=== PATIENT | female | born 1990 | race African-American/Black ===

== ENCOUNTER 2016-10-23 21:12 | Emergency (ER) | payer SELFPAY ==
[~2016-10-23] VITALS: Ht 160 cm; Wt 56.7 kg
[~2016-10-23 21:12] MED LIST: CYCL10TA9 PO; NAPR550T PO
[2016-10-23 21:50] LABS: BILIRUBIN,URINE NEGATIVE (NEGATIVE); KETONES,URINE NEGATIVE (NEGATIVE); LEUKOCYTE ESTERASE ,URINE 3+ (NEGATIVE); NITRITE,URINE NEGATIVE (NEGATIVE); PH,URINE 8 (5-9); PROTEIN,URINE NEGATIVE (NEGATIVE); UROBILINOGEN,URINE NORMAL (NORMAL)
--- NOTE | 2016-10-23 21:58 | ED Trauma-Multisystem ---
General Chief Complaint: Trauma-Non Activation Stated Complaint: R SIDE AND BACK PAIN Nursing Triage Note: FELL OFF TRAMPOLINE APPROX. 4FT. Source of Information: Patient Exam Limitations: No Limitations History of Present Illness Time Seen by Provider: 21:56 Initial Comments To ER with right sided chest wall pain after falling off of her trampoline landing on the right side of her chest on the ground. Knocked the wind out of her and she states she hyperventilated for a few minutes but then seemed to catch her breath. Location Injury Occurred: HOME Occurred: Just Prior to Arrival Severity: Mild Method of Injury: Fall Associated Symptoms (Fall): Denies Symptoms Allergies and Home Medications Allergies Coded Allergies: No Known Drug Allergies (Unverified , 07/10/13) Home Medications No Active Prescriptions or Reported Meds Constitutional: see HPI Eyes: No Symptoms Reported Ears: No Symptoms Reported Nose: No Symptoms Reported Mouth: No Symptoms Reported Throat: No Symptoms to Report Respiratory: no symptoms reported Cardiovascular: No Symptoms Reported Genitourinary: no symptoms reported Past Ihcrgia-Vyszrq-Cfrvgz Hx Patient Social History Alcohol Use: Occasionally Uses Recreational Drug Use: No Smoking Status: Never a Smoker 2nd Hand Smoke Exposure: No Recent Foreign Travel: No Contact w/Someone Who Travel: No Recent Infectious Disease Expo: No Recent Hopitalizations: No Immunizations Up To Date Tetanus Booster (TDap): Unknown PED Vaccines UTD: Yes Date of Influenza Vaccine: Jan 29, 2013 Seasonal Allergies Seasonal Allergies: Yes Surgeries HX Surgeries: No Reproductive System : No Physical Exam Vital Signs Vital Sign - Last 12Hours 10/23/16 21:41 Temp 98.1 Pulse 72 Resp 18 B/P (MAP) 121/84 Pulse Ox 100 O2 Delivery Room Air Temperature (Fahrenheit): 98.1 General Appearance: No Apparent Distress, WD/WN Head: No Evidence of Injury Eyes: Bilateral Eye EOMI, Bilateral Eye Normal Inspection, Bilateral Eye PERRL Ears, Nose, Throat: Hearing Grossly Normal, No Evidence of ENT Injury, No Dental Injury Neck: Full Range of Motion, Normal Inspection Cardiovascular: Regular Rate, Rhythm, Normal Peripheral Pulses Respiratory: Normal Breath Sounds, No Accessory Muscle Use, No Respiratory Distress, Other (there is no crepitus to palpation of the right chest wall. There is no deformity, erythema, ecchymosis, abrasion.) Gastrointestinal: Normal Bowel Sounds, Non Tender, Soft Extremity: Normal Capillary Refill, Normal Inspection Neurologic/Psychiatric: Alert, Oriented x3 Skin: Normal Color, Warm/Dry Progress/Results/Core Measures Results/Orders Lab Results Laboratory Tests Test 10/23/16 21:41 Range/Units My Orders Orders - MARQUIS CROWLEY APRN Ribs/Unilateral With Chest (10/23/16 21:40) Vital Signs/I&O Vital Sign - Last 12Hours 10/23/16 21:41 Temp 98.1 Pulse 72 Resp 18 B/P (MAP) 121/84 Pulse Ox 100 O2 Delivery Room Air Blood Pressure Mean: 96 Point of Care Testing Urine -Bedside: Negative Departure Impression Impression: Primary Impression: Chest wall contusion Disposition: HOME, SELF-CARE Condition: Stable Departure-Patient Inst. Decision time for Depature: 22:03 Referrals: [facility] (PCP/Family) Primary Care Physician Patient Instructions: CHEST CONTUSION Add. Discharge Instructions: 1. Return to ER for any concerns such as worsening pain shortness of breath cough or fevers. 2. Follow-up with your doctor next week 3. All discharge instructions reviewed with patient and/or family. Voiced understanding. Scripts No Active Prescriptions or Reported Meds Images Torso/Trunk 1 - Tenderness MARQUIS CROWLEY APRN Oct 23, 2016 21:58
[2016-10-23 22:22] LABS: SQUAMOUS EPITHELIAL CELL,UR 25-50 /HPF; WBC,URINE 25-50 /HPF
[2016-10-23 22:34] VITALS: BP 119/79
--- NOTE | 2016-10-24 07:27 | Diagnostic Imaging Report ---
INDICATION: Right rib pain post fall.. TECHNIQUE: Single view chest along with three views right ribs 10:10 p.m. CORRELATION STUDY: None FINDINGS: The heart size, mediastinal configuration and pulmonary vascularity are within normal limits. The lungs are clear with no consolidating infiltrate. There is no significant effusion or pneumothorax. There is no acute displaced right rib fracture. IMPRESSION: 1. No radiographic evidence for acute abnormality of the chest. 2. Negative for acute displaced right rib fracture. Dictated by: Dictated on workstation # [id number]
--- OUTSIDE RECORDS SUMMARY | 2016-10-24 19:40 | XMS REPORT ---
Author Author JOEL PICKETT Organization [employer] Address Unknown Phone Unavailable Care Team Providers Care Water Team Leader Name Role Phone JOEL PICKETT CP Unavailable Allergies No Known Allergies Problems No Known Problems Medications No Known Medications Results No Known Results Summary Purpose [employer] Submission
--- OUTSIDE RECORDS SUMMARY | 2016-10-24 19:40 | XMS REPORT | Continuity of Care Document ---
Author Author [facility] Organization [facility] Address Unknown Phone Unavailable Allergies Medications Problems Procedures Results Encounters ACCT No. Visit Date/Time Discharge Status Pt. Type Provider Facility Loc./Unit Complaint [id number] 07/10/2013 23:24:00 2013 00:22:00 DIS Emergency [id number] 09/25/2012 17:50:00 2012 23:59:59 CLS Outpatient
--- OUTSIDE RECORDS SUMMARY | 2016-10-24 19:40 | XMS REPORT ---
Author Author JANES CHAVEZ Organization [employer] Address Unknown Phone Unavailable Care Team Providers Care Delinquent Notice Machine Operator Name Role Phone JANES CHAVEZ Unavailable Allergies No Known Allergies Problems Problem Type Condition Code Onset Dates Condition Status Problem General counseling for initiation of other contraceptive measures V25.02 Active Problem Counseling on other sexually transmitted diseases V65.45 Active Problem Screening examination for venereal disease V74.5 Active Medications No Known Medications Results No Known Results Summary Purpose [employer] Submission
--- OUTSIDE RECORDS SUMMARY | 2016-10-24 19:41 | XMS REPORT ---
Author JOEL Gant Organization [employer] Address Unknown Phone Unavailable Care Team Providers Care Tractor Operator Battery Name Role Phone JOEL PICKETT CP Unavailable Allergies No Known Allergies Problems Problem Type Condition Code Onset Dates Condition Status Problem General counseling for initiation of other contraceptive measures V25.02 Active Problem Counseling on other sexually transmitted diseases V65.45 Active Problem Screening examination for venereal disease V74.5 Active Medications No Known Medications Results No Known Results Summary Purpose [employer] Submission
--- OUTSIDE RECORDS SUMMARY | 2016-10-24 19:41 | XMS REPORT ---
Author Author BRAYDEN PLEITEZ [facility] [employer] Address Unknown Phone Unavailable Care Team Providers Care Mri Manager Name Role Phone BRAYDEN PLEITEZ CP Unavailable Allergies, Adverse Reactions, Alerts Substance Reaction Event Type N.K.D.A. Info Not Available Non Drug Allergy Problems Problem Type Condition Code Onset Dates Condition Status Assessment Encounter for initial prescription of contraceptive pills Z30.011 Active Assessment Vaginal discharge N89.8 Active Assessment Encounter for counseling regarding contraception Z30.9 Active Assessment Hx of sexually transmitted disease Z86.19 Active Medications Medication Code System Code Instructions Start Date End Date Status Dosage Ortho Tri-Cyclen (28) [facility] [address]-46 0.18/0.215/0.25 MG-35 MCG Orally Once a day Feb 24, 2016 1 tablet Zithromax [facility] [address]-04 250 MG Orally Once a day Feb 24, 2016 4 tablets Flagyl [facility] [address]-86 500 MG Orally 2 times a day Feb 24, 2016 Mar 02, 2016 1 tablet Procedures Procedure Coding System Code Date TRICHOMONAS ASSAY W/OPTIC CPT-4 75373 Feb 24, 2016 LARA VAG, DNA, DIR PROBE CPT-4 15060 Feb 24, 2016 URINE TEST CPT-4 15044 Feb 24, 2016 CULTURE, BACTERIA, OTHER CPT-4 78812 Feb 24, 2016 No Charge CPT-4 63571 Feb 24, 2016 Office Visit, Est Pt., Level 4 CPT-4 83588 Feb 24, 2016 Vital Signs Date/Time: Feb 24, 2016 Cardiac Monitoring Heart Rate 76 bpm Weight 126.6 lbs Height 64 in BMI 21.73 Index Blood Pressure Diastolic 68 mmHg Blood Pressure Systolic 104 mmHg Results No Known Results Summary Purpose [employer] Submission
== END 2016-10-23 22:17 | disposition home or self-care (01) ==
LOC: EDUNIT# 21:12 → ER 21:16
DX: S20.20XA Contusion of thorax, unspecified, initial encounter (principal); Z32.02 Encounter for pregnancy test, result negative; W17.89XA Other fall from one level to another, initial encounter; Y93.44 Activity, trampolining
CPT/HCPCS: 71101; 81000; 84703; 87088; 99282

== ENCOUNTER → 2017-05-17 | Outpatient (CLI) | payer SELFPAY ==
--- NOTE | 2017-05-17 19:02 | Diagnostic Imaging Report ---
PROCEDURE: US OB SINGLE FETUS <14 WKS. TECHNIQUE: Multiple real-time grayscale images were obtained over the gravid uterus in various projections. INDICATION: Early . FINDINGS: There are no prior studies available for comparison. There is a gestational sac within the uterus containing a single live fetus. heart motion is noted and a rate of 174 bpm is recorded. The crown-rump length suggests the estimated gestational age is 8 weeks 6 days +/- 1 week. There are no obvious abnormalities identified. The amniotic fluid volume is within normal limits. At this time, it is not certain where the placenta will develop. There is no pelvic mass or free fluid collection noted. IMPRESSION: 1. There is a single live intrauterine of approximately 8 weeks 6 days gestation +/- 1 week. The EDC is 12/21/2017. 2. There are no obvious abnormalities identified. If a more sensitive evaluation of the anatomy is desired, then a short-term (10-12 weeks) follow-up OB ultrasound exam should be obtained. 3. There is no pelvic mass or free fluid collection noted. Dictated on workstation # [id number]
== END ==
LOC: RAD 11:58
PROVIDERS: ATTEND Family Medicine
DX: Z34.01 Encounter for supervision of normal first pregnancy, first trimester (principal); Z3A.08 8 weeks gestation of pregnancy
CPT/HCPCS: 76801

== ENCOUNTER → 2017-07-19 | Outpatient (CLI) | payer MEDICAID ==
--- NOTE | 2017-07-19 11:51 | Diagnostic Imaging Report ---
INDICATION: survey. TECHNIQUE: Multiple Real-time grayscale images were obtained over the gravid uterus. COMPARISON: 05/17/2017. FINDINGS: There is a single live fetus in a cephalic presentation. The placenta is anterior. The placenta appears to cover the internal cervical os, consistent with previa. The amniotic fluid volume is normal. The heart rate was recorded at 142 BPM. The survey demonstrates the kidneys, bladder, and stomach to be unremarkable. The spine is unremarkable. The intracranial structures are unremarkable. There is a three-vessel cord with a normal cord insertion. Biometrical measurements are as follows: Biparietal 3.75 cm, age 17 weeks 4 days. Head circumference 15.08 cm, age 18 weeks 1 days. Abdominal circumference 12.89 cm, age 18 weeks 4 days. Femur length 2.86 cm, age 18 weeks 6 days. Sonographic estimate age: 18 weeks 2 days. Sonographic estimated date of delivery: 12-18-17. Estimated Weight: 224 gm (+/- 36 gm). LMP percentile: 84%. heart rate: 142 beats per minute. number: 1 of 1. IMPRESSION: Single live IUP of 18-20 weeks gestational age demonstrating normal interval growth when compared with the prior ultrasound from 05/17/2017. Note is made of an anterior placenta previa. A followup ultrasound in the later second or third trimester is recommended. Dictated by: Dictated on workstation # [id number]
== END ==
LOC: RAD 09:54
PROVIDERS: ATTEND Family Medicine
DX: Z36.89 Encounter for other specified antenatal screening (principal); Z3A.18 18 weeks gestation of pregnancy
CPT/HCPCS: 76805

== ENCOUNTER → 2017-08-30 | Outpatient (CLI) | payer MEDICAID ==
--- NOTE | 2017-08-30 16:16 | Diagnostic Imaging Report ---
PROCEDURE: US right lower extremity venous. TECHNIQUE: Multiple real-time grayscale images were obtained over the right lower extremity in various projections. Additional duplex Doppler and color Doppler images were also obtained. INDICATION: Right calf pain. There are no prior studies available for comparison. FINDINGS: There is generally good blood flow and compressibility at all levels. There is no sign of a deep venous thrombosis. IMPRESSION: There is no evidence for deep venous thrombosis of the right lower extremity. Dictated by: Dictated on workstation # [id number]
== END ==
LOC: RAD 15:42
PROVIDERS: ATTEND Family Medicine
DX: O99.89 Other specified diseases and conditions complicating pregnancy, childbirth and the puerperium (principal); M79.661 Pain in right lower leg; Z3A.00 Weeks of gestation of pregnancy not specified

== ENCOUNTER 2017-09-18 14:25 | Outpatient (CLI) | payer MEDICAID ==
[~2017-09-18] VITALS: Ht 160 cm; Wt 63.2 kg
[2017-09-18 14:30] VITALS: BP 125/82
--- NOTE | 2017-09-18 15:54 | Diagnostic Imaging Report ---
INDICATION: Vaginal bleeding and history of placenta previa. TECHNIQUE: Multiple real-time grayscale images were obtained over the gravid uterus. COMPARISON: 07/19/2017. FINDINGS: There is a single live fetus in a cephalic presentation. Placenta is anterior. No previa is identified on today's study. The amniotic fluid volume is normal. heart rate is recorded at 149 beats per minute. IMPRESSION: Obstetric ultrasound demonstrating an anterior placenta with no evidence of placenta previa on today's study. Dictated by: Dictated on workstation # [id number]
--- NOTE | 2017-09-20 10:56 | Physician Query-Final Dx ---
NORBERTO ESCALONA 09/20/17 1056: Clinic Account Progress/Dx Physician Query: Please give diagnosis Date of Service September 18, 2017 at 14:25 CARROLL JERONIMO MD 09/22/17 0949: Clinic Account Progress/Dx DIAGNOSIS: Diagnosis 1. IUP at 27 weeks 2. Vaginal spotting of blood--reassuring NORBERTO ESCALONA September 20, 2017 10:56 CARROLL JERONIMO MD September 22, 2017 09:49
== END 2017-09-18 16:05 | disposition home or self-care (01) ==
LOC: WSo 14:25 → LDRP 14:25 → WSo 16:05
PROVIDERS: ATTEND Family Medicine
DX: O26.852 Spotting complicating pregnancy, second trimester (principal); Z3A.27 27 weeks gestation of pregnancy
CPT/HCPCS: 76816; 99213

== ENCOUNTER 2017-11-17 15:49 | Observation (INO) | payer MEDICAID ==
[~2017-11-17] VITALS: Ht 162.6 cm; Wt 71.4 kg
[2017-11-17 16:07] VITALS: BP 127/74
[2017-11-17 16:40] VITALS: BP 117/68
[2017-11-17] MEDS ORDERED: hydrOXYzine (VISTARIL) 25 MG CAP PO NR (18:10)
[2017-11-17 19:39] VITALS: BP 126/76
[2017-11-17] MEDS ORDERED: D5 LR IV SOLUTION 1,000 ML IV ONE (20:05)
[2017-11-17] MEDS ORDERED: TERBUTALINE INJ 1 MG/ML (BRETHINE) AMP ONE (20:05)
[2017-11-17] MEDS ORDERED: TERBUTALINE INJ 1 MG/ML (BRETHINE) AMP SC ONE (20:15)
[2017-11-17] MEDS: D5 LR IV SOLUTION 1,000 ML IV SCH (20:26)
[2017-11-17 23:39] VITALS: BP 125/69
[2017-11-18] MEDS: D5 LR IV SOLUTION 1,000 ML IV SCH (03:26)
[2017-11-18 04:00] VITALS: BP 109/65
[2017-11-18 07:45] VITALS: BP 117/77
[2017-11-18] MEDS ORDERED: HYDR25CA PO (10:24)
[2017-11-18] MEDS ORDERED: METR500T PO (10:31)
[2017-11-18] MEDS ORDERED: hydrOXYzine (VISTARIL) 25 MG CAP PO ONE (10:45)
[2017-11-18] MEDS ORDERED: metroNIDAZOLE 500 MG (FLAGYL) TAB PO ONE (10:45)
--- NOTE | 2017-11-20 21:31 | Physician Query-Final Dx ---
PITA CALLEJAS 11/20/172130: Final Diagnosis Give Final Diagnosis Please give Final Diagnosis CLEVELAND MARVIN MD 11/28/172016: Final Diagnosis Give Final Diagnosis Third trimester Decreased Movement PITA CALLEJAS Nov 20, 2017 21:31 CLEVELAND MARVIN MD Nov 28, 2017 20:17
--- NOTE | 2017-11-28 20:43 | Short Stay Summary ---
History of Present Illness History of Present Illness Reason for visit/HPI Patient 35 weeks that presented to ER with contractions and decreased movement. Patient had cervical change and was admitted for observation due to gestation. Date of Admission Nov 17, 2017 at 15:49 Date of Discharge Nov 18, 2017 at 10:40 Time Seen by Provider: 09:45 Attending Physician Kourtney Valencia MD Admitting Physician Matthias Ruiz MD Consult Allergies and Home Medications Allergies Coded Allergies: No Known Drug Allergies (Unverified , 07/10/13) Home Medications Hydroxyzine Pamoate 25 Mg Capsule, 25 MG PO BID Prescribed by: NIVIA BLAKE on 11/18/17 1024 Metronidazole 500 Mg Tablet, 500 MG PO BID Prescribed by: NIVIA BLAKE on 11/18/17 1031 Patient Home Medication List Home Medication List Reviewed: Yes Past Gbwmsnc-Phudnb-Gihiwt Hx Patient Social History Alcohol Beverage of Choice: Beer 2nd Hand Smoke Exposure: No Physical Abuse Screen: No Sexual Abuse: No Recent Foreign Travel: No Contact w/other who traveled: No Recent Hopitalizations: No Recent Infectious Disease Expo: No Immunizations Up To Date Tetanus Booster (TDap): Unknown Pediatric: Yes Date of Influenza Vaccine: Jan 29, 2013 Seasonal Allergies Seasonal Allergies: Yes Surgeries No Respiratory No Cardiovascular No Neurological No Reproductive System Expected Date of Delivery: Dec 21, 2017 Hx : 1 Genitourinary No Gastrointestinal No Musculoskeletal No Endocrine History of Endocrine Disorders: No HEENT History of HEENT Disorders: No Cancer No Psychosocial History of Psychiatric Problem: No Integumentary History of Skin or Integumenta: No Blood Transfusions History of Blood Disorders: No Constitutional: no symptoms reported; No chills, No fever, No malaise, No weakness EENTM: no symptoms reported Respiratory: no symptoms reported; No cough, No short of breath Cardiovascular: no symptoms reported; No chest pain, No edema, No palpitations Gastrointestinal: abdominal pain (with contractions) Genitourinary: discharge; No dysuria; frequency; No hematuria : Yes Musculoskeletal: no symptoms reported; No back pain, No joint pain, No muscle pain Skin: no symptoms reported Psychiatric/Neurological: No Symptoms Reported Physical Exam Vital Signs Capillary Refill : Height, Weight, BMI Height: 5'4.00" Weight: 157lbs. 6.0oz. 71.517407zp; 27.0 BMI Method:Stated General Appearance: No Apparent Distress, WD/WN HEENT: PERRL/EOMI Neck: Full Range of Motion, Normal Inspection, Non Tender, Supple Respiratory: Chest Non Tender, Normal Breath Sounds, No Accessory Muscle Use, No Respiratory Distress Cardiovascular: Regular Rate, Rhythm, No Edema, No Murmur Gastrointestinal: Normal Bowel Sounds, Non Tender, Soft, Other (gravid, no contractions palpated) Back: No CVA Tenderness, No Vertebral Tenderness Extremity: Non Tender, No Calf Tenderness, No Pedal Edema Neurologic/Psychiatric: Alert, Oriented x3, Normal Mood/Affect Skin: Normal Color, Warm/Dry Lymphatic: No Adenopathy Short Stay Diagnosis Discharge Diagnosis-Short Stay Admission Diagnosis: Third trimester pregnacy 35 week gestation labor Final Discharge Diagnosis: See Above Conclusion Conclusion/Plan 26 yo @ 35 wga that presented with labor. Patient had cervical change and was given a dose of terbutiline and visteril with IV hydration and contractions stopped. No further cervical change was made and patient was discharged home with close follow up in clinic 3 days later. Copy Copies To 1: KORTNEY ANGELES MD, HOLLY R MD Nov 28, 2017 20:43
[2017-12-05] MEDS ORDERED: IBUP-844 PO (07:33)
== END 2017-11-18 10:40 | disposition home or self-care (01) ==
LOC: LDRP 15:49 → WSo 15:58 → LDRP 15:59 → WSo 15:59 → UNDOADMOB 19:56 → LDRP 19:56 → WSo 11-18 10:45 → UNDODISOB 11-18 10:51 → EDSTATUS 11-22 16:48
PROVIDERS: ADMIT Family Medicine; ATTEND Family Medicine
DX: O60.03 Preterm labor without delivery, third trimester (principal); O36.8130 Decreased fetal movements, third trimester, not applicable or unspecified; Z3A.35 35 weeks gestation of pregnancy
CPT/HCPCS: 96360; 96361; 96372; 99211; G0378

== ENCOUNTER 2017-12-03 09:14 | Inpatient (IN) | payer MEDICAID ==
[2017-12-03] VITALS (29 sets, daily range): BP systolic 121–172; BP diastolic 64–97
[~2017-12-03] VITALS: Ht 162.6 cm; Wt 73.1 kg
[~2017-12-03 09:14] MED LIST changes: +HYDR25CA PO; +METR500T PO
[2017-12-03] MEDS ORDERED: D5 LR IV SOLUTION 1,000 ML IV SCH (09:52)
[2017-12-03] MEDS ORDERED: D5 LR IV SOLUTION 1,000 ML IV ONE (09:53)
[2017-12-03] MEDS ORDERED: SUFENTA 0.6MCG/ML BUPIVA 0.125 0 ML ONE (10:03)
[2017-12-03 10:18] LABS: BASOPHILS % (AUTO) 0 % (0-10); EOSINOPHILS # (AUTO) 0.1 10^3/uL (0.0-0.3); EOSINOPHILS % (AUTO) 1 % (0-10); HEMATOCRIT 33 % (35-52); LYMPHOCYTES # (AUTO) 1.9 X 10^3 (1.0-4.0); LYMPHOCYTES % (AUTO) 21 % (12-44); MEAN CORPUSCULAR HEMOGLOBIN 32 PG (25-34); MEAN CORPUSCULAR HGB CONC 33 G/DL (32-36); MEAN CORPUSCULAR VOLUME 95 FL (80-99); MEAN PLATELET VOLUME 12.8 FL (7.4-10.4); MONOCYTES # (AUTO) 0.6 X 10^3 (0.0-1.0); MONOCYTES % (AUTO) 7 % (0-12); NEUTROPHILS # (AUTO) 6.5 X 10^3 (1.8-7.8); NEUTROPHILS % (AUTO) 71 % (42-75); PLATELET COUNT 109 10^3/uL (130-400); RED BLOOD COUNT 3.49 10^6/uL (4.35-5.85); RED CELL DISTRIBUTION WIDTH 13.9 % (10.0-14.5); WHITE BLOOD COUNT 9.2 10^3/uL (4.3-11.0)
[2017-12-03] MEDS ORDERED: OXYTOCIN/NORMAL SALINE 500 ML IV SCH ×2 (10:56→14:00)
--- NOTE | 2017-12-03 11:01 | History & Physical-OB ---
OB - Chief Complaint & HPI Date/Time Date of Admission: Date of Admission: Dec 03, 2017 at 09:50 Time Seen by Provider: 10:45 Chief Complaint/History OB-Reason for Admission/Chief: Onset of Labor Hx : 1 Hx Para: 0 Expected Date of Delivery: Dec 20, 2017 Gestational Age in Weeks: 37 Gestational Age in Days: 4 Admission Nurse Assessment Rev: Yes History of Labs GBS negative Allergies and Home Medications Allergies Coded Allergies: No Known Drug Allergies (Unverified , 07/10/13) Home Medications Hydroxyzine Pamoate 25 Mg Capsule, 25 MG PO BID Prescribed by: NIVIA BLAKE on 11/18/17 1024 Metronidazole 500 Mg Tablet, 500 MG PO BID Prescribed by: NIVIA BLAKE on 11/18/17 1031 Patient Home Medication List Home Medication List Reviewed: Yes OB - History Hx of Present Care: Yes Ultrasounds: Normal mid trimester US Obstetrical Complications: None Medical Complications: None Patient Past Medical History No chronic medical problems Social History/Family History 2nd Hand Smoke Exposure: No Immunizations Tetanus Booster (TDap): Unknown Date of Influenza Vaccine: Jan 29, 2013 OB - Admission Exam Physical Exam HEENT: Moist Membranes Heart: Rhythm Normal Lungs: Clear Abdomen: Gravid Cervical Dilatation: 6cm (on presentation) Effacement: 75% Station: -2 Membranes: Intact Heart Rate: 140's Accelerations: Accelerations Present Short Term Variability: Present Fci Variability: Average (6-25) Contractions on Admission: 6-10 Minutes Apart Intensity: Moderate Labs Laboratory Tests Test 12/03/17 10:05 Range/Units White Blood Count 9.2 4.3-11.0 10^3/uL Red Blood Count 3.49 L 4.35-5.85 10^6/uL Hemoglobin 11.0 L 11.5-16.0 G/DL Hematocrit 33 L 35-52 % Mean Corpuscular Volume 95 80-99 FL Mean Corpuscular Hemoglobin 32 25-34 PG Mean Corpuscular Hemoglobin Concent 33 32-36 G/DL Red Cell Distribution Width 13.9 10.0-14.5 % Platelet Count 109 L 130-400 10^3/uL Mean Platelet Volume 12.8 H 7.4-10.4 FL Neutrophils (%) (Auto) 71 42-75 % Lymphocytes (%) (Auto) 21 12-44 % Monocytes (%) (Auto) 7 0-12 % Eosinophils (%) (Auto) 1 0-10 % Basophils (%) (Auto) 0 0-10 % Neutrophils # (Auto) 6.5 1.8-7.8 X 10^3 Lymphocytes # (Auto) 1.9 1.0-4.0 X 10^3 Monocytes # (Auto) 0.6 0.0-1.0 X 10^3 Eosinophils # (Auto) 0.1 0.0-0.3 10^3/uL Basophils # (Auto) 0.0 0.0-0.1 10^3/uL OB - Assessment/Plan/Diagnosis Assessment Assessment: active labor (at 37w4d) Admission Dx IUP at term 37w4d in labor Admission Status: Inpatient Order (span 2 midnights) Reason for Inpatient Admission: L&D Plan Plan: Expectant Management Induction Method: AROM Other Plan Epidural CARROLL JERONIMO MD Dec 03, 2017 11:01
[2017-12-03] MEDS ORDERED: BUPIVACAINE 0.25% 30 ML (SENSORCAINE) VIAL ONE (11:06)
[2017-12-03] MEDS ORDERED: fentaNYL INJECTION 100 MCG/2 ML AMP ONE (11:06)
[2017-12-03] MEDS ORDERED: SUFENTA 0.6MCG/ML BUPIVA 0.125 100 ML ONE (11:07)
[2017-12-03] MEDS ORDERED: LACTATED RINGERS 1,000 ML IV ONE (11:50)
[2017-12-03] MEDS ORDERED: NALOXONE 0.4 MG/ML 1 ML (NARCAN) VIAL IV PRN (12:00)
[2017-12-03] MEDS ORDERED: CATHETER FLUSH 10 ML SYR IV PRN (12:00)
[2017-12-03] MEDS ORDERED: EPIDURAL (SUFENTA 0.6MCG/ML BUPIVA 0.125%) 100 ML BAG EPI SCH (12:00)
[2017-12-03] MEDS ORDERED: TETANUS,DIPTH,PERTUSS P/F (BOOSTRIX) 0.5 ML VIAL IM ONE (14:00)
[2017-12-03] MEDS ORDERED: CATHETER FLUSH 10 ML SYR IV SCH (14:00)
[2017-12-03] MEDS ORDERED: MEASLES,MUMPS,RUBELLA 1 EA INJ SQ ONE (14:00)
[2017-12-03] MEDS ORDERED: HYDROcodone/APAP 5 MG/325 MG (LORTAB) TAB PO PRN (14:00)
--- NOTE | 2017-12-03 14:04 | OB Labor & Delivery Record ---
L&D History Date of Service Date of Service: Dec 03, 2017 History Expected Date of Delivery: Dec 20, 2017 Gestational Age in Weeks: 37 Hx : 1 Hx Para: 0 Complications Events: Routine care Operative Indications (Cesarea: N/A-Vaginal Delivery Intrapartal Events: None L&D Stage1 Stage One Onset of Labor - Date: Dec 03, 2017 Onset of Labor - Time: 06:00 Monitors and Tracing Monitor Mode: Internal Monitor Accelerations: Uniform Monitor Decelerations: Early Public Services Assistant Variability: Average (6-10) Short Term Variability: Present Presentation: Vertex Signs of Distress by FHT Signs of Distress no Rupture of Membranes Spontaneous Ruture of Membrane: No Amniotic Membrane Fluid Desc.: Clear Induction/Anesthesia Epidural Cath Placement - Time: 1127 L&D Stage2 Stage Two Stage II Date: Dec 03, 2017 Stage II Time: 13:34 Monitors and Tracing Monitor Mode: Internal Monitor Accelerations: Uniform Monitor Decelerations: Early Fci Variability: Average (6-10) Short Term Variability: Present Position: Left Occiput Anterior Presentation: Vertex Signs of Distress by FHT Signs of Distress no Cord Descript/Complications Cord Vessel Description: 3 Vessels Delivery Type Delivery Method: Spontaneous Vaginal Anterior Shoulder: Left Episiotomy/Perineal Laceration Laceraction(s)/Extensions: Yes Episiotomy Description: Midline Sutures Used: Vicryl Condition of Delivery 1 minute Comment: 8 5 minute Comment: 9 Condition of Infant Condition of Infant: Living Exam: No Observed Abnormalities Resuscitation Resuscitation: N/A - Spontaneous Resp L&D Stage3 Stage Three Stage III Date: Dec 03, 2017 Stage III Time: 13:36 Pictocin Pitocin ml/hr: 125 Placenta Delivery Placenta Delivery: Spontaneous Delivery Summary Summary Estimated blood loss (mL): 200 Condition of Delivery Examined: Cervix Examined Post Hemorrhage: No Intervention Required none CARROLL JERONIMO MD Dec 03, 2017 14:04
[2017-12-03] MEDS: IBUPROFEN 600 MG (MOTRIN) TAB PO SCH ×2 (17:20→23:13)
[2017-12-03] MEDS: WITCH HAZEL(TUCKS) 40 EA JAR TOP PRN (18:52)
[2017-12-03] MEDS: BENZOCAINE/MENTHOL (DERMOPLAST) 56 ML CAN TP PRN (18:52)
[2017-12-04] VITALS (7 sets, daily range): BP systolic 119–161; BP diastolic 67–103
[2017-12-04 05:40] LABS: BASOPHILS % (AUTO) 0 % (0-10); EOSINOPHILS # (AUTO) 0.1 10^3/uL (0.0-0.3); EOSINOPHILS % (AUTO) 1 % (0-10); HEMATOCRIT 29 % (35-52); HEMOGLOBIN 9.7 G/DL (11.5-16.0); LYMPHOCYTES # (AUTO) 1.6 X 10^3 (1.0-4.0); LYMPHOCYTES % (AUTO) 17 % (12-44); MEAN CORPUSCULAR HEMOGLOBIN 31 PG (25-34); MEAN CORPUSCULAR HGB CONC 33 G/DL (32-36); MEAN CORPUSCULAR VOLUME 95 FL (80-99); MEAN PLATELET VOLUME 12.8 FL (7.4-10.4); MONOCYTES # (AUTO) 0.6 X 10^3 (0.0-1.0); MONOCYTES % (AUTO) 6 % (0-12); NEUTROPHILS # (AUTO) 7.5 X 10^3 (1.8-7.8); NEUTROPHILS % (AUTO) 76 % (42-75); PLATELET COUNT 112 10^3/uL (130-400); RED BLOOD COUNT 3.09 10^6/uL (4.35-5.85); RED CELL DISTRIBUTION WIDTH 13.9 % (10.0-14.5); WHITE BLOOD COUNT 9.8 10^3/uL (4.3-11.0)
[2017-12-04] MEDS: IBUPROFEN 600 MG (MOTRIN) TAB PO SCH ×3 (06:04→19:53)
--- NOTE | 2017-12-04 07:50 | Progress Note (SOAP) ---
Subjective Subjective/Events-last exam No current complaints. No heavy vaginal bleeding. Review of Systems Date Seen by Provider: Dec 04, 2017 Time Seen by Provider: 07:30 Objective Exam Last Set of Vital Signs Vital Signs Date Time Temp Pulse Resp B/P (MAP) Pulse Ox O2 Delivery O2 Flow Rate FiO2 12/04/17 04:02 97.4 72 16 139/87 (104) 97 Room Air Capillary Refill : I&O Intake and Output 12/04/17 00:00 Intake Total 1900 ml Balance 1900 ml Intake IV Total 1900 ml Daily Weight Change No Abdomen: Soft (with firm uterus) Results/Procedures Lab Laboratory Tests 12/03/17 10:05: White Blood Count 9.2, Red Blood Count 3.49L, Hemoglobin 11.0L, Hematocrit 33L, Mean Corpuscular Volume 95, Mean Corpuscular Hemoglobin 32, Mean Corpuscular Hemoglobin Concent 33, Red Cell Distribution Width 13.9, Platelet Count 109L, Mean Platelet Volume 12.8H, Neutrophils (%) (Auto) 71, Lymphocytes (%) (Auto) 21 , Monocytes (%) (Auto) 7, Eosinophils (%) (Auto) 1, Basophils (%) (Auto) 0, Neutrophils # (Auto) 6.5, Lymphocytes # (Auto) 1.9, Monocytes # (Auto) 0.6, Eosinophils # (Auto) 0.1, Basophils # (Auto) 0.0 12/04/17 05:08: White Blood Count 9.8, Red Blood Count 3.09L, Hemoglobin 9.7L, Hematocrit 29L, Mean Corpuscular Volume 95, Mean Corpuscular Hemoglobin 31, Mean Corpuscular Hemoglobin Concent 33, Red Cell Distribution Width 13.9, Platelet Count 112L, Mean Platelet Volume 12.8H, Neutrophils (%) (Auto) 76H, Lymphocytes (%) (Auto) 17, Monocytes (%) (Auto) 6, Eosinophils (%) (Auto) 1, Basophils (%) (Auto) 0, Neutrophils # (Auto) 7.5, Lymphocytes # (Auto) 1.6, Monocytes # (Auto) 0.6, Eosinophils # (Auto) 0.1, Basophils # (Auto) 0.0 Assessment/Plan Assessment/Plan Assessment & Plan 1. S/P day 1 -routine PP care orders Clinical Quality Measures DVT/VTE Risk/Contraindication: Risk Factor Score Per Nursin RFS Level Per Nursing on Admit: 1=Low/No VTE PPX CARROLL JERONIMO MD Dec 04, 2017 07:50
[2017-12-04] MEDS: PRENATAL VITAMIN 1 EA TAB PO SCH (08:20)
--- NOTE | 2017-12-04 12:41 | Anesthesia-Regional Post-Op ---
Regional Patient Condition Mental Status: Alert, Oriented x3 Circulation: Same as Pre-Op Headache: Absent Sensation: Full Recovery Motor Block: Absent Post Op Complications Complications None Follow Up Care/Instructions Patient Instructions None needed. Anesthesia/Patient Condition Patient is doing well, no complaints, stable vital signs, no apparent adverse anesthesia problems. No complications reported per nursing. MIN BEST CRNA Dec 04, 2017 12:41
[2017-12-05] MEDS: IBUPROFEN 600 MG (MOTRIN) TAB PO SCH ×2 (02:42→09:20)
[2017-12-05 06:00] VITALS: BP 155/89
--- NOTE | 2017-12-05 07:29 | Discharge Summary ---
Diagnosis/Chief Complaint Date of Admission Dec 03, 2017 at 09:50 Date of Discharge December 05, 2017 Discharge Date: Dec 05, 2017 Discharge Time: 07:45 Admission Diagnosis Admission Diagnosis 1. Intrauterine at term Discharge Diagnosis 1. Intrauterine at term 37 weeks 4 days gestation 2. Isolated high blood pressure following delivery Reason Hospital Visit 26-year-old 1 term 1 initially presented to labor and delivery during the morning of December 03, 2017 in labor. Patient was dilated to 6 cm upon presentation and noted to be 37 weeks 4 days gestation. Her EDC is December 20, 2017. Her care was obtained through [facility] and was essentially unremarkable. Discharge Summary-OBS Procedures 1. Epidural per anesthesia 2. Spontaneous vaginal delivery 3. Repair of midline episiotomy Discharge Physical Examination Allergies: Coded Allergies: No Known Drug Allergies (Unverified , 07/10/13) Vitals & I&Os Vital Signs Date Time Temp Pulse Resp B/P (MAP) Pulse Ox O2 Delivery O2 Flow Rate FiO2 12/05/17 06:00 97.6 66 18 155/89 (111) Room Air 12/04/17 20:00 98 General Appearance: No Acute Distress Respiratory: Clear to Auscultation Cardiovascular: Regular Rate Abdominal: Soft (with firm uterus) Hospital Course Patient admitted during the morning of December 03, 2017 in labor. Patient ultimately went on to receive epidural per anesthesia and spontaneous vaginal delivery. Infant had received Apgars of 8 at 1 minute and 9 at 5 minutes. See labor and delivery summary for full details. Following delivery patient underwent routine care orders. She had no complications other than occasional headache during the course of her stay. She was noted to have slight elevation of blood pressure but this resolved on dismissal. She was noted to have a hemoglobin of 9.7 compared to 11.1 on admission. She was without shortness of breath she denied any leg pain. She tolerated regular diet and was felt ready for dismissal in the morning of December 05, 2017. Discharge Instructions to patient/family Please see electronic discharge instructions given to patient. Discharge Medications Reviewed and agree with Discharge Medication list on patient's Discharge Instruction sheet Clinical Quality Measures DVT/VTE Risk/Contraindication: Risk Factor Score Per Nursin RFS Level Per Nursing on Admit: 1=Low/No VTE PPX CARROLL JERONIMO MD Dec 05, 2017 07:29
[2017-12-05] MEDS ORDERED: IBUP-844 PO (07:33)
--- NOTE | 2017-12-05 07:34 | Discharge Inst-Women's Service ---
Discharge Inst-Women's Serv Depart Medication/Instructions New, Converted or Re-Newed RX: Transmitted to Pharmacy Consults/Follow Up Additional Follow Up: Yes (Dr. Jeronimo in 6 weeks at [facility]) Activity Activity: Activity as Tolerated Driving Instructions: No Driving for 1 Week Nothing Inside Vagina: No [place] (For 6 weeks) Diet Discharge Diet: Regular Diet Return to The Hospital For: As below Symptoms to Report to : Bleeding Excessive, Pain Increased, Fever Over 101 Degrees F, Vaginal Bleeding Increase, Vaginal Discharge Foul For Any Problems or Questions: Contact Your Physician CARROLL JERONIMO MD Dec 05, 2017 07:34
[2017-12-05 09:16] VITALS: BP 149/82
[2017-12-05] MEDS: BENZOCAINE/MENTHOL (DERMOPLAST) 56 ML CAN TP PRN (09:19)
[2017-12-05] MEDS: PRENATAL VITAMIN 1 EA TAB PO SCH (09:19)
[2017-12-05] MEDS: WITCH HAZEL(TUCKS) 40 EA JAR TOP PRN (09:19)
== END 2017-12-05 12:00 | disposition home or self-care (01) | DRG 774 ==
LOC: LDRP 09:14 → WSo 09:14 → LDRP 09:50
PROVIDERS: ADMIT Family Medicine; ATTEND Family Medicine
PROC: 10E0XZZ Delivery of Products of Conception, External Approach (ICD-10-PCS; principal; 2017-12-03)
PROC: 0W8NXZZ Division of Female Perineum, External Approach (ICD-10-PCS; 2017-12-03)
DX: O90.89 Other complications of the puerperium, not elsewhere classified (principal); R03.0 Elevated blood-pressure reading, without diagnosis of hypertension; Z37.0 Single live birth; Z3A.37 37 weeks gestation of pregnancy
CPT/HCPCS: 36415; 85025; 86850; 86900; 86901; 99212

== ENCOUNTER 2018-10-23 03:57 | Emergency (ER) | payer MEDICAID ==
[~2018-10-23] VITALS: Ht 162.6 cm; Wt 54.4 kg
[~2018-10-23 03:57] MED LIST changes: +IBUP-844 PO
--- OUTSIDE RECORDS SUMMARY | 2018-10-23 04:04 | XMS REPORT | Continuity of Care Document ---
Author Organization Unknown Address Unknown Allergies Active Description Code Type Severity Reaction Onset Reported/Identified Relationship to Patient Clinical Status Yes No Known Drug Allergies [id number] Drug Allergy Unknown N/A 07/10/2013 Medications There is no data. Problems Date Dx Coded Attending Type Code Diagnosis Diagnosed By 10/23/2016 MARQUIS CROWLEY APRN Ot R07.89 OTHER CHEST PAIN 10/23/2016 MARQUIS CROWLEY APRN Ot S20.20XA CONTUSION OF THORAX, UNSPECIFIED, INITIA 10/23/2016 MARQUIS CROWLEY APRN Ot W17.89XA OTHER FALL FROM ONE LEVEL TO ANOTHER, IN 10/23/2016 MARQUIS CROWLEY APRN Ot Y93.44 ACTIVITY, TRAMPOLINING 10/23/2016 MARQUIS CROWLEY APRN Ot Z32.02 ENCOUNTER FOR TEST, RESULT NEG 07/14/2017 CARROLL JERONIMO MD, Ot Z34.01 ENCNTR FOR SUPRVSN OF NORMAL FIRST PREG, 07/14/2017 CARROLL JERONIMO MD, Ot Z3A.08 8 WEEKS GESTATION OF 08/03/2017 CARROLL JERONIMO MD, Ot Z36.89 ENCOUNTER FOR OTHER SPECIFIED 08/03/2017 CARROLL JERONIMO MD, Ot Z3A.18 18 WEEKS GESTATION OF 08/30/2017 CARROLL JERONIMO MD, Ot Z34.01 ENCNTR FOR SUPRVSN OF NORMAL FIRST PREG, 08/30/2017 CARROLL JERONIMO MD, Ot Z3A.08 8 WEEKS GESTATION OF 08/30/2017 CARROLL JERONIMO MD, Ot Z36.89 ENCOUNTER FOR OTHER SPECIFIED 08/30/2017 CARROLL JERONIMO MD, Ot Z3A.18 18 WEEKS GESTATION OF 08/31/2017 CARROLL JERONIMO MD, Ot M79.661 PAIN IN RIGHT LOWER LEG 08/31/2017 CARROLL JERONIMO MD, Ot O99.89 OT DISEASES AND CONDITIONS COMPL PREG/C 08/31/2017 CARROLL JERONIMO MD, Ot Z3A.00 WEEKS OF GESTATION OF NOT SPEC 08/31/2017 CARROLL JERONIMO MD, Ot Z34.01 ENCNTR FOR SUPRVSN OF NORMAL FIRST PREG, 08/31/2017 CARROLL JERONIMO MD, Ot Z3A.08 8 WEEKS GESTATION OF 09/18/2017 KORTNEY ANGELES MD Ot O26.852 SPOTTING COMPLICATING , SECOND 09/18/2017 KORTNEY ANGELES MD Ot Z3A.27 27 WEEKS GESTATION OF 09/26/2017 KORTNEY ANGELES MD Ot O26.852 SPOTTING COMPLICATING , SECOND 09/26/2017 KORTNEY ANGELES MD Ot Z3A.27 27 WEEKS GESTATION OF 11/18/2017 CLEVELAND MARVIN MD, Ot O36.8130 DECREASED MOVEMENTS, THIRD TRIMEST 11/18/2017 CLEVELAND MARVIN MD Ot O60.03 LABOR WITHOUT DELIVERY, THIRD TR 11/18/2017 CLEVELAND MARVIN MD Ot Z3A.35 35 WEEKS GESTATION OF Procedures There is no data. Results Test Result Range Complete urinalysis with reflex to culture - 10/23/16 21:41 Urine color determination YELLOW NRG Urine clarity determination SLIGHTLY CLOUDY NRG Urine pH measurement by test strip 8 5-9 Specific gravity of urine by test strip 1.010 1.016-1.022 Urine protein assay by test strip, semi-quantitative NEGATIVE NEGATIVE Urine glucose detection by automated test strip NEGATIVE NEGATIVE Erythrocytes detection in urine sediment by light microscopy 1+ NEGATIVE Urine ketones detection by automated test strip NEGATIVE NEGATIVE Urine nitrite detection by test strip NEGATIVE NEGATIVE Urine total bilirubin detection by test strip NEGATIVE NEGATIVE Urine urobilinogen measurement by automated test strip (mass/volume) NORMAL NORMAL Urine leukocyte esterase detection by dipstick 3+ NEGATIVE Automated urine sediment erythrocyte count by microscopy (number/high power field) [HPF] NRG Automated urine sediment leukocyte count by microscopy (number/high power field) [HPF] NRG Bacteria detection in urine sediment by light microscopy FEW NRG Squamous epithelial cells detection in urine sediment by light microscopy 25-50 NRG Crystals detection in urine sediment by light microscopy NONE NRG Casts detection in urine sediment by light microscopy NONE NRG Mucus detection in urine sediment by light microscopy NEGATIVE NRG Complete urinalysis with reflex to culture YES NRG Bacterial urine culture - 10/23/16 21:41 URINE CULTURE RESULTS <10,000/ML NRG CULTURE, GENITAL - 05/02/17 19:01 CULTURE, GENITAL SEE NOTE NRG CULTURE, GENITAL - 05/10/17 14:58 CULTURE, GENITAL SEE NOTE NRG SUREPATH PAP RFX HPV mRNA E6/E7 - 05/10/17 15:39 CLINICAL INFORMATION: NRG LMP: NRG PREV. PAP: NRG PREV. BX: NRG SOURCE: Cervix NRG STATEMENT OF ADEQUACY: NRG INTERPRETATION/RESULT: NRG MICROSOFT EXCHANGE ADMINISTRATOR: NRG REVIEW MICROS[employer]FT EXCHANGE ADMINISTRATOR: BRIANG CBC - 09/27/17 15:00 WHITE BLOOD CELL COUNT 7.5 Thousand/uL 3.8-10.8 RED BLOOD CELL COUNT 3.79 Million/uL 3.80-5.10 HEMOGLOBIN 12.0 g/dL 11.7-15.5 HEMATOCRIT 35.5 % 35.0-45.0 MCV 93.7 fL 80.0-100.0 MCH 31.7 pg 27.0-33.0 MCHC 33.8 g/dL 32.0-36.0 RDW 13.0 % 11.0-15.0 PLATELET COUNT 207 Thousand/uL 140-400 MPV 10.7 fL 7.5-12.5 ABSOLUTE NEUTROPHILS 5040 cells/uL 5809-9967 ABSOLUTE LYMPHOCYTES 1583 cells/uL 850-3900 ABSOLUTE MONOCYTES 570 cells/uL 200-950 ABSOLUTE EOSINOPHILS 278 cells/uL 15-500 ABSOLUTE BASOPHILS 30 cells/uL 0-200 NEUTROPHILS 67.2 % NRG LYMPHOCYTES 21.1 % NRG MONOCYTES 7.6 % NRG EOSINOPHILS 3.7 % NRG BASOPHILS 0.4 % NRG CULTURE, GROUP B STREP (VAGINAL) - 11/22/17 15:17 STREPTOCOCCUS, GROUP B CULTURE SEE NOTE NRG Complete blood count (CBC) with automated white blood cell (WBC) differential - 12/03/17 10:05 Blood leukocytes automated count (number/volume) 9.2 10*3/uL 4.3-11.0 Blood erythrocytes automated count (number/volume) 3.49 10*6/uL 4.35-5.85 Venous blood hemoglobin measurement (mass/volume) 11.0 g/dL 11.5-16.0 Blood hematocrit (volume fraction) 33 % 35-52 Automated erythrocyte mean corpuscular volume 95 [foz_us] 80-99 Automated erythrocyte mean corpuscular hemoglobin (mass per erythrocyte) 32 pg 25-34 Automated erythrocyte mean corpuscular hemoglobin concentration measurement (mass/volume) 33 g/dL 32-36 Automated erythrocyte distribution width ratio 13.9 % 10.0- 14.5 Automated blood platelet count (count/volume) 109 10*3/uL 130-400 Automated blood platelet mean volume measurement 12.8 [foz_us] 7.4-10.4 Automated blood neutrophils/100 leukocytes 71 % 42-75 Automated blood lymphocytes/100 leukocytes 21 % 12-44 Blood monocytes/100 leukocytes 7 % 0-12 Automated blood eosinophils/100 leukocytes 1 % 0-10 Automated blood basophils/100 leukocytes 0 % 0-10 Blood neutrophils automated count (number/volume) 6.5 10*3 1.8-7.8 Blood lymphocytes automated count (number/volume) 1.9 10*3 1.0-4.0 Blood monocytes automated count (number/volume) 0.6 10*3 0.0- 1.0 Automated eosinophil count 0.1 10*3/uL 0.0-0.3 Automated blood basophil count (count/volume) 0.0 10*3/uL 0.0-0.1 Blood type T Indirect antibody screen panel - 12/03/17 10:05 ABO+Rh group OP NRG Transfusion band number [id number] [facility] Blood group antibody screen NEGATIVE [facility] Complete blood count (CBC) with automated white blood cell (WBC) differential - 12/04/17 05:08 Blood leukocytes automated count (number/volume) 9.8 10*3/uL 4.3-11.0 Blood erythrocytes automated count (number/volume) 3.09 10*6/uL 4.35-5.85 Venous blood hemoglobin measurement (mass/volume) 9.7 g/dL 11.5-16.0 Blood hematocrit (volume fraction) 29 % 35-52 Automated erythrocyte mean corpuscular volume 95 [foz_us] 80-99 Automated erythrocyte mean corpuscular hemoglobin (mass per erythrocyte) 31 pg 25-34 Automated erythrocyte mean corpuscular hemoglobin concentration measurement (mass/volume) 33 g/dL 32-36 Automated erythrocyte distribution width ratio 13.9 % 10.0- 14.5 Automated blood platelet count (count/volume) 112 10*3/uL 130-400 Automated blood platelet mean volume measurement 12.8 [foz_us] 7.4-10.4 Automated blood neutrophils/100 leukocytes 76 % 42-75 Automated blood lymphocytes/100 leukocytes 17 % 12-44 Blood monocytes/100 leukocytes 6 % 0-12 Automated blood eosinophils/100 leukocytes 1 % 0-10 Automated blood basophils/100 leukocytes 0 % 0-10 Blood neutrophils automated count (number/volume) 7.5 10*3 1.8-7.8 Blood lymphocytes automated count (number/volume) 1.6 10*3 1.0-4.0 Blood monocytes automated count (number/volume) 0.6 10*3 0.0- 1.0 Automated eosinophil count 0.1 10*3/uL 0.0-0.3 Automated blood basophil count (count/volume) 0.0 10*3/uL 0.0-0.1 CULTURE, GENITAL - 08/01/18 15:25 CULTURE, GENITAL SEE NOTE NRG Encounters ACCT No. Visit Date/Time Discharge Status Pt. Type Provider Facility Loc./Unit Complaint [id number] 09/26/2018 14:30:00 09/26/2018 23:59:59 CLS Outpatient MARK ZAMORANO [facility] [id number] 08/01/2018 14:30:00 Document Registration [id number] 11/22/2017 14:45:00 Document Registration [id number] 09/27/2017 14:15:00 Document Registration [id number] 05/10/2017 15:00:00 Document Registration [id number] 05/02/2017 17:50:00 Document Registration [id number] 11/17/2017 15:49:00 11/18/2017 10:40:00 DIS Outpatient YON ISABEL, CLEVELAND Wilson [facility] LDRP CONTRACTIONS [id number] 09/18/2017 14:25:00 09/18/2017 16:05:00 DIS Outpatient KORTNEY ANGELES MD [facility] WSo SPOTTING [id number] 08/30/2017 15:42:00 08/30/2017 23:59:59 CLS Outpatient PHANI ISABEL, CARROLL Pastrana [facility] RAD RLE SWELLING AND PAIN [id number] 07/19/2017 09:54:00 07/19/2017 23:59:59 CLS Outpatient CARROLL JERONIMO MD [facility] RAD NORMAL FIRST Z34.00 [id number] 05/17/2017 11:58:00 05/17/2017 23:59:59 CLS Outpatient CARROLL JERONIMO MD [facility] RAD Z34.00 NORMAL [id number] 10/23/2016 21:16:00 10/23/2016 22:17:00 DIS Emergency MARQUIS CROWLEY APRN [facility] ER R SIDE AND BACK PAIN [id number] 07/10/2013 23:24:00 07/11/2013 00:22:00 DIS Emergency [id number] 09/25/2012 17:50:00 09/25/2012 23:59:59 CLS Outpatient [id number] 12/04/2017 07:51:00 Document Registration
[2018-10-23 04:26] LABS: BILIRUBIN,URINE NEGATIVE (NEGATIVE); CLARITY,URINE CLEAR; COLOR,URINE YELLOW; GLUCOSE, URINE (UA) NEGATIVE (NEGATIVE); KETONES,URINE NEGATIVE (NEGATIVE); LEUKOCYTE ESTERASE ,URINE 3+ (NEGATIVE); NITRITE,URINE NEGATIVE (NEGATIVE); PH,URINE 6 (5-9); PROTEIN,URINE NEGATIVE (NEGATIVE); UROBILINOGEN,URINE NORMAL (NORMAL)
--- NOTE | 2018-10-23 04:28 | ED GU-Female ---
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 a&ox4. c/o lower abd & back discomfort that began @ approx 0200 this am. Pt reports she is apporx 19wks 5 days . 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 Nursing Sepsis Screen: No Definite Risk Source: patient Exam Limitations: no limitations History of Present Illness Date Seen by Provider: Oct 23, 2018 Time Seen by Provider: 04:06 Initial Comments Here with report of lower abdominal pain and back pain for the last 3 hours. Patient does report constipation and states that it feels that she needs to have a bowel movement but can't. Apparently did vomit one time today. No reported fever or chills. Denies vaginal bleeding or change in vaginal discharge. Denies dysuria. Denies recent sexual activity. Timing/Duration: this morning, constant Severity/Quality: mild, moderate, aching, cramping Location: suprapubic Radiation: back Activities at Onset: none Prior Genitourinary Problems: none Associated Symptoms: abdominal pain; No dysuria, No fever/chills; lower back pain, nausea/vomiting; No urinary frequency Allergies and Home Medications Allergies Coded Allergies: No Known Drug Allergies (Unverified , 07/10/13) Home Medications Ibuprofen 600 Mg Tablet, 600 MG PO Q6H Prescribed by: CARROLL JERONIMO on 12/05/17 0733 Patient Home Medication List Home Medication List Reviewed: Yes Review of Systems Review of Systems Constitutional: see HPI; No chills, No fever Respiratory: no symptoms reported Cardiovascular: no symptoms reported Gastrointestinal: see HPI Genitourinary: see HPI : Yes Expected Date of Delivery: Mar 14, 2019 LMP: Jun 16, 2018 Musculoskeletal: see HPI Past Toehrls-Zmezsn-Pebxrd Hx Past Med/Social Hx: Reviewed Nursing Past Med/Soc Hx Patient Social History Alcohol Use: Denies Use Number of Drinks Today: AA Alcohol Beverage of Choice: Beer Recreational Drug Use: No Smoking Status: Never a Smoker 2nd Hand Smoke Exposure: No Recent Foreign Travel: No Contact w/Someone Who Travel: No Recent Infectious Disease Expo: No Recent Hopitalizations: No Immunizations Up To Date Tetanus Booster (TDap): Unknown PED Vaccines UTD: Yes Date of Influenza Vaccine: Jan 29, 2013 Seasonal Allergies Seasonal Allergies: Yes Past Medical History Surgeries: No Respiratory: No Cardiac: No Neurological: No Hx : 2 Hx Para: 1 Genitourinary: No Gastrointestinal: No Musculoskeletal: No Endocrine: No HEENT: No Cancer: No Psychosocial: No Integumentary: No Blood Disorders: No Family Medical History Reviewed Nursing Family Hx Diabetes mellitus 19 FATHER FH: lupus Grandparents (Paternal Grandmother) Hypertension 19 FATHER No Pertinent Family Hx Physical Exam Vital Signs Vital Signs - First Documented 10/23/18 04:03 Temp 97.8 Pulse 79 Resp 16 B/P (MAP) 100/70 (80) Pulse Ox 97 O2 Delivery Room Air Capillary Refill : Less Than 3 Seconds Height, Weight, BMI Height: 5'4.00" Weight: 120lbs. 4.0oz. 54.034006fx; 27.7 BMI Method:Stated General Appearance: WD/WN, no apparent distress Neck: full range of motion, supple Cardiovascular: regular rate, rhythm, no murmur Respiratory: lungs clear, normal breath sounds Gastrointestinal: soft, tenderness (mild suprapubic) Back: normal inspection, no CVA tenderness, no vertebral tenderness Extremities: non-tender, normal inspection, no pedal edema, no calf tenderness Neurologic/Psychiatric: alert, oriented x 3 Skin: normal color, warm/dry Progress/Results/Core Measures Suspected Sepsis Recent Fever Within 48 Hours: No Infection Criteria Present: None New/Unexplained Altered Menta: No Sepsis Screen: No Definite Risk SIRS Temperature: Pulse: 79 Respiratory Rate: 16 Blood Pressure 100 /70 Mean: 80 Results/Orders Lab Results Laboratory Tests Test 10/23/18 04:20 Range/Units Urine Color YELLOW Urine Clarity CLEAR Urine pH 6 5-9 Urine Specific [place] 1.020 1.016-1.022 Urine Protein NEGATIVE NEGATIVE Urine Glucose (UA) NEGATIVE NEGATIVE Urine Ketones NEGATIVE NEGATIVE Urine Nitrite NEGATIVE NEGATIVE Urine Bilirubin NEGATIVE NEGATIVE Urine Urobilinogen NORMAL NORMAL MG/DL Urine Leukocyte Esterase 3+ H NEGATIVE Urine RBC (Auto) NEGATIVE NEGATIVE Urine RBC NONE /HPF Urine WBC 10-25 H /HPF Urine Squamous Epithelial Cells 5-10 /HPF Urine Crystals NONE /LPF Urine Bacteria FEW H /HPF Urine Casts NONE /LPF Urine Mucus NEGATIVE /LPF Urine Culture Indicated YES My Orders Orders - CHRISTOPHE BLACK MD Ua Culture If Indicated (10/23/18 04:02) Urine Culture (10/23/18 04:20) Cephalexin Capsule (Keflex Capsule) (10/23/18 04:43) Acetaminophen Tablet (Tylenol Tablet) (10/23/18 04:51) Vital Signs/I&O 10/23/18 04:03 Temp 97.8 Pulse 79 Resp 16 B/P (MAP) 100/70 (80) Pulse Ox 97 O2 Delivery Room Air Capillary Refill : Less Than 3 Seconds Blood Pressure Mean: 80 Progress Note : Progress Note Seen and evaluated. Bedside ultrasound performed and showed positive movement with heart tone of approximately 135. 0455: UTI noted. Keflex 500 mg by mouth. Tylenol 1 g by mouth. Discharged home with return precautions. Patient verbalize understanding instructions and agreement with plan. Departure Impression Primary Impression: Abdominal pain during Qualified Codes: O26.892 - Other specified related conditions, second trimester; R10.9 - Unspecified abdominal pain Additional Impressions: Urinary tract infection Qualified Codes: N30.00 - Acute cystitis without hematuria Constipation Qualified Codes: K59.00 - Constipation, unspecified Disposition: 01 HOME, SELF-CARE Condition: Improved Departure-Patient Inst. Decision time for Depature: 04:59 Referrals: CARROLL JERONIMO MD (PCP/Family) Primary Care Physician Patient Instructions: Constipation, Adult (DC), Urinary Tract Infection, Adult (DC) Add. Discharge Instructions: All discharge instructions reviewed with patient and/or family. Voiced understanding. You may take Tylenol 1000 mg every 6-8 hours as needed for pain. You may take MiraLAX or the generic one capful up to twice daily as needed for constipation. You may do this for 3 days and then decrease to one half capful twice daily as needed to keep stools a normal range. You may increase or decrease the dose to keep stools soft. Increasing fiber in your diet will also help significantly. Follow-up with your in a few days for recheck. Return for worse pain, fever, vomiting, vaginal bleeding or discharge or other concerns as needed. Take medications as directed. Scripts Cephalexin (Cephalexin) 500 Mg Capsule 500 MG PO BID, #6 CAP 0 Refills Prov: CHRISTOPHE BLACK MD 10/23/18 Copy Copies To 1: CARROLL JERONIMO MD, TIMOTHY D MD Oct 23, 2018 04:28
[2018-10-23 04:34] LABS: BACTERIA,URINE FEW /HPF
[2018-10-23] MEDS ORDERED: CEPHALEXIN 250 MG (KEFLEX) CAP PO STA (04:43)
[2018-10-23] MEDS ORDERED: ACETAMINOPHEN 500 MG TAB (TYLENOL) PO STA (04:51)
[2018-10-23] MEDS ORDERED: CEPH500C PO (05:02)
[2018-10-23 05:05] VITALS: BP 106/70
== END 2018-10-23 05:05 | disposition home or self-care (01) ==
LOC: EDUNIT# 03:57 → ER 03:58
DX: O23.42 Unspecified infection of urinary tract in pregnancy, second trimester (principal); O99.612 Diseases of the digestive system complicating pregnancy, second trimester; K59.00 Constipation, unspecified; Z82.49 Family history of ischemic heart disease and other diseases of the circulatory system; Z3A.19 19 weeks gestation of pregnancy
CPT/HCPCS: 81000; 87088

== ENCOUNTER 2018-11-27 13:16 | Outpatient (CLI) | payer MEDICAID ==
[2018-11-27] VITALS (8 sets, daily range): BP systolic 96–110; BP diastolic 54–75
[~2018-11-27] VITALS: Ht 162.6 cm; Wt 56.7 kg
[~2018-11-27 13:16] MED LIST changes: +CEPH500C PO
--- NOTE | 2018-11-27 13:16 | NUR ---
LYLY BARNARD presented to unit via AMBULATION from HOME, , with c/o PRE-TERM LABOR. LYLY BARNARD weighed, gowned, voided, and to bed. EFHM and TOCO applied, VS taken. LYLY BARNARD oriented to bed controls, call light, TV, heat, and A/C controls.
--- NOTE | 2018-11-27 14:04 | NUR ---
DR JERONIMO CALLED, UPDATE ABOUT PT GIVEN, NEW ORDERS RECEIVED, PLAN OF CARE REVIEWED WITH PT.
[2018-11-27] MEDS ORDERED: LACTATED RINGERS 1,000 ML IV SCH ×2 (14:15→15:15)
[2018-11-27 14:34] LABS: BILIRUBIN,URINE NEGATIVE (NEGATIVE); CLARITY,URINE CLEAR; COLOR,URINE YELLOW; GLUCOSE, URINE (UA) NEGATIVE (NEGATIVE); KETONES,URINE NEGATIVE (NEGATIVE); LEUKOCYTE ESTERASE ,URINE 3+ (NEGATIVE); NITRITE,URINE NEGATIVE (NEGATIVE); PH,URINE 6.5 (5-9); PROTEIN,URINE NEGATIVE (NEGATIVE); UROBILINOGEN,URINE NORMAL (NORMAL)
[2018-11-27] MEDS ORDERED: PREN1TAB79 PO (14:35)
[2018-11-27 15:00] LABS: BACTERIA,URINE FEW /HPF; WBC,URINE 50-100 /HPF
--- NOTE | 2018-11-27 15:14 | NUR ---
[id number] SONO AT BEDSIDE COMPLETING SONO.
--- NOTE | 2018-11-27 15:53 | Diagnostic Imaging Report ---
INDICATION: Pre-term labor and dilated cervix. TECHNIQUE: Multiple real-time grayscale images were obtained over the gravid uterus. COMPARISON: None FINDINGS: There is a single live fetus in a cephalic presentation. heart rate was recorded at 147 beats per minute. Placenta is posterior. Amniotic fluid index is 20.2 cm. Cervical length is 3.6 cm. No bulging membranes or significant cervical dilatation is seen. Biometrical measurements are as follows: Biparietal 6.16 cm, age 25 weeks 1 days. Head circumference 22.63 cm, age 24 weeks 5 days. Abdominal circumference 19.22 cm, age 24 weeks 0 days. Femur length 4.76 cm, age 26 weeks 0 days. Sonographic estimate age: 25 weeks 0 days. Sonographic estimated date of delivery: 03/12/2019. Estimated Weight: 736 gm (+/- 107 gm). LMP percentile: 44%. heart rate: 147 beats per minute. number: 1 of 1. IMPRESSION: Single live IUP of 25 weeks 0 days gestational age. Estimated date of confinement sonographically is 03/12/2019. No complicating features are identified. Dictated by: Dictated on workstation # [id number]
--- NOTE | 2018-11-27 16:07 | NUR ---
PT REPORTS STILL FEELING CONTRACTIONS, DENIES PAIN A THIS TIME, WILL MONITOR CLOSELY, FAMILY AT BEDSIDE.
[2018-11-27] MEDS ORDERED: ceFAZolin INJECTION 1,000 MG ONE (16:14)
[2018-11-27] MEDS ORDERED: TERBUTALINE INJ 1 MG/ML (BRETHINE) AMP ONE (16:14)
[2018-11-27] MEDS ORDERED: WATER (STERILE) FOR INJECTION 10 ML ONE (16:14)
[2018-11-27] MEDS ORDERED: TERBUTALINE INJ 1 MG/ML (BRETHINE) AMP SC ONE (16:15)
[2018-11-27] MEDS ORDERED: ceFAZolin INJECTION 1,000 MG in WATER (STERILE) FOR INJECTION 10 ML IV ONE (16:15)
[2018-11-27 16:49] LABS: BASOPHILS % (AUTO) 0 % (0-10); EOSINOPHILS # (AUTO) 0.1 10^3/uL (0.0-0.3); EOSINOPHILS % (AUTO) 1 % (0-10); HEMATOCRIT 35 % (35-52); HEMOGLOBIN 11.4 G/DL (11.5-16.0); LYMPHOCYTES # (AUTO) 2.3 X 10^3 (1.0-4.0); LYMPHOCYTES % (AUTO) 28 % (12-44); MEAN CORPUSCULAR HEMOGLOBIN 31 PG (25-34); MEAN CORPUSCULAR HGB CONC 33 G/DL (32-36); MEAN CORPUSCULAR VOLUME 93 FL (80-99); MEAN PLATELET VOLUME 10.2 FL (7.4-10.4); MONOCYTES # (AUTO) 0.4 X 10^3 (0.0-1.0); MONOCYTES % (AUTO) 5 % (0-12); NEUTROPHILS # (AUTO) 5.4 X 10^3 (1.8-7.8); NEUTROPHILS % (AUTO) 66 % (42-75); PLATELET COUNT 193 10^3/uL (130-400); RED CELL DISTRIBUTION WIDTH 13.7 % (10.0-14.5); WHITE BLOOD COUNT 8.3 10^3/uL (4.3-11.0)
--- NOTE | 2018-11-27 17:58 | NUR ---
DR JERONIMO HERE, NEW ORDERS RECEIVED.
[2018-11-27] MEDS ORDERED: CEPH-506 PO ×2 (18:23)
--- NOTE | 2018-11-27 18:38 | NUR ---
IV DC'D, D/C INSTRUCTIONS EXPLAINED TO PT/FAMILY, NO QUESTIONS NOTED, SIGNED, PT VERBALIZES UNDERSTANDING OF STRICT BEDREST AND TO RETURN TO DR JERONIMO'S OFFICE TOMORROW FOR FOLLOW UP APPOINTMENT. PRESCRIPTION CALLED TO [facility].
--- NOTE | 2018-11-27 18:40 | NUR ---
PT AMBULATED OFF UNIT WITH PTS MOTHER AT SIDE, NO DISTRESS NOTED, PT VERBALIZES UNDERSTANDING OF FOLLOW UP CARE.
== END 2018-11-27 18:40 | disposition home or self-care (01) ==
LOC: WSo 13:16 → LDRP 13:16 → WSo 18:40
PROVIDERS: ATTEND Family Medicine
DX: O60.02 Preterm labor without delivery, second trimester (principal); O34.32 Maternal care for cervical incompetence, second trimester; Z3A.25 25 weeks gestation of pregnancy
CPT/HCPCS: 36415; 76805; 81000; 85025; 87088; 96361; 96372; 96374; 99214

== ENCOUNTER 2018-12-08 21:11 | Outpatient (CLI) | payer MEDICAID ==
[~2018-12-08] VITALS: Ht 162.6 cm; Wt 56.7 kg
[~2018-12-08 21:11] MED LIST changes: +CEPH-506 PO; +PREN1TAB79 PO
--- NOTE | 2018-12-08 21:16 | NUR ---
LYLY BARNARD presented to unit via ambulation from ED, accompanied by family, with c/o CRAMPING,CONTRACTIONS. LYLY BARNARD weighed, gowned, voided, and to bed. EFHM and TOCO applied, VS taken. LYLY BARNARD oriented to bed controls, call light, TV, heat, and A/C controls.
[2018-12-08 21:25] VITALS: BP 102/67
[2018-12-08 21:38] LABS: BILIRUBIN,URINE NEGATIVE (NEGATIVE); COLOR,URINE YELLOW; GLUCOSE, URINE (UA) NEGATIVE (NEGATIVE); KETONES,URINE NEGATIVE (NEGATIVE); LEUKOCYTE ESTERASE ,URINE 3+ (NEGATIVE); NITRITE,URINE NEGATIVE (NEGATIVE); PH,URINE 6 (5-9); PROTEIN,URINE NEGATIVE (NEGATIVE); UROBILINOGEN,URINE NORMAL (NORMAL)
[2018-12-08] MEDS ORDERED: HYDR275A SQ ×2 (21:39)
[2018-12-08 21:44] LABS: CLARITY,URINE SL CLOUDY
[2018-12-08 21:46] LABS: BACTERIA,URINE MODERATE /HPF; WBC,URINE 25-50 /HPF
--- NOTE | 2018-12-08 21:56 | NUR ---
notified of pt's arrival and complaint. tracing, exam and u/a results reported. new orders received.
[2018-12-08] MEDS ORDERED: NITROFURANTOIN 100 MG (MACROBID) CAPSULE PO ONE (22:00)
[2018-12-08] MEDS ORDERED: hydrOXYzine (VISTARIL/ATARAX) 25 MG capsule/tablet PO ONE (22:00)
--- NOTE | 2018-12-08 22:13 | NUR ---
Macrobid 100mg bid x7 days called into [facility] pharmacy
[2018-12-08] MEDS ORDERED: NITR-65 PO ×2 (22:42)
--- NOTE | 2018-12-08 22:50 | NUR ---
Pt reports that she is feeling a lot better. discharge instructions verbalized. pt verbalized understanding, pt dc'd home with family member at side.
--- NOTE | 2018-12-10 16:13 | Physician Query-Final Dx ---
Clinic Account Progress/Dx Physician Query: Please give diagnosis Please be sure to include the gestational weeks Date of Service Dec 08, 2018 at 21:11 JACOBO CORDOVA Dec 10, 2018 16:13
== END 2018-12-08 22:50 ==
LOC: WSo 21:11 → LDRP 21:12 → WSo 22:50
PROVIDERS: ATTEND Family Medicine
DX: O62.9 Abnormality of forces of labor, unspecified (principal); Z3A.26 26 weeks gestation of pregnancy
CPT/HCPCS: 81000; 87088; 99213

== ENCOUNTER 2018-12-10 22:14 | Outpatient (CLI) | payer MEDICAID ==
[~2018-12-10] VITALS: Ht 162.6 cm; Wt 56.4 kg
[~2018-12-10 22:14] MED LIST changes: +HYDR275A SQ; +NITR-65 PO
[2018-12-10 22:30] VITALS: BP 107/70
--- NOTE | 2018-12-10 23:18 | NUR ---
Discharge instructions discussed with pt and pt's s.o. No questions voiced. Signature sheet signed, placed on chart. Offered wheelchair, denied per pt. Pt ambulating off unit at time to private vehicle with s.o. at side. No signs of distress noted.
--- NOTE | 2018-12-11 08:45 | Physician Query-Final Dx ---
JACOBO CORDOVA 12/11/18 0845: Clinic Account Progress/Dx Physician Query: Please give diagnosis Please remember to add the weeks of gestation in final dx Date of Service Dec 10, 2018 at 22:14 PITA CALLEJAS 12/13/18 1635: JACOBO CORDOVA Dec 11, 2018 08:45 PITA CALLEJAS Dec 13, 2018 16:35
--- NOTE | 2018-12-20 00:04 | Physician Query-Final Dx ---
MODESTO MENDOZA 12/20/18 0004: Final Diagnosis Give Final Diagnosis Please give Final Diagnosis Please give Final Diagnosis and add weeks of gestation CARROLL JERONIMO MD 12/25/18 1410: Final Diagnosis Give Final Diagnosis 1. IUP at 27 weeks 2. Vaginal spotting blood- resolved MODESTO MENDOZA Dec 20, 2018 00:04 CARROLL JERONIMO MD Dec 25, 2018 14:10
== END 2018-12-10 23:18 | disposition home or self-care (01) ==
LOC: LDRP 22:14 → WSo 22:14
PROVIDERS: ATTEND Family Medicine
DX: Z34.92 Encounter for supervision of normal pregnancy, unspecified, second trimester (principal); Z3A.27 27 weeks gestation of pregnancy
CPT/HCPCS: 99212

== ENCOUNTER 2019-02-09 08:42 | Outpatient (CLI) | payer MEDICAID ==
[~2019-02-09] VITALS: Ht 162.6 cm; Wt 61.0 kg
[2019-02-09 08:49] VITALS: BP 114/73
--- NOTE | 2019-02-09 08:49 | NUR ---
LYLY BARNARD presented to unit from ED, accompanied by Mother, with c/o CONTRACTIONS. LYLY BARNARD weighed, gowned, voided, and to bed. EFHM and TOCO applied, VS taken. LYLY BARNARD oriented to bed controls, call light, TV, heat, and A/C controls.
[2019-02-09 09:18] LABS: BILIRUBIN,URINE NEGATIVE (NEGATIVE); CLARITY,URINE CLEAR; COLOR,URINE YELLOW; GLUCOSE, URINE (UA) NEGATIVE (NEGATIVE); KETONES,URINE NEGATIVE (NEGATIVE); LEUKOCYTE ESTERASE ,URINE 3+ (NEGATIVE); NITRITE,URINE NEGATIVE (NEGATIVE); PH,URINE 7 (5-9); PROTEIN,URINE NEGATIVE (NEGATIVE); UROBILINOGEN,URINE NORMAL (NORMAL)
[2019-02-09 09:26] LABS: BACTERIA,URINE FEW /HPF
--- NOTE | 2019-02-09 09:45 | NUR ---
Dr. Ruiz notified of patient's arrival, complaints, exam, labs, and EFM tracing. New orders received.
[2019-02-09] MEDS ORDERED: BETAMETHASONE ACE/NA PHOS 6 MG/ML (CELESTONE SOLUSPAN) ONE (09:48)
[2019-02-09] MEDS ORDERED: cefTRIAXone 1,000 MG/2.86 ml vial (IM ONLY) ONE (09:48)
[2019-02-09] MEDS ORDERED: D5 LR IV SOLUTION 1,000 ML IV ONE (09:49)
[2019-02-09] MEDS ORDERED: TERBUTALINE INJ 1 MG/ML (BRETHINE) AMP ONE (09:49)
[2019-02-09] MEDS ORDERED: WATER (STERILE) FOR INJECTION 10 ML ONE (09:54)
[2019-02-09] MEDS ORDERED: cefTRIAXone FOR IV USE 1,000 MG in WATER (STERILE) FOR INJECTION 10 ML IV ONE (10:00)
[2019-02-09] MEDS ORDERED: D5 LR IV SOLUTION 1,000 ML IV SCH (10:00)
[2019-02-09] MEDS: TERBUTALINE INJ 1 MG/ML (BRETHINE) AMP SC PRN ×2 (10:11→11:33)
[2019-02-09] MEDS ORDERED: BETAMETHASONE ACE/NA PHOS 6 MG/ML (CELESTONE SOLUSPAN) IM SCH (10:30)
--- NOTE | 2019-02-09 13:41 | NUR ---
Dr. Ruiz updated on patient's status. New orders received.
[2019-02-09] MEDS ORDERED: LORA10TA76 PO ×2 (14:01)
[2019-02-09] MEDS ORDERED: LANS15CA PO ×2 (14:01)
[2019-02-09] MEDS ORDERED: CEPH250T PO ×2 (14:03)
--- NOTE | 2019-02-09 14:03 | NUR ---
IV DC'd by Harjinder Ornelas RN. tip intact.
--- NOTE | 2019-02-09 14:15 | NUR ---
Discharge instructions and medications reviewed with patient both written and verbally by Harjinder Ornelas RN. Patient verbalizes understanding and questions answered. Prescription called to [facility] per patient's request.
--- NOTE | 2019-02-09 14:20 | NUR ---
Patient discharged at this time and ambulated from the unit accompanied by her Mother. No signs or symptoms of distress noted.
--- NOTE | 2019-02-11 08:37 | Physician Query-Final Dx ---
Clinic Account Progress/Dx Physician Query: Please give diagnosis Please include # weeks of gestation Date of Service Feb 09, 2019 at 08:42 JACOBO CORDOVA Feb 11, 2019 08:37
== END 2019-02-09 14:20 | disposition home or self-care (01) ==
LOC: WSo 08:42 → LDRP 08:42 → WSo 14:20
PROVIDERS: ATTEND Family Medicine
DX: O62.8 Other abnormalities of forces of labor (principal); Z3A.35 35 weeks gestation of pregnancy
CPT/HCPCS: 81000; 87088; 96361; 96372; 96374; 99213

== ENCOUNTER 2019-02-10 10:29 | Outpatient (CLI) | payer MEDICAID ==
[~2019-02-10 10:29] MED LIST changes: +CEPH250T PO; +LANS15CA PO; +LORA10TA76 PO
--- NOTE | 2019-02-10 10:29 | NUR ---
LYLY BARNARD presented to unit from home, accompanied by family, with c/o BETAMETHASONE INJECTION. LYLY BARNARD weighed, gowned, voided, and to bed. EFHM and TOCO applied, VS taken. LYLY BARNARD oriented to bed controls, call light, TV, heat, and A/C controls.
[2019-02-10] MEDS ORDERED: BETAMETHASONE ACE/NA PHOS 6 MG/ML (CELESTONE SOLUSPAN) ONE (10:33)
--- NOTE | 2019-02-10 10:36 | NUR ---
Betamethasone given in patient's right dorsogluteal area, see intervention/EMAR.
--- NOTE | 2019-02-10 10:37 | NUR ---
Patient discharged at this time and ambulated from the unit accompanied by family. No signs or symptoms of distress noted.
[2019-02-10] MEDS ORDERED: BETAMETHASONE ACE/NA PHOS 6 MG/ML (CELESTONE SOLUSPAN) IM SCH (10:45)
== END 2019-02-10 10:37 | disposition home or self-care (01) ==
LOC: WSo 10:29
PROVIDERS: ATTEND Family Medicine
DX: Z34.93 Encounter for supervision of normal pregnancy, unspecified, third trimester (principal); Z3A.35 35 weeks gestation of pregnancy
CPT/HCPCS: 96372

== ENCOUNTER 2019-02-19 11:15 | Inpatient (IN) | payer MEDICAID ==
[2019-02-19] VITALS (34 sets, daily range): BP systolic 94–133; BP diastolic 51–91
[~2019-02-19] VITALS: Ht 162.6 cm; Wt 61.4 kg
--- NOTE | 2019-02-19 11:13 | NUR ---
LYLY BARNARD presented to unit via AMBULATORY from OFFICE, FOR LABOR. LYLY BARNARD weighed, gowned, voided, and to bed. EFHM and TOCO applied, VS taken. LYLY BARNARD oriented to bed controls, call light, TV, heat, and A/C controls.
--- NOTE | 2019-02-19 11:43 | NUR ---
DR. JERONIMO NOTIFIED OF PT'S ARRIVAL, NEW ORDERS RECEIVED. PT WAS SEEN AND CHECKED AT [facility] AND WAS TOLD TO COME OVER FOR LABOR, DR. JERONIMO WAS NOTIFIED BY [facility].
[2019-02-19] MEDS ORDERED: D5 LR IV SOLUTION 1,000 ML IV SCH (11:46)
[2019-02-19] MEDS ORDERED: MINERAL OIL CONCENTRATE 99.9% 15 ML UDC TOP PRN (12:00)
[2019-02-19 12:02] LABS: BASOPHILS % (AUTO) 0 % (0-10); EOSINOPHILS # (AUTO) 0.1 10^3/uL (0.0-0.3); EOSINOPHILS % (AUTO) 1 % (0-10); HEMATOCRIT 35 % (35-52); HEMOGLOBIN 11.3 G/DL (11.5-16.0); LYMPHOCYTES # (AUTO) 1.9 X 10^3 (1.0-4.0); LYMPHOCYTES % (AUTO) 19 % (12-44); MEAN CORPUSCULAR HEMOGLOBIN 29 PG (25-34); MEAN CORPUSCULAR HGB CONC 33 G/DL (32-36); MEAN CORPUSCULAR VOLUME 89 FL (80-99); MEAN PLATELET VOLUME 11.1 FL (7.4-10.4); MONOCYTES # (AUTO) 0.6 X 10^3 (0.0-1.0); MONOCYTES % (AUTO) 6 % (0-12); NEUTROPHILS # (AUTO) 7.5 X 10^3 (1.8-7.8); NEUTROPHILS % (AUTO) 74 % (42-75); PLATELET COUNT 191 10^3/uL (130-400); RED CELL DISTRIBUTION WIDTH 13.6 % (10.0-14.5); WHITE BLOOD COUNT 10.2 10^3/uL (4.3-11.0)
[2019-02-19] MEDS ORDERED: MEPIVACAINE (CARBOCAINE) 2% 50 ML VIAL ONE (12:14)
[2019-02-19] MEDS ORDERED: OXYTOCIN/NORMAL SALINE 500 ML IV SCH ×2 (13:00→17:05)
--- NOTE | 2019-02-19 13:01 | History & Physical-OB ---
OB - Chief Complaint & HPI Date/Time Date of Admission: Date of Admission: Feb 19, 2019 at 11:15 Date seen by a Provider: Feb 19, 2019 Time Seen by a Provider: 12:45 Chief Complaint/History OB-Reason for Admission/Chief: Onset of Labor Hx : 2 Hx Para: 1 Expected Date of Delivery: Mar 14, 2019 Gestational Age in Weeks: 36 Gestational Age in Days: 5 Admission Nurse Assessment Rev: Yes History of Labs GBS negative Allergies and Home Medications Allergies Coded Allergies: adhesive tape (Verified Allergy, Unknown, Rash, 02/09/19) calcium carbonate (Verified Allergy, Unknown, Rash, 02/09/19) Home Medications Hydroxyprogesterone Caproat/Pf 275 Mg/1.1 Ml Auto.injct, 275 MG SQ WEEK, (Reported) Lansoprazole 15 Mg Capsule.dr, 15 MG PO DAILY, (Reported) Loratadine 10 Mg Tablet, 10 MG PO DAILY, (Reported) Vit W-Ca,Fe,FA(<1 mg) 1 Each Tablet, 1 TAB PO DAILY, (Reported) Patient Home Medication List Home Medication List Reviewed: Yes OB - History Hx of Present Care: Yes Ultrasounds: Normal mid trimester US Obstetrical Complications: Other ( labor) Medical Complications: None Patient Past Medical History No chronic medical problems Social History/Family History HIV/AIDS: No Sexually Transmitted Disease: Yes (hx: chlamydia and gonorrhea) Alcohol Use: Denies Use Recreational Drug Use: No 2nd Hand Smoke Exposure: No Immunizations Hepatitis A: Yes Hepatitis B: Yes Tetanus Booster (TDap): Unknown Date of Influenza Vaccine: Jan 30, 2019 OB - Admission Exam Physical Exam Vitals: Vital Signs 02/19/19 02/19/19 11:21 12:35 Temp 37.3 Pulse 89 Resp 18 B/P (MAP) 108/78 (88) O2 Delivery Room Air HEENT: Moist Membranes Lungs: Clear Abdomen: Gravid Cervical Dilatation: 5cm Effacement: 75% Station: -3 Membranes: Intact Heart Rate: 140's Accelerations: Accelerations Present Short Term Variability: Present Care Home Variability: Average (6-25) Contractions on Admission: < 5 Minutes Apart Intensity: Mild Labs Laboratory Tests Test 02/19/19 11:30 Range/Units White Blood Count 10.2 4.3-11.0 10^3/uL Red Blood Count 3.90 L 4.35-5.85 10^6/uL Hemoglobin 11.3 L 11.5-16.0 G/DL Hematocrit 35 35-52 % Mean Corpuscular Volume 89 80-99 FL Mean Corpuscular Hemoglobin 29 25-34 PG Mean Corpuscular Hemoglobin Concent 33 32-36 G/DL Red Cell Distribution Width 13.6 10.0-14.5 % Platelet Count 191 130-400 10^3/uL Mean Platelet Volume 11.1 H 7.4-10.4 FL Neutrophils (%) (Auto) 74 42-75 % Lymphocytes (%) (Auto) 19 12-44 % Monocytes (%) (Auto) 6 0-12 % Eosinophils (%) (Auto) 1 0-10 % Basophils (%) (Auto) 0 0-10 % Neutrophils # (Auto) 7.5 1.8-7.8 X 10^3 Lymphocytes # (Auto) 1.9 1.0-4.0 X 10^3 Monocytes # (Auto) 0.6 0.0-1.0 X 10^3 Eosinophils # (Auto) 0.1 0.0-0.3 10^3/uL Basophils # (Auto) 0.0 0.0-0.1 10^3/uL OB - Assessment/Plan/Diagnosis Assessment Assessment: active labor (at 36w5d) Admission Dx 1. IUP at 36w5d Admission Status: Inpatient Order (span 2 midnights) Reason for Inpatient Admission: L&D Plan Plan: Expectant Management, Other (L&D) Other Plan -epidural -pitocin as needed CARROLL JERONIMO MD Feb 19, 2019 13:01
[2019-02-19] MEDS ORDERED: CATHETER FLUSH 10 ML SYR IV SCH ×2 (14:00→22:00)
[2019-02-19] MEDS ORDERED: SUFENTA 0.6MCG/ML BUPIVA 0.125 100 ML ONE (14:26)
--- NOTE | 2019-02-19 14:30 | NUR ---
1430 Jonathan SANON, SRNA WITH [facility] CRNA here for epidural placement. Procedure explained, consent reviewed and signed by anesthesia. Questions answered to patient's satisfaction. Time out taken to verify correct patient/procedure. 1433 Patient up to side of bed, assisted into sitting position. 1435 Betadine prep done x3 and sterile drape applied. 1438 Local done, see anesthesia record. 1445 Test dose given, see anesthesia record for drug and dosage. Epidural catheter secured in place. Epidural placement complete. 1451 Assisted back into bed, monitors adjusted. Epidural dosed, see anesthesia record. Epidural of Sufenta/Bupvicaine @12cc/hr stated per pump. Patient tolerated procedure well.
[2019-02-19] MEDS ORDERED: BUPIVACAINE 0.25% 30 ML (SENSORCAINE) VIAL ONE (14:53)
[2019-02-19] MEDS ORDERED: fentaNYL INJECTION 100 MCG/2 ML AMP ONE (14:53)
[2019-02-19] MEDS ORDERED: LACTATED RINGERS 1,000 ML IV SCH (15:42)
[2019-02-19] MEDS ORDERED: ONDANSETRON 4 MG/2 ML (SDV) Z0FRAN IV PRN (15:45)
[2019-02-19] MEDS ORDERED: EPIDURAL (SUFENTA 0.6MCG/ML BUPIVA 0.125%) 100 ML BAG EPI PRN (15:45)
[2019-02-19] MEDS ORDERED: METOCLOPRAMIDE INJ 10 MG/2 ML (REGLAN) IV PRN (15:45)
[2019-02-19] MEDS ORDERED: NALOXONE 0.4 MG/ML 1 ML (NARCAN) VIAL IV PRN ×2 (15:45)
[2019-02-19] MEDS ORDERED: diphenhydrAMINE 50 MG/ML INJ (BENADRYL) IV PRN (15:45)
--- NOTE | 2019-02-19 17:11 | OB Labor & Delivery Record ---
L&D History Date of Service Date of Service: Feb 19, 2019 History Expected Date of Delivery: Mar 14, 2019 Gestational Age in Weeks: 36 Hx : 2 Hx Para: 2 Complications Events: Labor <37 wks Operative Indications (Cesarea: N/A-Vaginal Delivery Intrapartal Events: None Other Complications none L&D Stage1 Stage One Onset of Labor - Date: Feb 19, 2019 Onset of Labor - Time: 12:45 Monitors and Tracing Monitor Mode: Internal Heart Rate: 140 Monitor Accelerations: Uniform Monitor Decelerations: Variable Station: -2 Nursing Home Variability: Average (6-10) Short Term Variability: Present Presentation: Vertex Vital Signs VS - Last 72 Hours, by Label 02/19/19 02/19/19 02/19/19 02/19/19 11:21 12:01 12:35 13:23 Temp 37.7 37.3 37.3 Pulse 89 89 Resp 18 18 B/P (MAP) 108/78 (88) Pulse Ox 98 O2 Delivery Room Air Room Air 02/19/19 02/19/19 02/19/19 02/19/19 13:42 14:03 14:13 14:28 Temp 37.2 Pulse 80 82 89 90 Resp 18 18 18 18 B/P (MAP) 102/68 (79) 104/68 (80) 118/90 (99) 111/76 (88) O2 Delivery Room Air Room Air Room Air Room Air 02/19/19 02/19/19 02/19/19 02/19/19 14:34 14:37 14:40 14:43 Pulse 93 97 101 91 Resp 18 18 18 18 B/P (MAP) 127/77 (94) 132/91 (105) 133/83 (100) Pulse Ox 98 96 97 O2 Delivery Room Air Room Air Room Air Room Air 02/19/19 02/19/19 02/19/19 02/19/19 14:46 14:49 14:53 14:56 Temp 37.0 Pulse 83 93 96 104 Resp 18 18 18 18 B/P (MAP) 125/79 (94) 118/76 (90) 112/71 (85) 101/68 (79) Pulse Ox 96 89 97 O2 Delivery Room Air Room Air Room Air Room Air 02/19/19 02/19/19 02/19/19 02/19/19 14:59 15:02 15:10 15:14 Pulse 92 94 101 79 Resp 18 18 18 18 B/P (MAP) 97/51 (66) 127/61 (83) 94/68 (77) 103/71 (82) Pulse Ox 98 98 98 O2 Delivery Room Air Room Air Room Air Room Air 02/19/19 02/19/19 02/19/19 02/19/19 15:20 15:25 15:29 15:33 Pulse 94 83 93 68 Resp 18 18 18 18 B/P (MAP) 109/71 (84) 100/63 (75) 103/69 (80) 108/62 (77) Pulse Ox 98 97 97 O2 Delivery Room Air Room Air Room Air Room Air 02/19/19 02/19/19 02/19/19 02/19/19 15:37 15:40 15:44 16:00 Temp 36.7 Pulse 83 81 105 Resp 18 18 18 B/P (MAP) 104/73 (83) 115/72 (86) 102/58 (73) Pulse Ox 97 97 99 O2 Delivery Room Air Room Air Room Air 02/19/19 02/19/19 16:07 16:14 Temp 37.0 Pulse 102 Resp 18 B/P (MAP) 124/75 (91) O2 Delivery Room Air Signs of Distress by FHT Signs of Distress no Rupture of Membranes Spontaneous Ruture of Membrane: No Amniotic Membrane Rupture Time: 1238 Amniotic Membrane Fluid Desc.: Clear Vaginal Bleeding Description: None Induction/Anesthesia Epidural Cath Placement - Time: 1444 L&D Stage2 Stage Two Stage II Date: Feb 19, 2019 Stage II Time: 16:13 Monitors and Tracing Monitor Mode: Internal Heart Rate: 140 Monitor Accelerations: Uniform Monitor Decelerations: Variable Nursing Home Variability: Average (6-10) Short Term Variability: Present Position: Left Occiput Transverse Presentation: Vertex Signs of Distress by FHT Signs of Distress no Cord Descript/Complications Cord Vessel Description: 3 Vessels Delivery Type Infant Delivery Method: Spontaneous Vaginal Anterior Shoulder: Left Episiotomy/Perineal Laceration Laceraction(s)/Extensions: No Condition of Delivery 1 minute Comment: 8 5 minute Comment: 9 Condition of Infant Condition of : Living Exam: No Observed Abnormalities Resuscitation Resuscitation: N/A - Spontaneous Resp L&D Stage3 Stage Three Stage III Date: Feb 19, 2019 Stage III Time: 16:18 Pictocin Pitocin Administration mu/min: 4 Pitocin ml/hr: 4 Pitocin Administration Comment: 1401 PITOCIN INCREASED. Placenta Delivery Placenta Delivery: Spontaneous Delivery Summary Summary Estimated blood loss (mL): 100 Condition of Delivery Examined: Cervix Examined Post Hemorrhage: No Intervention Required none CARROLL JERONIMO MD Feb 19, 2019 17:11
[2019-02-19] MEDS ORDERED: TETANUS,DIPTH,PERTUSS P/F (BOOSTRIX) 0.5 ML VIAL IM ONE (17:15)
[2019-02-19] MEDS ORDERED: WITCH HAZEL(TUCKS) 40 EA JAR TOP PRN (17:15)
[2019-02-19] MEDS ORDERED: MEASLES,MUMPS,RUBELLA 1 EA INJ SQ ONE (17:15)
[2019-02-19] MEDS ORDERED: BENZOCAINE/MENTHOL (DERMOPLAST) 56 ML CAN TP PRN (17:15)
[2019-02-19] MEDS: IBUPROFEN 600 MG (MOTRIN) TAB PO SCH (19:04)
--- NOTE | 2019-02-19 19:07 | NUR ---
REFER TO LABOR FLOW SHEET.
[2019-02-19] MEDS: DOCUSATE SODIUM 100 MG (COLACE) CAP PO SCH (22:11)
[2019-02-19] MEDS: ACETAMINOPHEN 500 MG TAB (TYLENOL) PO SCH (22:11)
[2019-02-20 01:07] VITALS: BP 95/56
[2019-02-20] MEDS: IBUPROFEN 600 MG (MOTRIN) TAB PO SCH ×4 (01:07→21:26)
[2019-02-20 05:19] VITALS: BP 88/58
[2019-02-20] MEDS: ACETAMINOPHEN 500 MG TAB (TYLENOL) PO SCH ×3 (05:19→18:12)
[2019-02-20 06:02] LABS: BASOPHILS % (AUTO) 0 % (0-10); EOSINOPHILS # (AUTO) 0.1 10^3/uL (0.0-0.3); EOSINOPHILS % (AUTO) 1 % (0-10); HEMATOCRIT 31 % (35-52); HEMOGLOBIN 10.2 G/DL (11.5-16.0); LYMPHOCYTES # (AUTO) 2.2 X 10^3 (1.0-4.0); LYMPHOCYTES % (AUTO) 23 % (12-44); MEAN CORPUSCULAR HEMOGLOBIN 29 PG (25-34); MEAN CORPUSCULAR HGB CONC 33 G/DL (32-36); MEAN CORPUSCULAR VOLUME 90 FL (80-99); MONOCYTES # (AUTO) 0.4 X 10^3 (0.0-1.0); MONOCYTES % (AUTO) 4 % (0-12); NEUTROPHILS # (AUTO) 6.7 X 10^3 (1.8-7.8); NEUTROPHILS % (AUTO) 71 % (42-75); PLATELET COUNT 164 10^3/uL (130-400); RED CELL DISTRIBUTION WIDTH 13.5 % (10.0-14.5); WHITE BLOOD COUNT 9.4 10^3/uL (4.3-11.0)
[2019-02-20 08:00] VITALS: BP 108/75
--- NOTE | 2019-02-20 08:07 | Anesthesia-Regional Post-Op ---
Regional Patient Condition Mental Status: Alert, Oriented x3 Circulation: Same as Pre-Op Headache: Absent Sensation: Full Recovery Motor Block: Absent Post Op Complications Complications None Follow Up Care/Instructions Patient Instructions None needed. Anesthesia/Patient Condition Patient is doing well, no complaints, stable vital signs, no apparent adverse anesthesia problems. No complications reported per nursing. CEE CURRY CRNA Feb 20, 2019 08:07
--- NOTE | 2019-02-20 08:17 | Progress Note ---
Subjective Date Seen by a Provider: Feb 20, 2019 Time Seen by a Provider: 07:20 Subjective/Events-last exam No complaints. No significant vaginal bleeding. Tolerating regular diet Objective Exam Vital Signs Date Time Temp Pulse Resp B/P (MAP) Pulse Ox O2 Delivery O2 Flow Rate FiO2 02/20/19 05:19 36.7 68 18 88/58 (68) 98 Room Air 02/20/19 01:07 36.3 77 18 95/56 (69) 99 Room Air 02/19/19 20:28 37.1 89 18 102/64 (77) Room Air 02/19/19 19:01 83 18 106/72 (83) Room Air 02/19/19 18:31 37.2 83 18 116/81 (93) Room Air 02/19/19 18:01 83 18 111/75 (87) Room Air 02/19/19 17:30 36.9 72 18 106/64 (78) Room Air 02/19/19 17:13 71 18 99/69 (79) Room Air 02/19/19 16:58 37.0 74 18 102/68 (79) Room Air 02/19/19 16:43 36.9 80 18 113/65 (81) Room Air 02/19/19 16:28 36.6 80 18 112/82 (92) Room Air 02/19/19 16:14 102 18 124/75 (91) Room Air 02/19/19 16:07 37.0 02/19/19 16:00 105 18 102/58 (73) 99 Room Air 02/19/19 15:44 81 18 115/72 (86) 97 Room Air 02/19/19 15:40 36.7 02/19/19 15:37 83 18 104/73 (83) 97 Room Air 02/19/19 15:33 68 18 108/62 (77) 97 Room Air 02/19/19 15:29 93 18 103/69 (80) Room Air 02/19/19 15:25 83 18 100/63 (75) 97 Room Air 02/19/19 15:20 94 18 109/71 (84) 98 Room Air 02/19/19 15:14 79 18 103/71 (82) 98 Room Air 02/19/19 15:10 101 18 94/68 (77) 98 Room Air 02/19/19 15:02 94 18 127/61 (83) 98 Room Air 02/19/19 14:59 92 18 97/51 (66) Room Air 02/19/19 14:56 37.0 104 18 101/68 (79) 97 Room Air 02/19/19 14:53 96 18 112/71 (85) 89 Room Air 02/19/19 14:49 93 18 118/76 (90) 96 Room Air 02/19/19 14:46 83 18 125/79 (94) Room Air 02/19/19 14:43 91 18 133/83 (100) 97 Room Air 02/19/19 14:40 101 18 132/91 (105) 96 Room Air 02/19/19 14:37 97 18 127/77 (94) Room Air 02/19/19 14:34 93 18 98 Room Air 02/19/19 14:28 90 18 111/76 (88) Room Air 02/19/19 14:13 89 18 118/90 (99) Room Air 02/19/19 14:03 82 18 104/68 (80) Room Air 02/19/19 13:42 37.2 80 18 102/68 (79) Room Air 02/19/19 13:23 37.3 89 18 98 Room Air 02/19/19 12:35 37.3 02/19/19 12:01 37.7 02/19/19 11:21 89 18 108/78 (88) Room Air I & O 02/20/19 07:00 Intake Total 2500 ml Balance 2500 ml Capillary Refill : Less Than 3 Seconds General Appearance: No Apparent Distress Respiratory: Lungs Clear Gastrointestinal: soft (with firm uterus) Results Lab Laboratory Tests 02/19/19 11:30: White Blood Count 10.2, Red Blood Count 3.90L, Hemoglobin 11.3L, Hematocrit 35, Mean Corpuscular Volume 89, Mean Corpuscular Hemoglobin 29, Mean Corpuscular Hemoglobin Concent 33, Red Cell Distribution Width 13.6, Platelet Count 191, Mean Platelet Volume 11.1H, Neutrophils (%) (Auto) 74, Lymphocytes (%) (Auto) 19, Monocytes (%) (Auto) 6, Eosinophils (%) (Auto) 1, Basophils (%) (Auto) 0, Neutrophils # (Auto) 7.5, Lymphocytes # (Auto) 1.9, Monocytes # (Auto) 0.6, Eosinophils # (Auto) 0.1, Basophils # (Auto) 0.0 02/20/19 05:53: White Blood Count 9.4, Red Blood Count 3.47L, Hemoglobin 10.2L, Hematocrit 31L, Mean Corpuscular Volume 90, Mean Corpuscular Hemoglobin 29, Mean Corpuscular Hemoglobin Concent 33, Red Cell Distribution Width 13.5, Platelet Count 164, Mean Platelet Volume 11.0H, Neutrophils (%) (Auto) 71, Lymphocytes (%) (Auto) 23, Monocytes (%) (Auto) 4, Eosinophils (%) (Auto) 1, Basophils (%) (Auto) 0, Neutrophils # (Auto) 6.7, Lymphocytes # (Auto) 2.2, Monocytes # (Auto) 0.4, Eosinophils # (Auto) 0.1, Basophils # (Auto) 0.0 Assessment/Plan Assessment/Plan Assess & Plan/Chief Complaint 1. S/P day 1 -home in the am of 02/21 -continue routine PP care orders. Clinical Quality Measures DVT/VTE Risk/Contraindication: Risk Factor Score Per Nursin RFS Level Per Nursing on Admit: 1=Low/No VTE PPX CARROLL JERONIMO MD Feb 20, 2019 08:16
[2019-02-20] MEDS: LORATADINE (CLARITIN) 10 MG TAB PO SCH (08:34)
[2019-02-20] MEDS: DOCUSATE SODIUM 100 MG (COLACE) CAP PO SCH ×2 (08:34→21:26)
[2019-02-20] MEDS: PRENATAL VITAMIN 1 EA TAB PO SCH (08:35)
--- NOTE | 2019-02-20 08:50 | NUR ---
PT IN BED, HOLDING . MEDS GIVEN PO; SEE EMAR FOR FURTHER. INITIAL SHIFT ASSESSMENT COMPLETED; SEE INTERVENTION. IV DC'D. SHOWER SET UP. FRESH ICE WATER PROVIDED.
[2019-02-20] MEDS ORDERED: NON-FORMULARY MEDICATION 1 EA EA (Loratadine (Claritin) 10 MG) PO SCH (09:00)
[2019-02-20] MEDS ORDERED: NON-FORMULARY MEDICATION 1 EA EA (Prenatal Vit W-Ca,Fe,FA(<1 mg) (Prenatal Vitamins) 1 TAB PO SCH (09:00)
[2019-02-20 11:00] VITALS: BP 109/76
--- NOTE | 2019-02-20 12:15 | NUR ---
PT IN BED, ALONE, ON HER PHONE, DENIES ANY NEEDS AT THIS TIME.
--- NOTE | 2019-02-20 14:06 | NUR ---
Mother and Grandmother present with infant and child: Offered supportive presence and congratulations. All present demonstrated positive, grateful attitudes. The mother's grandfather was recently admitted to [facility] and is reportedly discouraged in the midst of loss of independence and declining health.
--- NOTE | 2019-02-20 17:09 | NUR ---
PT SITTING UP IN BED, EATING, PT'S MOTHER AT THE BEDSIDE. NO NEEDS VOICED.
[2019-02-20 18:13] VITALS: BP 110/68
[2019-02-20 20:25] VITALS: BP 99/62
[2019-02-21] MEDS: ACETAMINOPHEN 500 MG TAB (TYLENOL) PO SCH (03:08)
[2019-02-21] MEDS: IBUPROFEN 600 MG (MOTRIN) TAB PO SCH ×3 (03:08→15:54)
[2019-02-21 03:10] VITALS: BP 99/67
--- NOTE | 2019-02-21 08:44 | Discharge Summary ---
Diagnosis/Chief Complaint Date of Admission Feb 19, 2019 at 11:15 Date of Discharge Feb 21, 2019 Admission Diagnosis Admission Diagnosis 1. IUP at 36w5d Discharge Diagnosis 1. IUP at 36w5d Chief Complaint/HPI Chief Complaint/HPI 28-year-old G2 T1 L2 initially presented to labor and delivery at 36 weeks 5 days in labor. Patient had labor that was treated with Ramsay. She was noted to be 5 cm dilated upon presentation. Her GBS status was noted to be negative. Discharge Summary-OBS Procedures 1. epidural per anesthesia 2 Spontaneous vaginal delivery Discharge Physical Examination Allergies: Coded Allergies: adhesive tape (Verified Allergy, Unknown, Rash, 02/09/19) calcium carbonate (Verified Allergy, Unknown, Rash, 02/09/19) Vitals & I&Os Vital Sign - Last 12Hours Date Time Temp Pulse Resp B/P (MAP) Pulse Ox O2 Delivery O2 Flow Rate FiO2 02/21/19 03:10 36.5 64 16 99/67 (78) 98 Room Air General Appearance: No Acute Distress Respiratory: Clear to Auscultation Cardiovascular: Regular Rate Abdominal: Soft (with uterus firm) Hospital Course Was the Problem List Reviewed?: Yes Patient was admitted on February 19, 2019 in labor. She ultimately underwent labor coarse. She received epidural per anesthesia and tolerated well. She required Pitocin augmentation. She ultimately went on to deliver a viable female with Apgars of 8 at 1 minute and 9 at 5 minutes. See labor and delivery for full summary. Following delivery she underwent routine care orders. There was no complications during the remainder of her hospital stay. She was tolerating regular diet and ambulatory without chest pain or leg pain. She had hemoglobin day after delivery of 10.2 compared to admission of 11.3. Patient was felt ready for dismissal during the afternoon of February 21, 2019. All questions were answered. Discharge Instructions to patient/family Please see electronic discharge instructions given to patient. Discharge Medications Reviewed and agree with Discharge Medication list on patient's Discharge Instruction sheet Clinical Quality Measures DVT/VTE Risk/Contraindication: Risk Factor Score Per Nursin RFS Level Per Nursing on Admit: 1=Low/No VTE PPX CARROLL JERONIMO MD Feb 21, 2019 08:44
[2019-02-21 08:45] VITALS: BP 104/69
[2019-02-21] MEDS: PRENATAL VITAMIN 1 EA TAB PO SCH (08:45)
[2019-02-21] MEDS: DOCUSATE SODIUM 100 MG (COLACE) CAP PO SCH (08:46)
[2019-02-21] MEDS: LORATADINE (CLARITIN) 10 MG TAB PO SCH (08:46)
--- NOTE | 2019-02-21 08:46 | Discharge Inst-Women's Service ---
Discharge Inst-Women's Serv Depart Medication/Instructions New, Converted or Re-Newed RX: Other (ibuprofen 200 mg 2 or 3 tablets every 6 hours as needed for cramps) Problems Reviewed?: Yes Consults/Follow Up Additional Follow Up: Yes (Dr Jeronimo n 6 weeks at [facility]) Activity Activity: Activity as Tolerated Driving Instructions: No Driving for 1 Week NO SMOKING: NO SMOKING Nothing Inside Vagina: No [place] (for 6 weeks.) Diet Discharge Diet: Regular Diet Return to The Hospital For: as below Symptoms to Report to : Bleeding Excessive, Fever Over 101 Degrees F, Vaginal Discharge Foul For Any Problems or Questions: Contact Your Physician CARROLL JERONIMO MD Feb 21, 2019 08:46
[2019-02-21 10:58] VITALS: BP 104/69
[2019-02-21 13:50] VITALS: BP 125/90
--- NOTE | 2019-02-21 17:51 | NUR ---
Home instructions given. Baby under phototherapy - may require overnight stay. Pt discharged but will stay with infant. Information sheet given on being a boarder mom.
== END 2019-02-21 17:53 | disposition home or self-care (01) | DRG 807 ==
LOC: LDRP 11:15
PROVIDERS: ADMIT Family Medicine; ATTEND Family Medicine
PROC: 10E0XZZ Delivery of Products of Conception, External Approach (ICD-10-PCS; principal; 2019-02-19)
DX: O60.14X0 Preterm labor third trimester with preterm delivery third trimester, not applicable or unspecified (principal); O99.52 Diseases of the respiratory system complicating childbirth; J30.2 Other seasonal allergic rhinitis; Z3A.36 36 weeks gestation of pregnancy; Z37.0 Single live birth
CPT/HCPCS: 36415; 85025; 86850; 86900; 86901

== ENCOUNTER 2019-06-22 13:19 | Emergency (ER) | payer MEDICAID, OTHER ==
[~2019-06-22] VITALS: Ht 162.5 cm; Wt 56.6 kg
[2019-06-22 14:14] LABS: BILIRUBIN,URINE NEGATIVE (NEGATIVE); CLARITY,URINE SL CLOUDY; COLOR,URINE YELLOW; GLUCOSE, URINE (UA) NEGATIVE (NEGATIVE); KETONES,URINE NEGATIVE (NEGATIVE); LEUKOCYTE ESTERASE ,URINE 2+ (NEGATIVE); NITRITE,URINE NEGATIVE (NEGATIVE); PROTEIN,URINE NEGATIVE (NEGATIVE)
[2019-06-22 14:29] LABS: BACTERIA,URINE TRACE /HPF; SQUAMOUS EPITHELIAL CELL,UR 25-50 /HPF; WBC,URINE 25-50 /HPF
[2019-06-22 14:30] LABS: AMORPHOUS SEDIMENT,UR FEW AMOR URATES /LPF
--- NOTE | 2019-06-22 14:31 | ED Lower Extremity ---
General Chief Complaint: Lower Extremity Stated Complaint: LOW R SIDE BACK PAIN Nursing Triage Note: Pt is employed at [employer] and a resident fell against pt. Pt was lowering resident to ground and resident was on top of R knee. Pt c/o R knee at the time, but denies knee pain at this time. Pt now c/o L lower hip pain. Nursing Sepsis Screen: No Definite Risk Source: patient Exam Limitations: no limitations (KELLI MENDEZ MEDICAL STUDENT) History of Present Illness Date Seen by Provider: Jun 22, 2019 Time Seen by Provider: 14:15 Initial Comments Pt is a 28 yo F who comes to the ED for R hip pain. She is an employee at [employer] and was assisting a resident when he began falling. She tried to help him to the ground as best she could, but he ended up landing partly on her R side. She says her left knee was also forced into the hard ground and was supporting his weight. The resident weighs about 160 pounds. She was able to walk into the ED without assistance. She denies ongoing R knee pain, but would like to be assessed for L hip pain. By the time the patient was evaluated, she is no longer having L hip pain and would like to be discharged as soon as possible since she has two young kids at home. Onset: just prior to arrival Severity: mild Pain/Injury Location: right hip; left knee Method of Injury: direct blow Modifying Factors: Improves With Movement (KELLI MENDEZ STUDENT) Onset: just prior to arrival Severity: mild Pain/Injury Location: right hip; left knee Method of Injury: direct blow Modifying Factors: Improves With Rest (CHRISTOPHE BLACK MD) Allergies and Home Medications Allergies Coded Allergies: adhesive tape (Verified Allergy, Unknown, Rash, 02/09/19) calcium carbonate (Verified Allergy, Unknown, Rash, 02/09/19) Home Medications Lansoprazole 15 Mg Capsule.dr, 15 MG PO DAILY, (Reported) Loratadine 10 Mg Tablet, 10 MG PO DAILY, (Reported) Vit W-Ca,Fe,FA(<1 mg) 1 Each Tablet, 1 TAB PO DAILY, (Reported) Patient Home Medication List Home Medication List Reviewed: Yes (KELLI MENDEZ STUDENT) Home Medication List Reviewed: Yes (CHRISTOPHE BLACK MD) Review of Systems Constitutional: No dizziness, No weakness EENTM: no symptoms reported Respiratory: no symptoms reported Cardiovascular: no symptoms reported Gastrointestinal: no symptoms reported Genitourinary: no symptoms reported Control/STD Prophylaxis: Depo Provera Musculoskeletal: No back pain; joint pain (R hip, L knee); No neck pain Skin: No change in color; other (denies abrasions, lacerations, or ecchymosis) Psychiatric/Neurological: No Symptoms Reported (KELLI MENDEZ MEDICAL STUDENT) Respiratory: no symptoms reported Cardiovascular: no symptoms reported Musculoskeletal: No back pain; joint pain (R hip, L knee) (CHRISTOPHE BLACK MD) Past Upbhggg-Awobtz-Ozojwd Hx Past Med/Social Hx: Reviewed Nursing Past Med/Soc Hx (KELLI MENDEZ MEDICAL STUDENT) Past Med/Social Hx: Reviewed Nursing Past Med/Soc Hx (CHRISTOPHE BLACK MD) Patient Social History Alcohol Use: Denies Use Number of Drinks Today: AA Alcohol Beverage of Choice: Beer Recreational Drug Use: No 2nd Hand Smoke Exposure: No Recent Foreign Travel: No Contact w/Someone Who Travel: No Recent Infectious Disease Expo: No Recent Hopitalizations: No (KELLI MENDEZ MEDICAL STUDENT) Immunizations Up To Date Tetanus Booster (TDap): Unknown PED Vaccines UTD: Yes Date of Influenza Vaccine: Jan 30, 2019 (KELLI MENDEZ MEDICAL STUDENT) Seasonal Allergies Seasonal Allergies: Yes (KELLI MENDEZ MEDICAL STUDENT) Past Medical History Surgeries: No Respiratory: No Cardiac: No Neurological: No Female Reproductive Disorders: Denies Sexually Transmitted Disease: Yes (hx: chlamydia and gonorrhea) HIV/AIDS: No Genitourinary: Yes (with pregnacy) UTI-Chronic Gastrointestinal: No Musculoskeletal: No Endocrine: No HEENT: No Cancer: No Psychosocial: No Integumentary: No Blood Disorders: No (KELLI MENDEZ MEDICAL STUDENT) Family Medical History Reviewed Nursing Family Hx (KELLI MENDEZ MEDICAL STUDENT) Reviewed Nursing Family Hx (CHRISTOPHE BLACK MD) Diabetes mellitus 19 FATHER FH: breast cancer Grandparents FH: heart attack 19 MOTHER FH: lupus Grandparents (Paternal Grandmother) FH: prostate cancer Grandparents Hypertension 19 FATHER No Pertinent Family Hx (KELLI MENDEZ MEDICAL STUDENT) Physical Exam Vital Signs Vital Signs - First Documented 06/22/19 13:39 Temp 36.8 Pulse 71 Resp 17 B/P (MAP) 118/82 (94) Pulse Ox 100 O2 Delivery Room Air (CHRISTOPHE BLACK MD) Vital Signs Capillary Refill : Less Than 3 Seconds (KELLI MENDEZ MEDICAL STUDENT) Height, Weight, BMI Height: 5'4.00" Weight: 124lbs. 6.0oz. 56.256307ud; 21.00 BMI Method:Stated General Appearance: WD/WN, no apparent distress HEENT: PERRL/EOMI, other (normocephalic, atraumatic) Neck: non-tender, full range of motion, supple, normal inspection Cardiovascular: regular rate, rhythm, no edema, no gallop, no murmur Respiratory: chest non-tender, lungs clear, normal breath sounds, no respiratory distress Gastrointestinal: normal bowel sounds, non tender, soft Back: normal inspection, no vertebral tenderness Hips: bilateral hip non-tender, bilateral hip normal inspection, bilateral hip normal range of motion, bilateral hip no evidence of injury Legs: bilateral leg non-tender, bilateral leg normal inspection, bilateral leg normal range of motion, bilateral leg no evidence of injury Knees: bilateral knee non-tender, bilateral knee normal inspection, bilateral knee normal range of motion, bilateral knee no evidence of injury Ankles: bilateral ankle non-tender, bilateral ankle normal inspection, bilateral ankle normal range of motion, bilateral ankle no evidence of injury Reflexes: 2+ knee (R), 2+ knee (L), 2+ ankle (R), 2+ ankle (L) Neurologic/Tendon: normal sensation, normal motor functions Neurologic/Psychiatric: alert, oriented x 3 Skin: normal color, warm/dry Lymphatic: no adenopathy (KELLI MENDEZ MEDICAL STUDENT) General Appearance: WD/WN Cardiovascular: regular rate, rhythm, no murmur Respiratory: lungs clear, normal breath sounds Hips: bilateral hip non-tender, bilateral hip normal inspection, bilateral hip normal range of motion, bilateral hip no evidence of injury Knees: bilateral knee non-tender, bilateral knee normal inspection, bilateral knee normal range of motion, bilateral knee no evidence of injury Neurologic/Psychiatric: alert, oriented x 3 (CHRISTOPHE BLACK MD) Progress/Results/Core Measures Results/Orders Lab Results Laboratory Tests Test 06/22/19 14:06 Range/Units Urine Color YELLOW Urine Clarity SL CLOUDY Urine pH 6.0 5-9 Urine Specific [place] 1.010 L 1.016-1.022 Urine Protein NEGATIVE NEGATIVE Urine Glucose (UA) NEGATIVE NEGATIVE Urine Ketones NEGATIVE NEGATIVE Urine Nitrite NEGATIVE NEGATIVE Urine Bilirubin NEGATIVE NEGATIVE Urine Urobilinogen 0.2 < = 1.0 MG/DL Urine Leukocyte Esterase 2+ H NEGATIVE Urine RBC (Auto) NEGATIVE NEGATIVE Urine RBC NONE /HPF Urine WBC 25-50 H /HPF Urine Squamous Epithelial Cells 25-50 H /HPF Urine Crystals PRESENT H /LPF Urine Amorphous Sediment FEW ZOLTAN URATES H /LPF Urine Bacteria TRACE /HPF Urine Casts NONE /LPF Urine Mucus NEGATIVE /LPF Urine Culture Indicated YES (CHRISTOPHE BLACK MD) Vital Signs/I&O 06/22/19 13:39 Temp 36.8 Pulse 71 Resp 17 B/P (MAP) 118/82 (94) Pulse Ox 100 O2 Delivery Room Air (CHRISTOPHE BALCK MD) Blood Pressure Mean: 94 Progress Progress Note : Progress Note Seen and evaluated. Nose significant findings on physical exam. Patient states she feels better and really does not need any further care at this point. Given exam findings I agree. Discharged home with return precautions. Patient verbalize understanding instructions and agreement with plan. (CHRISTOPHE BLACK MD) Departure Impression Primary Impression: Contusion of knee, left Qualified Codes: S80.02XA - Contusion of left knee, initial encounter Additional Impression: Strain of right hip Qualified Codes: S76.011A - Strain of muscle, fascia and tendon of right hip, initial encounter Disposition: 01 HOME, SELF-CARE Condition: Improved Departure-Patient Inst. Decision time for Depature: 14:50 (CHRISTOPHE BLACK MD) Referrals: [facility] (PCP/Family) Primary Care Physician Patient Instructions: Muscle Strain, Contusion (DC) Add. Discharge Instructions: All discharge instructions reviewed with patient and/or family. Voiced understanding. You may take Tylenol or ibuprofen as needed for pain per package directions. You may use ice packs to areas of concern 20 minutes per hour as needed for swelling or pain. Follow-up with your in a few days for recheck if not improved. Return for worse pain, weakness, swelling or other concerns as needed. You may return to work tomorrow. KELLI MENDEZ MEDICAL STUDENT Jun 22, 2019 14:31 CHRISTOPHE BLACK MD Jun 22, 2019 14:51
[2019-06-22 14:56] VITALS: BP 115/90
== END 2019-06-22 14:59 | disposition home or self-care (01) ==
LOC: EDUNIT# 13:19 → ER 13:21
DX: S80.02XA Contusion of left knee, initial encounter (principal); S76.011A Strain of muscle, fascia and tendon of right hip, initial encounter; Z88.8 Allergy status to other drugs, medicaments and biological substances; Z80.42 Family history of malignant neoplasm of prostate; Z80.3 Family history of malignant neoplasm of breast; Z82.49 Family history of ischemic heart disease and other diseases of the circulatory system; W50.0XXA Accidental hit or strike by another person, initial encounter; Y92.59 Other trade areas as the place of occurrence of the external cause
CPT/HCPCS: 81000; 84703; 87088; 99283

== ENCOUNTER 2019-11-08 10:24 | Emergency (ER) | payer SELFPAY ==
[~2019-11-08] VITALS: Ht 162.5 cm; Wt 63.9 kg
[2019-11-08] MEDS ORDERED: LACTATED RINGERS 1,000 ML IV STA (10:33)
[2019-11-08] MEDS ORDERED: KETOROLAC 30 MG/ML VIAL IVP STA (10:33)
[2019-11-08 10:51] LABS: BILIRUBIN,URINE NEGATIVE (NEGATIVE); CLARITY,URINE CLEAR; COLOR,URINE YELLOW; GLUCOSE, URINE (UA) NEGATIVE (NEGATIVE); KETONES,URINE NEGATIVE (NEGATIVE); LEUKOCYTE ESTERASE ,URINE 1+ (NEGATIVE); NITRITE,URINE NEGATIVE (NEGATIVE); PH,URINE 5.5 (5-9); PROTEIN,URINE NEGATIVE (NEGATIVE)
--- NOTE | 2019-11-08 10:54 | Diagnostic Imaging Report ---
INDICATION: Hypertension and chest pain. Time of exam: 10:45 AM Correlation is made with prior chest from 10/23/2016. The heart size is normal. The pulmonary vascularity is unremarkable. The lungs are clear. No infiltrate, effusion or pneumothorax is detected. IMPRESSION: No acute cardiopulmonary process is detected. Dictated by: Dictated on workstation # [id number]
[2019-11-08 10:59] LABS: BACTERIA,URINE MODERATE /HPF; SQUAMOUS EPITHELIAL CELL,UR 25-50 /HPF; WBC,URINE 50-100 /HPF
[2019-11-08 11:12] LABS: BASOPHILS % (AUTO) 0 % (0-10); EOSINOPHILS # (AUTO) 0.2 10^3/uL (0.0-0.3); EOSINOPHILS % (AUTO) 3 % (0-10); HEMATOCRIT 41 % (35-52); HEMOGLOBIN 13.2 G/DL (11.5-16.0); LYMPHOCYTES # (AUTO) 2.5 X 10^3 (1.0-4.0); LYMPHOCYTES % (AUTO) 39 % (12-44); MEAN CORPUSCULAR HEMOGLOBIN 29 PG (25-34); MEAN CORPUSCULAR HGB CONC 33 G/DL (32-36); MEAN CORPUSCULAR VOLUME 88 FL (80-99); MONOCYTES # (AUTO) 0.5 X 10^3 (0.0-1.0); MONOCYTES % (AUTO) 8 % (0-12); NEUTROPHILS # (AUTO) 3.2 X 10^3 (1.8-7.8); NEUTROPHILS % (AUTO) 49 % (42-75); PLATELET COUNT 337 10^3/uL (130-400); RED CELL DISTRIBUTION WIDTH 13.8 % (10.0-14.5); WHITE BLOOD COUNT 6.4 10^3/uL (4.3-11.0)
--- NOTE | 2019-11-08 11:12 | ED General ---
General Chief Complaint: Chest Pain Stated Complaint: HTN,CP Nursing Triage Note: pt reports chest tighness since monday, denies it being pain. Pt went to work this morning and began having high bp, body aches, left arm shaking, headache, fever 99.8, and dizziness. Pt works at [employer]. Nursing Sepsis Screen: No Definite Risk Source of Information: Patient Exam Limitations: No Limitations History of Present Illness Date Seen by Provider: Nov 08, 2019 Time Seen by Provider: 10:25 Initial Comments Here with 2 days of central chest discomfort and tightness and now with dizziness, body aches, temperature of 99.8F and headache. Denies nausea, vomiting or diarrhea. 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 Has been cautious related to COVID-19 exposure and does not think she has been exposed. Timing/Duration: 2-3 Days Severity: Moderate Associated Systoms: Chest Pain; No Cough; Fever/Chills, Malaise; No Nausea/Vomiting, No Shortness of Air; Weakness Allergies and Home Medications Allergies Coded Allergies: adhesive tape (Verified Allergy, Unknown, Rash, 02/09/19) calcium carbonate (Verified Allergy, Unknown, Rash, 02/09/19) Home Medications Cephalexin 500 Mg Tablet, 500 MG PO BID Prescribed by: CHRISTOPHE BLACK on 11/08/19 1200 Lansoprazole 15 Mg Capsule.dr, 15 MG PO DAILY, (Reported) Loratadine 10 Mg Tablet, 10 MG PO DAILY, (Reported) Vit W-Ca,Fe,FA(<1 mg) 1 Each Tablet, 1 TAB PO DAILY, (Reported) Patient Home Medication List Home Medication List Reviewed: Yes Review of Systems Review of Systems Constitutional: see HPI; No chills; dizziness, fever, malaise, weakness EENTM: No nose congestion, No throat pain Respiratory: No cough; short of breath Cardiovascular: chest pain; No edema, No palpitations Gastrointestinal: No abdominal pain, No diarrhea, No nausea, No vomiting Genitourinary: no symptoms reported Musculoskeletal: joint pain, muscle pain Skin: no symptoms reported Hematologic/Lymphatic: No Symptoms Reported All Other Systems Reviewed Negative Unless Noted: Yes Past Aywdsjw-Wbxjex-Iwykzh Hx Past Med/Social Hx: Reviewed Nursing Past Med/Soc Hx Patient Social History Alcohol Use: Denies Use Number of Drinks Today: AA Alcohol Beverage of Choice: Beer Recreational Drug Use: No Smoking Status: Never a Smoker 2nd Hand Smoke Exposure: No Recent Foreign Travel: No Contact w/Someone Who Travel: No Recent Infectious Disease Expo: No Recent Hopitalizations: No Immunizations Up To Date Tetanus Booster (TDap): Unknown PED Vaccines UTD: Yes Date of Influenza Vaccine: Jan 30, 2019 Seasonal Allergies Seasonal Allergies: Yes Past Medical History Surgeries: No Respiratory: No Cardiac: No Neurological: No Hx Para: 2 Female Reproductive Disorders: Denies Sexually Transmitted Disease: Yes (hx: chlamydia and gonorrhea) HIV/AIDS: No Genitourinary: Yes (with pregnacy) UTI-Chronic Gastrointestinal: No Musculoskeletal: No Endocrine: No HEENT: No Cancer: No Psychosocial: No Integumentary: No Blood Disorders: No Family Medical History Reviewed Nursing Family Hx Diabetes mellitus 19 FATHER FH: breast cancer Grandparents FH: heart attack 19 MOTHER FH: lupus Grandparents (Paternal Grandmother) FH: prostate cancer Grandparents Hypertension 19 FATHER No Pertinent Family Hx Physical Exam Vital Signs Vital Signs - First Documented 11/08/19 10:25 Temp 36.7 Pulse 86 Resp 22 B/P (MAP) 118/87 (97) Pulse Ox 100 Capillary Refill : Less Than 3 Seconds Height, Weight, BMI Height: 5'4.00" Weight: 124lbs. 6.0oz. 56.322716of; 24.00 BMI Method:Stated General Appearance: No Apparent Distress, WD/WN HEENT: PERRL/EOMI, Pharynx Normal Neck: Non Tender, Supple Respiratory: Lungs Clear, Normal Breath Sounds Cardiovascular: Regular Rate, Rhythm, No Murmur Gastrointestinal: Non Tender, Soft Back: Normal Inspection, No CVA Tenderness, No Vertebral Tenderness Extremity: Normal Range of Motion, Non Tender Neurologic/Psychiatric: Alert, Oriented x3 Skin: Normal Color, Warm/Dry Progress/Results/Core Measures Suspected Sepsis Recent Fever Within 48 Hours: Yes Infection Criteria Present: None New/Unexplained Altered Menta: No Sepsis Screen: No Definite Risk SIRS Temperature: Pulse: 86 Respiratory Rate: 22 Laboratory Tests 11/08/19 10:50: White Blood Count 6.4 Blood Pressure 118 /87 Mean: 97 Laboratory Tests 11/08/19 10:50: Creatinine 0.79, Platelet Count 337, Total Bilirubin 0.2 Results/Orders Lab Results Laboratory Tests Test 7/10/20 10:38 11/08/19 10:50 Range/Units Urine Color YELLOW Urine Clarity CLEAR Urine pH 5.5 5-9 Urine Specific [place] >=1.030 1.016-1.022 Urine Protein NEGATIVE NEGATIVE Urine Glucose (UA) NEGATIVE NEGATIVE Urine Ketones NEGATIVE NEGATIVE Urine Nitrite NEGATIVE NEGATIVE Urine Bilirubin NEGATIVE NEGATIVE Urine Urobilinogen 0.2 < = 1.0 MG/DL Urine Leukocyte Esterase 1+ H NEGATIVE Urine RBC (Auto) NEGATIVE NEGATIVE Urine RBC NONE /HPF Urine WBC 50-100 H /HPF Urine Squamous Epithelial Cells 25-50 H /HPF Urine Crystals NONE /LPF Urine Bacteria MODERATE H /HPF Urine Casts NONE /LPF Urine Mucus MODERATE H /LPF Urine Culture Indicated YES White Blood Count 6.4 4.3-11.0 10^3/uL Red Blood Count 4.62 4.35-5.85 10^6/uL Hemoglobin 13.2 11.5-16.0 G/DL Hematocrit 41 35-52 % Mean Corpuscular Volume 88 80-99 FL Mean Corpuscular Hemoglobin 29 25-34 PG Mean Corpuscular Hemoglobin Concent 33 32-36 G/DL Red Cell Distribution Width 13.8 10.0-14.5 % Platelet Count 337 130-400 10^3/uL Mean Platelet Volume 10.0 7.4-10.4 FL Neutrophils (%) (Auto) 49 42-75 % Lymphocytes (%) (Auto) 39 12-44 % Monocytes (%) (Auto) 8 0-12 % Eosinophils (%) (Auto) 3 0-10 % Basophils (%) (Auto) 0 0-10 % Neutrophils # (Auto) 3.2 1.8-7.8 X 10^3 Lymphocytes # (Auto) 2.5 1.0-4.0 X 10^3 Monocytes # (Auto) 0.5 0.0-1.0 X 10^3 Eosinophils # (Auto) 0.2 0.0-0.3 10^3/uL Basophils # (Auto) 0.0 0.0-0.1 10^3/uL Erythrocyte Sedimentation Rate 11 0-20 MM/HR D-Dimer 0.34 0.00-0.49 UG/ML Sodium Level 140 135-145 MMOL/L Potassium Level 3.9 3.6-5.0 MMOL/L Chloride Level 106 98-107 MMOL/L Carbon Dioxide Level 23 21-32 MMOL/L Anion Gap 11 5-14 MMOL/L Blood Urea Nitrogen 8 7-18 MG/DL Creatinine 0.79 0.60-1.30 MG/DL Estimat Glomerular Filtration Rate > 60 BUN/Creatinine Ratio 10 Glucose Level 87 70-105 MG/DL Calcium Level 9.3 8.5-10.1 MG/DL Corrected Calcium 9.0 8.5-10.1 MG/DL Total Bilirubin 0.2 0.1-1.0 MG/DL Aspartate Amino Transf (AST/SGOT) 19 5-34 U/L Alanine Aminotransferase (ALT/SGPT) 17 0-55 U/L Alkaline Phosphatase 99 40-136 U/L Troponin I < 0.028 <0.028 NG/ML C-Reactive Protein High Sensitivity 0.17 0.00-0.50 MG/DL Total Protein 7.8 6.4-8.2 GM/DL Albumin 4.4 3.2-4.5 GM/DL My Orders Orders - CHRISTOPHE BLACK MD Cbc With Automated Diff (11/08/19 10:33) Comprehensive Metabolic Panel (11/08/19 10:33) Hs C Reactive Protein (11/08/19 10:33) Erythrocyte Sedimentation Rate (11/08/19 10:33) Fibrin Degradation Products (11/08/19 10:33) Troponin I (11/08/19 10:33) Ua Culture If Indicated (11/08/19 10:33) Ed Iv/Invasive Line Start (11/08/19 10:33) Urine Bedside (11/08/19 10:33) Chest 1 View, Ap/Pa Only (11/08/19 10:33) Ketorolac Injection (Toradol Injection) (11/08/19 10:33) Lactated Ringers (Lr 1000 Ml Iv Solution (11/08/19 10:33) Coronavirus Sars-Cov-2 So 2018 (11/08/19 10:47) Urine Culture (11/08/19 10:38) Vital Signs/I&O 11/08/19 10:25 Temp 36.7 Pulse 86 Resp 22 B/P (MAP) 118/87 (97) Pulse Ox 100 Capillary Refill : Less Than 3 Seconds Blood Pressure Mean: 97 Progress Note : Progress Note Seen and evaluated. IV, labs, use G, chest x-ray and EKG ordered. LR 1 L bolus and Toradol 30 mg IV ordered. We will go ahead and get COVID-19 screening swab given symptoms and fever. Patient informed on isolation requirements. Monitor patient. 1154: Labs not significant this point although urine points towards urinary tract infection. She states she gets those a lot so we will go ahead and initiate treatment. She was instructed on the COVID-19 precautions and quarantine/isolation. Discharged home with return precautions. Patient verbalize understanding instructions and agreement with plan. ECG Initial ECG Impression Date: Nov 08, 2019 Initial ECG Impression Time: 10:22 Initial ECG Rate: 80 Initial ECG Rhythm: Normal Sinus Initial ECG Comparisson: No Previous ECG Available Comment Sinus rhythm with normal axis. No evidence of ST elevation FL. No previous available for comparison. Interpreted by me. Diagnostic Imaging Diagonstic Imaging: Xray Plain Films/CT/US/NM/MRI: chest Comments [facility], [place] NAME: LYLY BARNARD [facility] REC#: [id number] PT STATUS: REG ER : 1990 PHYSICIAN: CHRISTOPHE BLACK MD ADMIT DATE: 11/08/19/ER Draft Date of Exam:11/08/19 CHEST 1 VIEW, AP/PA ONLY INDICATION: Hypertension and chest pain. Time of exam: 10:45 AM Correlation is made with prior chest from 10/23/2016. The heart size is normal. The pulmonary vascularity is unremarkable. The lungs are clear. No infiltrate, effusion or pneumothorax is detected. IMPRESSION: No acute cardiopulmonary process is detected. Dictated on workstation # [id number] Dict: 11/08/19 1051 Trans: 11/08/19 1054 [facility], [facility] [id number] Interpreted by: KHOA DE LA CRUZ MD Electronically signed by: Departure Impression Primary Impression: COVID-19 evaluation Additional Impression: Urinary tract infection Qualified Codes: N30.00 - Acute cystitis without hematuria Disposition: HOME, SELF-CARE Condition: Stable Departure-Patient Inst. Decision time for Depature: 11:55 Referrals: [facility] (PCP/Family) Primary Care Physician Patient Instructions: Coronavirus Disease 2019 (COVID-19) (DC), Urinary Tract Infection, Adult (DC) Add. Discharge Instructions: All discharge instructions reviewed with patient and/or family. Voiced understanding. You will need to remain isolated until 3 days after symptoms resolved but not less than 10 days pending her test results. Your family will need to remain quarantine until test results noted. Follow-up with your doctor. Phone next week for recheck and further evaluation as needed. Return for breathing problems, persistent fever, not able to eat or drink, weakness or other concerns as needed. You may take Tylenol 1000 mg every 6 hours as needed for fever or pain. You may take ibuprofen 400 mg every 6-8 hours as needed for fever or pain. Drink plenty of fluids. Scripts Cephalexin (Cephalexin) 500 Mg Tablet 500 MG PO BID, #14 TAB 0 Refills Prov: CHRISTOPHE BLACK MD 11/08/19 CHRISTOPHE BLACK MD Nov 08, 2019 11:12
[2019-11-08 11:24] LABS: ALBUMIN 4.4 GM/DL (3.2-4.5)
[2019-11-08 11:25] LABS: CHLORIDE 106 MMOL/L (98-107); POTASSIUM 3.9 MMOL/L (3.6-5.0); SODIUM 140 MMOL/L (135-145)
[2019-11-08 11:26] LABS: CALCIUM 9.3 MG/DL (8.5-10.1)
[2019-11-08 11:27] LABS: GLUCOSE 87 MG/DL (70-105); TOTAL PROTEIN 7.8 GM/DL (6.4-8.2)
[2019-11-08 11:28] LABS: CARBON DIOXIDE 23 MMOL/L (21-32)
[2019-11-08 11:29] LABS: BILIRUBIN,TOTAL 0.2 MG/DL (0.1-1.0)
[2019-11-08 11:30] LABS: ALKALINE PHOSPHATASE 99 U/L (40-136)
[2019-11-08 11:31] LABS: CREATININE SERUM 0.79 MG/DL (0.60-1.30); GFR ESTIMATED > 60
[2019-11-08 11:32] LABS: BUN/CREATININE RATIO 10
[2019-11-08 11:34] LABS: ALANINE AMINOTRANSFERASE 17 U/L (0-55)
[2019-11-08 11:36] LABS: ERYTHROCYTE SEDIMENTATION RATE 11 MM/HR (0-20)
[2019-11-08] MEDS ORDERED: CEPH500T PO (12:00)
[2019-11-08 12:06] VITALS: BP 105/73
--- OUTSIDE RECORDS SUMMARY | 2019-11-08 12:51 | XMS REPORT ---
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 RUIZ 11-22-2017 stick/tablet rgnt Other Phone: non-auto w/o micrscp Start: Urnls dip CARROLL RUIZ 11-08-2017 stick/tablet rgnt Other Phone: non-auto w/o micrscp Start: Iadna chlamydia Doctor [facility] 09-28-2011 trachomatis amplified probe tq Start: Urine Doctor Migration 09-28-2011 test visual color cmprsn meths NEGATED: DELIVERY OF NA NA Highlighted PRODUCTS OF row has not CONCEPTION, EXTE occurred! NEGATED: DIVISION OF FEMALE NA NA Highlighted PERINEUM, EXTERNAL row has not AP occurred! DELIVERY OF CARROLL RUIZ MD PRODUCTS OF CONCEPTION, EXTE DIVISION OF FEMALE CARROLL RUIZ MD PERINEUM, EXTERNAL AP Results Test Name Value Interpreta Reference Facilit Date tion Range y Time test, urine (in house) on null TEST, Negative Communi URINE (IN HOUSE) ty [facility] ([id number]) TEST, [id number] Communi URINE (IN HOUSE) ty [facility] (85070) TEST, 07/30/19 Communi URINE (IN HOUSE) ty [facility] (81812) not yet categorized on null Exp date +~07/30/19 Invalid Communi Interpreta ty tion Code [facility] (28443) KET 08/18~slightly Invalid Communi cloudy~Yellow~None~Negative~Negative~Negative Interpreta ty tion Code [facility] (98427) Lot # [id number] Invalid Communi Interpreta ty tion Code [facility] (24213) Lot # [id number] Invalid Communi Interpreta ty tion Code [facility] (53180) RESULTS Negative Invalid Communi Interpreta ty tion Code [facility] (14841) SG 1.015 Invalid Communi Interpreta ty tion Code [facility] (53648) URO 0.2 Invalid Communi Interpreta ty tion Code [facility] (53760) laboratory on null pH (Bld) 7.0 [pH] Invalid Communi Interpreta ty tion Code [facility] (65882) laboratory on 2019-11-08 Albumin [Mass/Vol] 4.4 g/dL Negative 3.2-4.5 PENDING 10-29 0-2 g/dL [facility] 020 [facility] 06:50-0 ([id number]) 400 ALP [Catalytic 99 U/L Negative 40-136 U/L PENDING activity/Vol] LOCATIO 020 [facility] 06:50-0 (09587) 400 ALT [Catalytic 17 U/L Negative 0-55 U/L PENDING activity/Vol] LOC[facility]IO 020 [facility] 06:50-0 (65392) 400 Anion gap 11 mmol/L Negative 5-14 PENDING [Moles/Vol] mmol/L [facility] 020 [facility] 06:50-0 (60576) 400 AST [Catalytic 19 U/L Negative 5-34 U/L PENDING activity/Vol] LOC[facility]IO 020 [facility] 06:50-0 (81751) 400 Bacteria LM Ql MODERATE Abnormal PEND[facility] (Urine sed) [facility] 06:38-0 (74129) 400 Basophils (Bld) 0.0 10*3/uL Negative 0.0-0.1 PENDING 11-07 [#/Vol] 10*3/uL [facility] 020 [facility] 06:50-0 (04308) 400 Basophils/100 WBC 0 % Negative 0-10 % PENDING 11-07 (Bld) [facility] 020 [facility] 06:50-0 (03109) 400 Bilirubin [Mass/Vol] 0.2 mg/dL Negative 0.1-1.0 PENDING mg/dL [facility] 020 [facility] 06:50-0 (06497) 400 Bilirubin Ql (U) Negative Invalid NEGATIVE PENDING Interpreta LOC[facility]IO 020 tion Code N [facility] 06:38-0 (16529) 400 Calcium [Mass/Vol] 9.3 mg/dL Negative 8.5-10.1 PENDING 07-1 0-2 mg/dL LOC[facility] 020 [facility] 06:50-0 (39032) 400 Calcium [Mass/Vol] 9.0 mg/dL Negative 8.5-10.1 PENDING 07-1 0-2 mg/dL LOC[facility] 020 [facility] 06:50-0 (63814) 400 Casts LM Ql (Urine NONE Invalid PENDING sed) Interpreta LOCATIO 020 tion Code N [facility] 06:38-0 (41793) 400 Chloride [Moles/Vol] 106 mmol/L Negative 98-107 PENDING 0 -10-2 mmol/L [facility] 020 N [facility] 06:50-0 ([id number]) 400 Clarity (U) CLEAR Invalid PENDING Interpreta LOCATIO 020 tion Code N [facility] 06:38-0 (51544) 400 CO2 [Moles/Vol] 23 mmol/L Negative 21-32 PENDING 2 mmol/L [facility] 020 [facility] 06:50-0 (17901) 400 Color (U) YELLOW Invalid PENDING Interpreta LOC[facility]IO 020 tion Code [facility] 06:38-0 (06886) 400 Creatinine 0.79 mg/dL Negative 0.60-1.30 PENDING [Mass/Vol] mg/dL [facility] 020 [facility] 06:50-0 (33519) 400 Creatinine and > Invalid PENDING Glomerular Interpreta LOC[facility]IO 020 filtration tion Code [facility] 06:50-0 rate.predicted panel (55163) 400 - Serum, Plasma or Blood CRP [Mass/Vol] 0.17 Negative 0.00-0.50 PENDING mg/[facility] 06:50-0 ([id number]) 400 Crystals LM Ql NONE Invalid PENDING (Urine sed) Interpreta LOCATIO 020 tion Code [facility] 06:38-0 (34721) 400 Eosinophils (Bld) 0.2 10*3/uL Negative 0.0-0.3 PENDING 01-30 [#/Vol] 10*3/uL [facility] 020 [facility] 06:50-0 ([id number]) 400 Eosinophils/100 WBC 3 % Negative 0-10 % PENDING 01-30 (Bld) [facility] 020 [facility] 06:50-0 (47940) 400 Epithelial 25-50 Abnormal PENDING cells.squamous LM Ql LOC[facility] 020 (Urine sed) N [facility] 06:38-0 (32835) 400 Erythrocyte 13.8 % Negative 10.0-14.5 PENDING distribution width % LOC[facility]IO 020 (RBC) [Ratio] N [facility] 06:50-0 (16275) 400 ESR (Bld) [Velocity] 11 Negative 0-20 mm PENDING LOC[facility]IO 020 [facility] 06:50-0 (52261) 400 Fibrin D-dimer FEU 0.34 Negative 0.00-0.49 PENDING 10-29 0-2 (PPP) [Mass/Vol] ug/mL [facility] 020 [facility] 06:50-0 (86628) 400 Glucose [Mass/Vol] 87 mg/dL Negative 70-105 PENDING 10-29 0-2 mg/dL [facility] 020 [facility] 06:50-0 (22455) 400 Glucose Auto test Negative Invalid NEGATIVE PENDING 11-07 strip Ql (U) Interpreta LOCATIO 020 tion Code N [facility] 06:38-0 (29163) 400 Hematocrit (Bld) 41 % Negative 35-52 % PENDING [Volume fraction] LOC[facility]IO 020 [facility] 06:50-0 (80946) 400 Hemoglobin (Bld) 13.2 g/dL Negative 11.5-16.0 PENDING [Mass/Vol] g/dL [facility] 020 [facility] 06:50-0 (65694) 400 Ketones Auto test Negative Invalid NEGATIVE PENDING 11-07 strip Ql (U) Interpreta LOCATIO 020 tion Code N [facility] 06:38-0 (58860) 400 Leukocyte esterase 1+ Abnormal NEGATIVE PENDING 10-29 0-2 Test strip Ql (U) LOC[facility]IO 020 [facility] 06:38-0 (67711) 400 Lymphocytes (Bld) 2.5 10*3/uL Negative 1.0-4.0 PENDING 01-30 [#/Vol] 10*3 LOC[facility]IO 020 [facility] 06:50-0 (89829) 400 Lymphocytes/100 WBC 39 % Negative 12-44 % PENDING 01-30 (Bld) LOC[facility]IO 020 [facility] 06:50-0 (70947) 400 MCH (RBC) [Entitic 29 pg Negative 25-34 pg PENDING 10-29 0-2 mass] LOC[facility]IO 020 [facility] 06:50-0 (32983) 400 MCHC (RBC) 33 g/dL Negative 32-36 g/dL PENDING [Mass/Vol] LOCATIO 020 [facility] 06:50-0 (21301) 400 MCV (RBC) [Entitic 88 Negative 80-99 PENDING 07-1 0-2 vol] [foz_us] [address] 06:50-0 (22204) 400 Monocytes (Bld) 0.5 10*3/uL Negative 0.0-1.0 PENDING 11-07 [#/Vol] 10*[address] 06:50-0 (93292) 400 Monocytes/100 WBC 8 % Negative 0-12 % PENDING 11-07 (Bld) [address] 06:50-0 (22750) 400 Mucus Ql (Urine sed) MODERATE Abnormal PENDING 11-[address] 06:38-0 (11911) 400 Neutrophils (Bld) 3.2 10*3/uL Negative 1.8-7.8 PENDING 01-30 [#/Vol] 10*3 [facility] [address] [place] [address] 06:50-0 (84949) 400 Neutrophils/100 WBC 49 % Negative 42-75 % PENDING 01-30 (Bld) [address] 06:50-0 (29916) 400 Nitrite Ql (U) Negative Invalid NEGATIVE PENDING Interpreta LOCATIO 020 tion Code [facility] 06:38-0 (34675) 400 pH (U) 5.5 [pH] Invalid 5-9 PENDING Interpreta LOCATIO 020 tion Code [facility] 06:38-0 (69757) 400 Platelet mean volume 10.0 Negative 7.4-10.4 PENDING (Bld) [Entitic vol] [foz_us] [facility] [address] [place] [address] 06:50-0 (89820) 400 Platelets (Bld) 337 10*3/uL Negative 130-400 PENDING 11-07 [#/Vol] 10*3/uL [address] 06:50-0 (86815) 400 Potassium 3.9 mmol/L Negative 3.6-5.0 PENDING [Moles/Vol] mmol/L LOC[facility] 020 [facility] 06:50-0 (27714) 400 Protein [Mass/Vol] 7.8 g/dL Negative 6.4-8.2 PENDING - 0-2 g/dL [facility] 020 [facility] 06:50-0 (79030) 400 Protein Ql (U) Negative Invalid NEGATIVE PENDING Interpreta LOC[facility]IO 020 tion Code [facility] 06:38-0 (65308) 400 RBC (Bld) [#/Vol] 4.62 10*6/uL Negative 4.35-5.85 PENDING 10*6/uL LOC[facility] 020 [facility] 06:50-0 (22200) 400 RBC LM.HPF (Urine NONE Invalid PENDING sed) [#/Area] Interpreta LOCATIO 020 tion Code [facility] 06:38-0 (75665) 400 RBC Ql (U) Negative Invalid NEGATIVE PENDING Interpreta LOCATIO 020 tion Code [facility] 06:38-0 (82875) 400 Sodium [Moles/Vol] 140 mmol/L Negative 135-145 PENDING 01-30 mmol/L LOC[facility] 020 [facility] 06:50-0 (99832) 400 Specific gravity (U) >= Invalid 1.016-1.02 PENDING 0 [Rel density] Interpreta 2 LOCATIO 020 tion Code [place] [address]:38-0 (68076) 400 Troponin I.cardiac ng/mL Negative <0.028 PENDING 10-29 0-2 [Mass/Vol] ng/mL LOCATIO 020 [facility] 06:50-0 (12323) 400 Urea nitrogen 8 mg/dL Negative 7-18 mg/dL PENDING [Mass/Vol] LOCATIO 020 [facility] 06:50-0 (88533) 400 Urea 10 mg/mg Invalid PENDING nitrogen/Creatinine Interpreta LOCATIO 020 [Mass ratio] tion Code [facility] 06:50-0 (67185) 400 Urinalysis complete YES Invalid PENDING W Reflex Culture Interpreta LOCATIO 020 panel - Urine tion Code N [facility] 06:38-0 (17027) 400 Urobilinogen (U) 0.2 mg/dL Invalid < = 1.0 PENDING [Mass/Vol] Interpreta mg/dL LOCATIO 020 tion Code N [facility] 06:38-0 (16479) 400 WBC (Bld) [#/Vol] 6.4 10*3/uL Negative 4.3-11.0 PENDING 01-30 10*3/uL LOC[facility] 020 N [facility] 06:50-0 (29949) 400 WBC LM.HPF (Urine Abnormal PENDING sed) [#/Area] LOCATIO 020 N [facility] 06:38-0 (55670) 400 not yet categorized on 2019-07-03 Exp date +~12/2020 Invalid Communi Interpreta ty tion Code [facility] (38301) Lot # [id number] Invalid Communi Interpreta ty tion Code [facility] (54070) RESULTS Negative Invalid Communi Interpreta ty tion Code [facility] (95841) not yet categorized on 2019-04-03 Exp date +~06/2020 Invalid Communi Interpreta ty tion Code [facility] (57520) Lot # [id number] Invalid Communi Interpreta ty tion Code [facility] (28888) RESULTS Negative Invalid Communi Interpreta ty tion Code [facility] (81343) wbc auto (bld) [#/vol] on 2019-02-20 WBC (Bld) [#/Vol] 9.4 10*3/uL 4.3-11.0 [facility] 02-[facility]-2 on [facility] 08:53-0 [facility] 400 l (97967) rbc auto (bld) [#/vol] on 2019-02-20 RBC (Bld) [#/Vol] 3.47 10*6/uL Low 4.35-5.85 [facility] -2 on [address] [facility] 08:53-0 [facility] 400 l (39558) platelets auto (bld) [#/vol] on 2019-02-20 Platelets (Bld) 164 10*3/uL 130-400 [facility] 02-20-2 [#/Vol] on [facility] 08:53-0 [facility] 400 l (38883) platelet mean volume auto (bld) [entitic vol] on 2019-02-20 Platelet mean volume 11.0 fL High 7.4-10.4 [facility] -2 (Bld) [Entitic vol] on [facility] 08:53-0 [facility] 400 l (17475) neutrophils/100 wbc auto (bld) on 2019-02-20 Neutrophils/100 WBC 71 % 42-75 [facility] 02-20- 2 (Bld) on [facility] 08:53-0 [facility] 400 l (51792) neutrophils auto (bld) [#/vol] on 2019-02-20 Neutrophils (Bld) 6.7 10*3/uL 1.8-7.8 [facility] 02-20-2 [#/Vol] on Via [facility] 08:53-0 [facility] 400 l (74833) monocytes/100 wbc (bld) on 2019-02-20 Monocytes/100 WBC 4 % 0-12 [facility] 02-20-2 (Bld) on [facility] 08:53-0 [facility] 400 l (01123) monocytes auto (bld) [#/vol] on 2019-02-20 Monocytes (Bld) 0.4 10*3/uL 0.0-1.0 [facility] 02-20-2 [#/Vol] on Via [facility] 08:53-0 [facility] 400 l (10572) mcv auto (rbc) [entitic vol] on 2019-02-20 MCV (RBC) [Entitic 90 fL 80-99 [facility] 02-20-2 vol] on Via 019 [facility] 08:53-0 [facility] 400 l (62134) mchc auto (rbc) [mass/vol] on 2019-02-20 MCHC (RBC) 33 g/dL 32-36 [facility] 02-20-2 [Mass/Vol] on Via 019 [facility] 08:53-0 [facility] 400 l (53898) mch auto (rbc) [entitic mass] on 2019-02-20 MCH (RBC) [Entitic 29 pg 25-34 [facility] 10-2 mass] on Via [facility] 08:53-0 [facility] 400 l (20241) lymphocytes/100 wbc auto (bld) on 2019-02-20 Lymphocytes/100 WBC 23 % 12-44 [facility] 10-23- 2 (Bld) on [facility] 08:53-0 [facility] 400 l (86554) lymphocytes auto (bld) [#/vol] on 2019-02-20 Lymphocytes (Bld) 2.2 10*3/uL 1.0-4.0 [facility] 10-2 [#/Vol] on Via 019 [facility] 08:53-0 [facility] 400 l (81421) hemoglobin (bldv) [mass/vol] on 2019-02-20 Hemoglobin (Bld) 10.2 g/dL Low 11.5-16.0 [facility] 10-23- 2 [Mass/Vol] on Via 019 [facility] 08:53-0 [facility] 400 l (76979) hematocrit (bld) [volume fraction] on 2019-02-20 Hematocrit (Bld) 31 % Low 35-52 [facility] 10- 2 [Volume fraction] on Via 019 [facility] 08:53-0 [facility] 400 l (77814) erythrocyte distribution width auto (rbc) [ratio] on 2019-02-20 Erythrocyte 13.5 % 10.0-14.5 [facility] 10-2 distribution width on Via 019 (RBC) [Ratio] [facility] 08:53-0 [facility] 400 l (45589) eosinophils/100 wbc auto (bld) on 2019-02-20 Eosinophils/100 WBC 1 % 0-10 [facility] 10- 2 (Bld) on Via [facility]19 [place] 08:53-0 [facility] 400 l (10987) eosinophils auto (bld) [#/vol] on 2019-02-20 Eosinophils (Bld) 0.1 10*3/uL 0.0-0.3 [facility] 10-2 [#/Vol] on Via 0[facility] [place] 08:53-0 [facility] 400 l (48172) basophils/100 wbc auto (bld) on 2019-02-20 Basophils/100 WBC 0 % 0-10 [facility] 10-23-2 (Bld) on Via 019 [place] 08:53-0 [facility] 400 l (36685) basophils auto (bld) [#/vol] on 2019-02-20 Basophils (Bld) 0.0 10*3/uL 0.0-0.1 [facility] 02-20-2 [#/Vol] on Via 0[facility] [place] 08:53-0 [facility] 400 l (26571) laboratory on 2019-02-13 Protein (U) Negative Invalid Communi [Mass/Vol] [facility] S. agalactiae Org SEE NOTE Invalid Communi specific cx Ql (Unsp Interpreta ty spec) [facility] (42178) wbc lm.hpf (urine sed) [#/area] on 2019-02-09 WBC LM.HPF (Urine 5-10 [facility] 02-09-2 sed) [#/Area] on Via 019 [facility] 11:55-0 [facility] 400 l (67609) urobilinogen auto test strip (u) [mass/vol] on 2019-02-09 Urobilinogen (U) NORMAL NORMAL [facility] 02-09-2 [Mass/Vol] on Via 019 [facility] 11:55-0 [facility] 400 l (38482) urinalysis complete w reflex culture panel (u) on 2019-02-09 Urinalysis complete YES [facility] 02-09-2 W Reflex Culture on Via 019 panel - Urine [facility] 11:55-0 [facility] 400 l (43295) specific gravity test strip (u) [rel density] on 2019-02-09 Specific gravity (U) 1.005 1.016-1.02 [facility] 02-09 -2 [Rel density] 2 on [address] 019 [facility] 11:55-0 [facility] 400 l (93136) rbc lm.hpf (urine sed) [#/area] on 2019-02-09 RBC LM.HPF (Urine NONE [facility] 02-09-2 sed) [#/Area] on Via 019 [facility] 11:55-0 [facility] 400 l (62469) rbc lm ql (urine sed) on 2019-02-09 RBC Ql (U) Negative NEGATIVE [facility] 02-09-2 on [address] 0[facility] [place] 11:55-0 [facility] 400 l (25243) protein test strip ql (u) on 2019-02-09 Protein Ql (U) Negative NEGATIVE [facility] 12-2 on [facility] [place] 11:55-0 [facility] 400 l (64005) ph test strip (u) on 2019-02-09 pH (U) 7 [pH] 5-9 [facility] 1012-2 on [address] [facility] [place] 11:55-0 [facility] 400 l (76554) nitrite test strip ql (u) on 2019-02-09 Nitrite Ql (U) Negative NEGATIVE [facility] 1012-2 on [address] [facility] [place] 11:55-0 [facility] 400 l (77100) mucus lm ql (urine sed) on 2019-02-09 Mucus Ql (Urine sed) Negative [facility] 02-09-2 on [facility] 11:55-0 [facility] 400 l (89353) leukocyte esterase test strip ql (u) on 2019-02-09 Leukocyte esterase 3+ NEGATIVE [facility] 02-09-2 Test strip Ql (U) on Via 019 [place] 11:55-0 [facility] 400 l (93956) ketones auto test strip ql (u) on 2019-02-09 Ketones Auto test Negative NEGATIVE [facility] 10-2 strip Ql (U) on Via 019 [place] 11:55-0 [facility] 400 l (20754) glucose auto test strip ql (u) on 2019-02-09 Glucose Auto test Negative NEGATIVE [facility] 10-2 strip Ql (U) on Via 019 [place] 11:55-0 [facility] 400 l (79790) epithelial cells.squamous lm ql (urine sed) on 2019-02-09 Epithelial 5-10 [facility] 10-2 cells.squamous LM Ql on Via 019 (Urine sed) [facility] 11:55-0 [facility] 400 l (02295) crystals lm ql (urine sed) on 2019-02-09 Crystals LM Ql NONE [facility] 02-09-2 (Urine sed) on Via 019 [place] 11:55-0 [facility] 400 l (33084) color (u) on 2019-02-09 Color (U) YELLOW [facility] 10-2 on [address] [facility] [place] 11:55-0 [facility] 400 l (50599) clarity (u) on 2019-02-09 Clarity (U) CLEAR [facility] 10-12-2 on [address] [facility] [place] 11:55-0 [facility] 400 l (16740) casts lm ql (urine sed) on 2019-02-09 Casts LM Ql (Urine NONE [facility] 10-12-2 sed) on Via 019 [place] 11:55-0 [facility] 400 l (18607) bilirubin test strip ql (u) on 2019-02-09 Bilirubin Ql (U) Negative NEGATIVE [facility] 10-12-2 on [address] 019 [facility] 11:55-0 [facility] 400 l (12389) bacteria lm ql (urine sed) on 2019-02-09 Bacteria LM Ql FEW [facility] 10-12-2 (Urine sed) on Via 019 [facility] 11:55-0 [facility] 400 l (31253) bacteria identified cx nom (u) on 2019-02-09 Bacteria identified 3 or more isolates [facility] 10-1 2-2 Cx Nom (U) on Via 019 [facility] 11:55-0 [facility] 400 l (22156) laboratory on 2019-01-30 Protein (U) neg~neg Invalid Communi [Mass/Vol] Interpreta ty tion [facility] (89732) laboratory on 2019-01-02 Protein (U) neg~neg Invalid Communi [Mass/Vol] Interpreta ty tion Code [facility] (61099) laboratory on 2018-12-24 Protein (U) neg~neg Invalid Communi [Mass/Vol] Interpreta ty tion Code [facility] (17045) laboratory on 2018-12-19 Basophils (Bld) 0.023 10*3/uL Normal 0-200 Communi [#/Vol] cells/uL [facility] (71787) Basophils/100 WBC 0.3 % Normal % Communi (Bld) [facility] (98712) Eosinophils (Bld) 0.12 10*3/uL Normal 15-500 Communi [#/Vol] cells/uL [facility] (88175) Eosinophils/100 WBC 1.6 % Normal % Commun i (Bld) [facility] (53534) Erythrocyte 12.9 % Normal 11.0-15.0 Communi distribution width % ty (RBC) [Ratio] [facility] (57209) Glucose 1 Hr post 105 Normal See Note: Communi meal [Mass/Vol] mg/dL [facility] (70208) Hematocrit (Bld) 35.3 % Normal 35.0-45.0 Communi [Volume fraction] % [facility] (04038) Hemoglobin (Bld) 11.9 g/dL Normal 11.7-15.5 Communi [Mass/Vol] g/dL [facility] (18814) Lymphocytes (Bld) 1.493 10*3/uL Normal 850-3900 Commun i [#/Vol] cells/uL [facility] (51314) Lymphocytes/100 WBC 19.9 % Normal % Commun i (Bld) [facility] (56544) MCH (RBC) [Entitic 31.6 pg Normal 27.0-33.0 Communi mass] pg [facility] (40452) MCHC (RBC) 33.7 g/dL Normal 32.0-36.0 Communi [Mass/Vol] g/dL [facility] (01795) MCV (RBC) [Entitic 93.9 fL Normal 80.0-100.0 Communi vol] fL [facility] (06030) Monocytes (Bld) 0.39 10*3/uL Normal 200-950 Communi [#/Vol] cells/uL [facility] (37428) Monocytes/100 WBC 5.2 % Normal % Communi (Bld) [facility] (23309) Neutrophils (Bld) 5.475 10*3/uL Normal 0981-8779 Commun i [#/Vol] cells/uL [facility] (47379) Neutrophils/100 WBC 73 % Normal % Commun i (Bld) [facility] (59193) Platelet mean volume 10.8 fL Normal 7.5-12.5 Commu ni (Bld) [Entitic vol] fL [facility] (49531) Platelets (Bld) 186 10*3/uL Normal 140-400 Communi [#/Vol] Thousand/u ty [facility] (04800) RBC (Bld) [#/Vol] 3.76 10*6/uL Low 3.80-5.10 Communi Million/uL ty [facility] (89349) Reagin Ab RPR Ql (S) NON-REACTIVE Normal NON-REACTI Comm uni VE ty [facility] (48792) WBC (Bld) [#/Vol] 7.5 10*3/uL Normal 3.8-10.8 Communi Thousand/u ty [facility] (08826) wbc lm.hpf (urine sed) [#/area] on 2018-12-08 WBC LM.HPF (Urine Invalid [facility] sed) [#/Area] Interpreta on Via tion Code [facility] () urobilinogen auto test strip (u) [mass/vol] on 2018-12-08 Urobilinogen (U) NORMAL NORMAL [facility] [Mass/Vol] on [facility] (10283) urinalysis complete w reflex culture panel (u) on 2018-12-08 Urinalysis complete YES [facility] W Reflex Culture on Via panel - Urine [facility] () specific gravity test strip (u) [rel density] on 2018-12-08 Specific gravity (U) 1.015 Invalid 1.016-1.02 [facility] [Rel density] Interpreta 2 on Via tion [facility] (23011) rbc lm.hpf (urine sed) [#/area] on 2018-12-08 RBC LM.HPF (Urine NONE [facility] sed) [#/Area] on [facility] (48080) rbc lm ql (urine sed) on 2018-12-08 RBC Ql (U) Negative NEGATIVE [facility] (00739) protein test strip ql (u) on 2018-12-08 Protein Ql (U) Negative NEGATIVE [facility] (33918) ph test strip (u) on 2018-12-08 pH (U) 6 [pH] 5-9 [facility] (72342) nitrite test strip ql (u) on 2018-12-08 Nitrite Ql (U) Negative NEGATIVE [facility] (87205) mucus lm ql (urine sed) on 2018-12-08 Mucus Ql (Urine sed) SMALL Invalid [facility] Interpreta on Via tion [facility] (22655) leukocyte esterase test strip ql (u) on 2018-12-08 Leukocyte esterase 3+ Invalid NEGATIVE [facility] Test strip Ql (U) Interpreta on Via tion [facility] (04654) ketones auto test strip ql (u) on 2018-12-08 Ketones Auto test Negative NEGATIVE [facility] strip Ql (U) on [facility] (73201) glucose auto test strip ql (u) on 2018-12-08 Glucose Auto test Negative NEGATIVE [facility] strip Ql (U) on [facility] (28789) epithelial cells.squamous lm ql (urine sed) on 2018-12-08 Epithelial [facility] cells.squamous LM Ql on Via (Urine sed) [facility] (36946) crystals lm ql (urine sed) on 2018-12-08 Crystals LM Ql NONE [facility] (Urine sed) on [facility] (42813) color (u) on 2018-12-08 Color (U) YELLOW [facility] (71355) clarity (u) on 2018-12-08 Clarity (U) SL CLOUDY [facility] (62465) casts lm ql (urine sed) on 2018-12-08 Casts LM Ql (Urine NONE [facility] sed) on [facility] (26585) bilirubin test strip ql (u) on 2018-12-08 Bilirubin Ql (U) Negative NEGATIVE [facility] (85128) bacteria lm ql (urine sed) on 2018-12-08 Bacteria LM Ql MODERATE Invalid [facility] (Urine sed) Interpreta on Via tion [facility] (55325) bacteria identified cx nom (u) on 2018-12-08 Bacteria identified Organism: Gardnerella vaginalis [facility] Cx Nom (U) on [facility] (62794) laboratory on 2018-11-28 Protein (U) neg~neg Invalid [facility]i [Mass/Vol] Interpreta [facility] (31630) wbc auto (bld) [#/vol] on 2018-11-27 WBC (Bld) [#/Vol] 8.3 10*3/uL 4.3-11.0 [facility] (39273) rbc auto (bld) [#/vol] on 2018-11-27 RBC (Bld) [#/Vol] 3.72 10*6/uL Low 4.35-5.85 [facility] (41266) platelets auto (bld) [#/vol] on 2018-11-27 Platelets (Bld) 193 10*3/uL 130-400 [facility] [#/Vol] on [facility] (59724) platelet mean volume auto (bld) [entitic vol] on 2018-11-27 Platelet mean volume 10.2 fL 7.4-10.4 [facility] (Bld) [Entitic vol] on [facility] (54352) neutrophils/100 wbc auto (bld) on 2018-11-27 Neutrophils/100 WBC 66 % 42-75 [facility] (Bld) on [facility] (23923) neutrophils auto (bld) [#/vol] on 2018-11-27 Neutrophils (Bld) 5.4 10*3/uL 1.8-7.8 [facility] [#/Vol] on [facility] (51361) monocytes/100 wbc (bld) on 2018-11-27 Monocytes/100 WBC 5 % 0-12 [facility] (Bld) on [facility] (58548) monocytes auto (bld) [#/vol] on 2018-11-27 Monocytes (Bld) 0.4 10*3/uL 0.0-1.0 [facility] [#/Vol] on [facility] (83358) mcv auto (rbc) [entitic vol] on 2018-11-27 MCV (RBC) [Entitic 93 fL 80-99 [facility] vol] on [facility] (43326) mchc auto (rbc) [mass/vol] on 2018-11-27 MCHC (RBC) 33 g/dL 32-36 [facility] [Mass/Vol] on [facility] () mch auto (rbc) [entitic mass] on 2018-11-27 MCH (RBC) [Entitic 31 pg 25-34 [facility] mass] on [facility] () lymphocytes/100 wbc auto (bld) on 2018-11-27 Lymphocytes/100 WBC 28 % 12-44 [facility] (Bld) on [facility] () lymphocytes auto (bld) [#/vol] on 2018-11-27 Lymphocytes (Bld) 2.3 10*3/uL 1.0-4.0 [facility] [#/Vol] on [facility] () laboratory on 2018-11-27 Bacteria identified SEE NOTE Invalid Communi Cx Nom (U) Interpreta [facility] () hemoglobin (bldv) [mass/vol] on 2018-11-27 Hemoglobin (Bld) 11.4 g/dL Low 11.5-16.0 [facility] [Mass/Vol] on [facility] () hematocrit (bld) [volume fraction] on 2018-11-27 Hematocrit (Bld) 35 % 35-52 [facility] [Volume fraction] on [facility] () erythrocyte distribution width auto (rbc) [ratio] on 2018-11-27 Erythrocyte 13.7 % 10.0-14.5 [facility] distribution width on Via (RBC) [Ratio] [facility] () eosinophils/100 wbc auto (bld) on 2018-11-27 Eosinophils/100 WBC 1 % 0-10 [facility] (Bld) on [facility] () eosinophils auto (bld) [#/vol] on 2018-11-27 Eosinophils (Bld) 0.1 10*3/uL 0.0-0.3 [facility] [#/Vol] on [facility] () basophils/100 wbc auto (bld) on 2018-11-27 Basophils/100 WBC 0 % 0-10 [facility] (Bld[facility]37220[facility] basophils auto (bld) [#/vol] on 2018-11-27 Basophils (Bld) 0.0 10*3/uL 0.0-0.1 [facility] [#/Vol] on [facility] (86155) laboratory on 2018-10-31 Protein (U) Neg~Trace Invalid [facility]i [Mass/Vol] Interpreta ty tion Code [facility] (27887) laboratory on 2018-09-26 Protein (U) neg~neg Invalid [facility]i [Mass/Vol] Interpreta ty tion Code [facility] (92642) laboratory on 2018-08-29 Protein (U) neg~neg Invalid [facility]i [Mass/Vol] Interpreta ty tion Code [facility] (74062) not yet categorized on 2018-08-01 Control Negative Communi ty [facility] (92152) Control Neg~+ Invalid Communi Interpreta ty tion Code [facility] (28959) Exp date 03/2019 Invalid Communi Interpreta ty tion Code [facility] (25675) Exp date 07/2019 Invalid Communi Interpreta ty tion Code [facility] (66259) KET neg~neg~neg Invalid Communi Interpreta ty tion Code [facility] (47419) DANIELE neg~2+ Invalid Communi Interpreta ty tion Code [facility] (04421) Lot # [id number] Invalid Communi Interpreta ty tion Code [facility] (47074) Lot # [id number] Invalid Communi Interpreta ty tion Code [facility] (15307) Lot # [id number] Invalid Communi Interpreta ty tion Code [facility] (87442) Lot # [id number] Invalid Communi Interpreta ty tion Code [facility] (23097) SG 1.020 Invalid Communi Interpreta ty tion Code [facility] (36524) TCA 12/2018~+~neg~neg~neg~neg~neg~neg~neg~neg~neg~ Invalid Communi neg~neg~neg~n/a Interpreta ty tion Code [facility] (62908) URO 0.2 Invalid Communi Interpreta ty tion Code [facility] (70591) laboratory on 2018-08-01 ABO group Nom (Bld) O Invalid Communi Interpreta ty tion Code [facility] (08521) Bacteria identified SEE NOTE Invalid Communi Aer cx Nom (Genital Interpreta ty specimen) tion Code [facility] (17614) Bacteria identified SEE NOTE Invalid Communi Cx Nom (U) Interpreta ty tion Code [facility] (38247) Basophils (Bld) 0.018 10*3/uL Normal 0-200 Communi [#/Vol] cells/uL [facility] (29611) Basophils/100 WBC 0.2 % Normal % Communi (Bld) [facility] (26909) Blood group antibody Detected Normal Communi screen Ql [facility] (97300) Color (U) 12/2018~clear~yellow Invalid Communi Interpreta ty tion Code [facility] (07938) Eosinophils (Bld) 0.16 10*3/uL Normal 15-500 Communi [#/Vol] cells/uL [facility] (45239) Eosinophils/100 WBC 1.8 % Normal % Commun i (Bld) ty [facility] (39045) Erythrocyte 13.3 % Normal 11.0-15.0 Communi distribution width % ty (RBC) [Ratio] [facility] (73437) Hematocrit (Bld) 37.1 % Normal 35.0-45.0 Communi [Volume fraction] % ty [facility] (98561) Hemoglobin (Bld) 12.6 g/dL Normal 11.7-15.5 Communi [Mass/Vol] g/dL [facility] (37206) Lymphocytes (Bld) 1.833 10*3/uL Normal 850-3900 Commun i [#/Vol] cells/uL [facility] (86164) Lymphocytes/100 WBC 20.6 % Normal % Commun i (Bld) [facility] (02186) MCH (RBC) [Entitic 30.4 pg Normal 27.0-33.0 Communi mass] pg [facility] (87453) MCHC (RBC) 34.0 g/dL Normal 32.0-36.0 Communi [Mass/Vol] g/dL [facility] (05862) MCV (RBC) [Entitic 89.4 fL Normal 80.0-100.0 Communi vol] fL [facility] (25933) Monocytes (Bld) 0.507 10*3/uL Normal 200-950 Communi [#/Vol] cells/uL [facility] (08457) Monocytes/100 WBC 5.7 % Normal % Communi (Bld) [facility] (57307) Neutrophils (Bld) 6.381 10*3/uL Normal 3888-8452 Commun i [#/Vol] cells/uL [facility] (46693) Neutrophils/100 WBC 71.7 % Normal % Commun i (Bld) [facility] (98986) pH (Bld) 7.0 [pH] Invalid Communi Interpreta ty tion [facility] (34169) Platelet mean volume 10.2 fL Normal 7.5-12.5 Commu ni (Bld) [Entitic vol] fL [facility] (58786) Platelets (Bld) 305 10*3/uL Normal 140-400 Communi [#/Vol] Thousand/u ty L [facility] (91200) Protein (U) Negative Invalid Communi [Mass/Vol] Interpreta ty tion Code [facility] (30977) RBC (Bld) [#/Vol] 4.15 10*6/uL Normal 3.80-5.10 Communi Million/uL [facility] (35632) Rh Nom (Bld) Positive Invalid Communi Interpreta ty tion Code [facility] (67733) Rubella virus IgG Qn 1.68 Normal index Commu ni (S) [facility] (51176) TSH Qn 1.68 m[IU]/L Normal [facility]IU/L [facility] (53347) WBC (Bld) [#/Vol] 8.9 10*3/uL Normal 3.8-10.8 Communi Thousand/u ty L [facility] (89810) not yet categorized on 2018-07-11 Exp date +~29 November 2019 Invalid Communi Interpreta ty tion Code [facility] (41621) Lot # [id number] Invalid Communi Interpreta ty tion Code [facility] (97365) RESULTS Positive Invalid [facility] ty tion Code [facility] (79786) wbc auto (bld) [#/vol] on 2017-12-04 WBC (Bld) [#/Vol] 9.8 10*3/uL 4.3-11.0 [facility] (74709) rbc auto (bld) [#/vol] on 2017-12-04 RBC (Bld) [#/Vol] 3.09 10*6/uL Low 4.35-5.85 [facility] (21353) platelets auto (bld) [#/vol] on 2017-12-04 Platelets (Bld) 112 10*3/uL Low 130-400 Via [#/Vol] [facility] (97403) platelet mean volume auto (bld) [entitic vol] on 2017-12-04 Platelet mean volume 12.8 fL High 7.4-10.4 Via (Bld) [Entitic vol] [facility] (84092) neutrophils/100 wbc auto (bld) on 2017-12-04 Neutrophils/100 WBC 76 % High 42-75 Via (Bld) [facility] (60059) neutrophils auto (bld) [#/vol] on 2017-12-04 Neutrophils (Bld) 7.5 10*3/uL 1.8-7.8 Via [#/Vol] [facility] (04091) monocytes/100 wbc (bld) on 2017-12-04 Monocytes/100 WBC 6 % 0-12 Via (Bld) [facility] (92354) monocytes auto (bld) [#/vol] on 2017-12-04 Monocytes (Bld) 0.6 10*3/uL 0.0-1.0 Via [#/Vol] [facility] (84830) mcv auto (rbc) [entitic vol] on 2017-12-04 MCV (RBC) [Entitic 95 fL 80-99 Via vol] [facility] (49721) mchc auto (rbc) [mass/vol] on 2017-12-04 MCHC (RBC) 33 g/dL 32-36 Via [Mass/Vol] [facility] (71684) mch auto (rbc) [entitic mass] on 2017-12-04 MCH (RBC) [Entitic 31 pg 25-34 Via mass] [facility] (26595) lymphocytes/100 wbc auto (bld) on 2017-12-04 Lymphocytes/100 WBC 17 % 12-44 Via (Bld) [facility] (15366) lymphocytes auto (bld) [#/vol] on 2017-12-04 Lymphocytes (Bld) 1.6 10*3/uL 1.0-4.0 Via [#/Vol] [facility] (49622) hemoglobin (bldv) [mass/vol] on 2017-12-04 Hemoglobin (Bld) 9.7 g/dL Low 11.5-16.0 Via [Mass/Vol] [facility] (62855) hematocrit (bld) [volume fraction] on 2017-12-04 Hematocrit (Bld) 29 % Low 35-52 Via [Volume fraction] [facility] (87678) erythrocyte distribution width auto (rbc) [ratio] on 2017-12-04 Erythrocyte 13.9 % 10.0-14.5 Via distribution width [facility] (RBC) [Ratio] [facility] (02507) eosinophils/100 wbc auto (bld) on 2017-12-04 Eosinophils/100 WBC 1 % 0-10 Via (Bld) [facility] (59704) eosinophils auto (bld) [#/vol] on 2017-12-04 Eosinophils (Bld) 0.1 10*3/uL 0.0-0.3 Via [#/Vol] [facility] (17100) basophils/100 wbc auto (bld) on 2017-12-04 Basophils/100 WBC 0 % 0-10 Via (Bld) [facility] (84380) basophils auto (bld) [#/vol] on 2017-12-04 Basophils (Bld) 0.0 10*3/uL 0.0-0.1 Via [#/Vol] [facility] (75460) ua ob dip (in house) on 2017-11-29 Glucose Test strip Negative Communi (U) [Mass/Vol] ty [address] [place] [address] 13:00-[address] (98483) Protein (U) trace Communi [Mass/Vol] ty [address] [place] [address] 13:00-[address] (39504) laboratory on 2017-11-29 Protein (U) Negative Invalid Not [Mass/Vol] Interpreta [facility] tion Code le (28271) laboratory on 2017-11-22 Protein (U) neg~neg Invalid Not [Mass/Vol] Interpreta [facility]ail[facility] tion Code le (30648) S. agalactiae Org SEE NOTE Invalid Not specific cx Ql (Unsp Interpreta [facility] spec) tion Code le (04462) laboratory on 2017-11-08 Protein (U) Neg~Neg Invalid Not [Mass/Vol] Interpreta [facility]ail[facility] tion Code le (93228) laboratory on 2017-10-25 Protein (U) Negative Invalid Not [Mass/Vol] Interpreta Avail[facility] tion Code le (22143) laboratory on 2017-10-11 Protein (U) Negative Invalid Communi [Mass/Vol] Interpreta ty tion Code [facility] (30583) laboratory on 2017-09-27 Basophils (Bld) 0.03 10*3/uL Normal 0-200 Communi [#/Vol] cells/uL ty [facility] (47581) Basophils/100 WBC 0.4 % Normal % Communi (Bld) ty [facility] (35994) Eosinophils (Bld) 0.278 10*3/uL Normal 15-500 Commun i [#/Vol] cells/uL [facility] (04300) Eosinophils/100 WBC 3.7 % Normal % Commun i (Bld) ty [facility] (87904) Erythrocyte 13.0 % Normal 11.0-15.0 Communi distribution width % ty (RBC) [Ratio] [facility] (62103) Hematocrit (Bld) 35.5 % Normal 35.0-45.0 Communi [Volume fraction] % [facility] (67592) Hemoglobin (Bld) 12.0 g/dL Normal 11.7-15.5 Communi [Mass/Vol] g/dL [facility] (31888) Lymphocytes (Bld) 1.583 10*3/uL Normal 850-3900 Commun i [#/Vol] cells/uL [facility] (05470) Lymphocytes/100 WBC 21.1 % Normal % Commun i (Bld) [facility] (79816) MCH (RBC) [Entitic 31.7 pg Normal 27.0-33.0 Communi mass] pg [facility] (01616) MCHC (RBC) 33.8 g/dL Normal 32.0-36.0 Communi [Mass/Vol] g/dL [facility] (11385) MCV (RBC) [Entitic 93.7 fL Normal 80.0-100.0 Communi vol] fL [facility] (77187) Monocytes (Bld) 0.57 10*3/uL Normal 200-950 Communi [#/Vol] cells/uL [facility] (93531) Monocytes/100 WBC 7.6 % Normal % Communi (Bld) [facility] (85995) Neutrophils (Bld) 5.04 10*3/uL Normal 1359-4548 Communi [#/Vol] cells/uL [facility] (01534) Neutrophils/100 WBC 67.2 % Normal % Commun i (Bld) [facility] (91565) Platelet mean volume 10.7 fL Normal 7.5-12.5 Commu ni (Bld) [Entitic vol] fL ty [facility] (07211) Platelets (Bld) 207 10*3/uL Normal 140-400 Communi [#/Vol] Thousand/u ty [facility] (41985) Protein (U) Negative Invalid Communi [Mass/Vol] Interpreta ty tion Code [facility] (81199) RBC (Bld) [#/Vol] 3.79 10*6/uL Low 3.80-5.10 Communi Million/uL ty [facility] (39242) WBC (Bld) [#/Vol] 7.5 10*3/uL Normal 3.8-10.8 Communi Thousand/u [facility] (72935) laboratory on 2017-08-02 Protein (U) Negative Invalid Not [Mass/Vol] Interpreta Availab tion Code le (41226) laboratory on 2017-07-05 Protein (U) Negative Invalid Not [Mass/Vol] Interpreta Availab tion Code le (35557) laboratory on 2017-06-07 Protein (U) Negative Invalid Not [Mass/Vol] Interpreta Avail[facility] tion Code le (87388) not yet categorized on 2017-05-29 Exp date 04/06/18 Invalid Interpreta tion Code Lot # [id number] Invalid Interpreta tion Code not yet categorized on 2017-05-10 CLINICAL Normal Not INFORMATION: [facility] (10531) Date of previous Normal Not biopsy [facility] (09061) Date of previous PAP Normal Not smear [facility] (40520) Exp date 05/2018 Invalid Not Interpreta Avail[facility] tion Code le (69716) GC Negative HEP B ANTIBODY non-reactive Invalid Not Interpreta Avail[facility] tion Code le (54650) KET 12/2017~clear~yellow~none~neg~neg~neg Invalid Not Interpreta Avail[facility] tion Code le (67479) Last menstrual Normal Not period start date [facility] (11664) DANIELE neg~trace Invalid Not Interpreta Avail[facility] tion Code le (77048) Lot # [id number] Invalid Not Interpreta Availab tion Code le (09643) Lot # [id number] Invalid Not Interpreta Availab tion Code le (03493) [facility] [id number]~10/2018~+~neg~neg~neg~neg~neg~neg~ Invalid Not neg~neg~neg~neg~neg~neg~neg Interpreta Availab tion Code le (09548) SG 1.015 Invalid Not Interpreta Availab tion Code le (15888) URO 0.2 Invalid Not Interpreta Availab tion Code le (07158) laboratory on 2017-05-10 ABO group Nom (Bld) O Invalid Not Interpreta Avail[facility] tion Code le (39762) Bacteria identified SEE NOTE Invalid Not Aer cx Nom (Genital Interpreta Avail[facility] specimen) tion Code le () Bacteria identified SEE NOTE Invalid Not Cx Nom (U) Interpreta Availab tion Code le () Basophils (Bld) 0.027 10*3/uL Normal 0-200 Not [#/Vol] cells/uL [facility] (08719) Basophils/100 WBC 0.3 % Normal % Not (Bld) [facility] (21715) Blood group antibody Detected Normal Not screen Ql [facility] () Child Welfare Director Cyto Normal Not stain Nom (Cvx/Vag) [facility] [ID] le (90686) Eosinophils (Bld) 0.187 10*3/uL Normal 15-500 Not [#/Vol] cells/uL [facility] (16124) Eosinophils/100 WBC 2.1 % Normal % Not (Bld) [facility] (95592) Erythrocyte 12.6 % Normal 11.0-15.0 Not distribution width % [facility]ail[facility] (RBC) [Ratio] le (96418) Hematocrit (Bld) 40.1 % Normal 35.0-45.0 Not [Volume fraction] % [facility] (53192) Hemoglobin (Bld) 13.5 g/dL Normal 11.7-15.5 Not [Mass/Vol] g/dL [facility] (81574) Lymphocytes (Bld) 1.86 10*3/uL Normal 850-3900 Not [#/Vol] cells/uL [facility] (23530) Lymphocytes/100 WBC 20.9 % Normal % Not (Bld) [facility] (63286) MCH (RBC) [Entitic 31.2 pg Normal 27.0-33.0 Not mass] pg [facility] (53646) MCHC (RBC) 33.7 g/dL Normal 32.0-36.0 Not [Mass/Vol] g/dL [facility] (99927) MCV (RBC) [Entitic 92.6 fL Normal 80.0-100.0 Not vol] fL [facility] (59364) Microscopic Normal Not observation Cyto Availab stain Nom (Cvx) le (84450) Monocytes (Bld) 0.445 10*3/uL Normal 200-950 Not [#/Vol] cells/uL [facility] (60357) Monocytes/100 WBC 5.0 % Normal % Not (Bld) [facility] (24614) Neutrophils (Bld) 6.381 10*3/uL Normal 0741-9677 Not [#/Vol] cells/uL [facility] (98471) Neutrophils/100 WBC 71.7 % Normal % Not (Bld) [facility] (69074) pH (Bld) 6.0 [pH] Invalid Not Interpreta Availab tion Code le (26529) Platelet mean volume 10.1 fL Normal 7.5-12.5 Not (Bld) [Entitic vol] fL [facility] (88641) Platelets (Bld) 303 10*3/uL Normal 140-400 Not [#/Vol] Thousand/u [facility] le (49243) Protein (U) Negative Invalid Not [Mass/Vol] Interpreta Availab tion Code le (28056) RBC (Bld) [#/Vol] 4.33 10*6/uL Normal 3.80-5.10 Not Million/uL [facility] (14268) Rh Nom (Bld) Positive Invalid Not Interpreta Availab tion Code le (80459) Rubella virus IgG Qn 1.67 Normal index Not (S) [facility] (21198) Specimen source Cyto Cervix Normal Not stain Nom (Cvx/Vag) [facility] (40549) Statement of Normal Not adequacy Cyto stain Availab (Cvx/Vag) [Interp] le (19196) TSH Qn 1.20 m[IU]/L Normal mIU/L Not [facility] (63680) WBC (Bld) [#/Vol] 8.9 10*3/uL Normal 3.8-10.8 Not Thousand/u Avail[facility] L le (69170) not yet categorized on 2017-05-02 GC Negative Invalid Communi Interpreta ty tion Code [facility] (18570) Social History Date Type Detail Facility Start: Denies [facility]ie [facility] 06-22-2019 [facility] (00515) Start: Y - hx: chlamydia and Bertie [facility] 02-19-2019 gonorrhea [facility] (83820) Start: Tobacco smoking status NHIS Never smoked tobac co Bertie [facility] 02-09-2019 (finding) [facility] (31039) End: 02-19-2019 Start: Never a Smoker Bertie [facility] 02-09-2019 [facility] (12441) Start: Denies Use Bertie [facility] 07-11-2013 [facility] (48779) Start: No Bertie [facility] 07-11-2013 [facility] (02651) Start: Sex Assigned At Female [facility] 1990 [facility] (39021) End: 1990 Vital Signs Date Time Vital Sign Value Performing Clinician Facil ity 01-10-2018 Body height 162.56 cm [facility] [id number] Other Phone: [facility] (73795) 01-10-2018 Body mass index 21.27 kg/m2 [facility] [id number]:000400 (BMI) [Ratio] Other Phone: [facility] ([id number]) 01-10-2018 Body temperature 98.3 [degF] [facility] Other Phone: [facility] (35574) 01-10-2018 Body weight 56.2 kg [facility] [id number] Other Phone: [facility] (42784) 12-23-2017 Body height 162.[address] [facility] 11:000400 Other Phone: [facility] [place] (85217) 12-23-2017 Body mass index 21.66 kg/m2 [facility] 11:00-0400 (BMI) [Ratio] Other Phone: [facility] (81226) 12-23-2017 Body temperature 98.2 [degF] [facility] 11:00-0400 Other Phone: [facility] [place] (48284) 12-23-2017 Body weight 57.24 kg [facility] 11:00-0400 Other Phone: [facility] [place] (19371) 12-07-2017 Body height 162.56 cm [facility] 15:00-0400 Other Phone: [facility] [place] (47687) 11-29-2017 Body height 162.56 cm [facility] 16:00-0400 Other Phone: [facility] [place] (34382) 11-29-2017 Body mass index 27.22 kg/m2 [facility] 16:00-0400 (BMI) [Ratio] Other Phone: [facility] ([id number]) 11-29-2017 Body temperature 98.9 [degF] [facility] 16:00-0400 Other Phone: [facility] [place] (02462) 11-29-2017 Body [facility] 71.94 [facility] Other Phone: [facility] [place] (95755) 11-22-2017 Body height 162.56 cm [facility] 15:45-0400 Other Phone: [facility] [place] (02695) 11-22-2017 Body mass index 27.46 kg/m2 [facility] 15:45-0400 (BMI) [Ratio] Other Phone: [facility] (58405) 11-22-2017 Body temperature 98.3 [degF] CARROLL RUIZ [facility] 15:45-0400 Other Phone: [facility] ([id number]) 11-22-2017 Body weight 72.[address] [facility] 15:45-0400 Other Phone: [facility] ([id number]) 11-17-2017 Body height 162.[address] [facility] 17:00-0400 Other Phone: [facility] ([id number]) 11-08-2017 Body height 162.[address] [facility] 16:15-0400 Other Phone: [facility] (50700) 11-08-2017 Body mass index 26.11 kg/m2 [facility] 16:15-0400 (BMI) [Ratio] Other Phone: [facility] ([id number]) 11-08-2017 Body temperature 98.7 [degF] [facility] RUI[facility] 16:15-0400 Other Phone: [facility] () 11-08-2017 Body weight 68.[address] [facility] 16:15-0400 Other Phone: [facility] () 09-28-2011 Body height 162.56 cm Doctor Migration On License Of [facility] 11:46-0400 [facility] ([id number]) 09-28-2011 Body temperature 97.7 [degF] Doctor Migration [facility] 11:46-0400 [facility] ([id number]) 09-28-2011 Body weight 59.65 kg Doctor Migration On License Of [facility] 11:460400 [facility] ([id number]) Functional Status Date Assessment Result Facility 02-21-2019 Functional status [place] Opioid-induced [facility] [place] Sedation Scale (POSS) [facility] ([id number]) and alert 02-09-2019 Functional status [place] Opioid-induced [facility] [facility] [place] Sedation Scale (POSS) [facility] ([id number]) and alert Mental Status Date Assessment Result Facility 02-21-2019 Cognitive function [place] Opioid-induced Asce [facility] [place] Sedation Scale (POSS) [facility] ([id number]) and alert 02-09-2019 Cognitive function [place] Opioid-induced Asce ns[facility] [place] Sedation Scale (POSS) [facility] ([id number]) and alert Evaluation note 2020-02-22 Note Date & Note Facility Type 02-22-2020 Assess & Plan/Chief Complaint [facility] Evaluation 1. S/P day 1 [facility] note -home in the am of 02/21 ([id number]) -continue routine PP care orders. Evaluation note Note Date & Note Facility Type Evaluation No Assessments Information Available A scension Via note [facility] ([id number]) History general Narrative - Reported Note Date & Note Facility Type History general Narrative - Reported Type Medical year around seasonal allerg ies History Surgical No Surgical history informa tion History Hospitalizatio Having contractions and dilating to a 3 11/17/2017 n History Hospitalizatio child 11/2017 n History [facility] ([id number]) History general Narrative - Reported Note Date & Note Facility Type History general Narrative - Reported Type Medical year around seasonal allerg ies History Surgical No Surgical history informa tion History Hospitalizatio Having contractions and dilating to a 3 11/17/2017 n History Hospitalizatio child 11/2017 n History Hospitalizatio premature contractions. dilated at 1.5. put on bedrest 11/28/18 n History [facility] ([id number]) Summary Purpose eClinicalWorks SubmissioneClinicalWorks Submission Advance Directives Directive Response Recor ded Date/Time Advance Directives No 2:49pm Health Care Power of Landscape Technician No 09/18/17 2:49pm Organ Donor Yes 09/18/17 2:49pm Resuscitation Status Full Code 09/18/17 2:49pm Directive Response Recor ded Date/Time Advance Directives No 4:30pm Health Care Power of Landscape Technician No 11/17/17 4:30pm Organ Donor Yes 11/17/17 4:30pm Resuscitation Status Full Code 11/17/17 4:30pm Directive Response Recor ded Date/Time Advance Directives No 9:45am Health Care Power of Landscape Technician No 12/03/17 9:45am Organ Donor Yes 12/03/17 9:45am Resuscitation Status Full Code 12/03/17 9:45am Directive Response Recor ded Date/Time Advance Directives No 10:23pm Health Care Power of Landscape Technician No 12/10/18 10:23pm Organ Donor Yes 12/10/18 10:23pm Resuscitation Status Full Code 12/10/18 10:23pm Advance Directive Response Recorded Date/Time Advance Directives No Au 2018 10:23pm Health Care Power of Landscape Technician No December 10, 2018 10:23pm Organ Donor Yes November 292018 10:23pm Advance Directive Response Recorded Date/Time Advance Directives No Oc tober 2018 12:17pm Health Care Power of Landscape Technician No February 19, 2019 12:17pm Organ Donor Yes February 19, 2019 12:17pm Resuscitation Status Full Code February 19, 2019 12:17pm Advance Directive Response Recorded Date/Time Advance Directives No Shelley denniscandace 2019 1:39pm Health Care Power of Landscape Technician No June 22, 2019 1:39pm Organ Donor Yes June 22, 2019 1:39pm Resuscitation Status Full Code June 22, 2019 1:39pm Discharge Instructions No hospital discharge instruction information available.No hospital discharge instruction information available.No hospital discharge instruction information available.No hospital discharge instruction information available.No hospital discharge instruction information available. Additional Instructions Patient Instructions Physician Instructions New, Converted or Re-Newed RX: Other (ibuprofen 200 mg 2 or 3 tablets every 6 hours as needed for cramps) Additional Follow Up: Yes (Dr Ruiz n 6 weeks at [facility]) Activity: Activity as Tolerated Driving Instructions: No Driving for 1 Week NO SMOKING: NO SMOKING Nothing Inside Vagina: No Lloyd (for 6 weeks.) Discharge Diet: Regular Diet Return to The Hospital For: as below Symptoms to Report to : Bleeding Excessive, Fever Over 101 Degrees F, Vaginal Discharge Foul For Any Problems or Questions: Contact Your Physician Chief Complaint and Reason for Visit Chief Complaint LABOR Chief Complaint Lower Extremity Reason for Visit [id number] Additional Source Comments This clinical document has been generated using [employer] software that has been certified by the Office of the National Coordinator for Health Information Technology (ONC 15.99.04.3023.Diam.31.00.0.579850) and the National Committee for Curb Setter Helper (NCQA, as an eMeasure certified technology). FOR RECORDS PERTAINING TO PATIENTS WHO ARE OR HAVE BEEN ENROLLED IN A CHEMICAL D EPENDENCY/SUBSTANCE ABUSE PROGRAM, SOME INFORMATION MAY BE OMITTED. This clinica l summary was aggregated from multiple sources. Caution should be exercised in using it in the provision of clinical care. This summary normalizes information from multiple sources, and as a consequence, information in this document may ma terially change the coding, format and clinical context of patient data. In vishal tion, data may be omitted in some cases. CLINICAL DECISIONS SHOULD BE BASED ON T HE PRIMARY CLINICAL RECORDS. [employer] provides no warranty or guara ntee of the accuracy or completeness of information in this document.The followi information is based on time limited clinical information UNRECOGNIZED CONTENT PROVIDED BELOW FOR UNRECOGNIZED SECTION REASON FOR VISIT OB f/u 2wk-AHarrymanRNPatient CallOB f/u 2wk-AHarrymanRNBlood pressure check--tc uppettRNOB f/u 2wk-LASHONDA Josue, just wanting to speak about what to do next af ter the hospital visitBPOB f/u 1wk, PT has no concerns at this time-[place] [facility] ood pressure check-AHarrymYoana BHCreferral for med filltooth pain left lower x1 week- swelling started a couple days ago IQjzngrqmQOLS-uewcojyktk-upwkj tWVQ-VurZNR-RtyBqllm referral
--- OUTSIDE RECORDS SUMMARY | 2019-11-08 12:52 | XMS REPORT ---
Author Author Maddie Salcido Doctor Organization [facility] Address Unknown Phone Unavailable Care Team Providers Care Pad Machine Offbearer Name Role Phone Migration, Doctor Unavailable Unavailable PROBLEMS Type Condition ICD9-CM Code HYD21-VH Code Onset Dates Condition S tatus SNOMED Code Problem Chronic gingivitis, plaque induced K05.10 Active [id number] ALLERGIES No Information ENCOUNTERS Encounter Location Date Diagnosis [place] [address] [place] [id number] [place] [phone] 04 Jun, 2019 Encounter for Depo-Provera c ontraception Z30.42 [place] [address] [place] [id number] [address] [place] [phone] 04 Mar, 2019 care following va ginal delivery Z39.2 and Encounter for Depo-Provera contraception Z30.42 [place] [address] [place] [id number] [address] [place] [phone] Mar, [place] [address] [place] [id number] [address] [place] [phone] Jan, labor in third trime ster without delivery O60.03 [place] [address] [place] [id number] [address] [place] [phone] 16 Jan, 2019 Third trimester Z3 4.93 [facility] [address] [facility] [id number] [address] [place] [phone] Jan, labor in third trime ster without delivery O60.03 [place] [address] [facility] [id number] [address] [place] [phone] Jan, [place] [address] [facility] [id number] [address] [place] [address] Jan, Third trimester Z3 4.93 ; Encounter for immunization Z23 and labor in third trimester without delivery O60.03 [facility] [address] [id number] [address] [place] [phone] 25 Dec, 2018 labor in third trime ster without delivery O60.03 [facility] [address] [id number] [address] [place] [phone] 18 Dec, 2018 Third trimester Z3 4.93 and labor in third trimester without delivery O60.03 [facility] [address] [id number] [address] [place] [phone] 16 Dec, 2018 [facility] [address] [id number] [address] [place] [phone] 13 Dec, 2018 [facility] [address] [id number] [address] [place] [phone] Dec, [facility] [address] [facility] [id number] [address] [place] [phone] 11 Dec, 2018 labor in third trime ster without delivery O60.03 [facility] [address] [id number] [address] [place] [phone] 09 Dec, 2018 [facility] [address] [facility] [id number] [address] [place] [phone] 04 Dec, 2018 29 weeks gestation of pregna ncy Z3A.29 and Encounter for immunization Z23 [facility] [address] [facility] [id number] [address] [place] [phone] Nov, labor in second trim abbi without delivery O60.02 [facility] [address] [id number] [address] [place] [address] Nov, 27 weeks gestation of pregna ncy Z3A.27 and care in third trimester Z34.93 [facility] [address] [facility] [id number] [address] [place] [address] Nov, labor in second trim abbi without delivery O60.02 [facility] [address] [facility] [id number] [address] [place] [phone] Nov, [facility] [address] [facility] [id number] [address] [place] [address] Nov, Second trimester Z 34.92 ; 25 weeks gestation of Z3A.25 and labor in second trimester without delivery O60.02 [facility] [address] [facility] [id number] [address] [place] [phone] Oct, Second trimester Z 34.92 [place] [address] [facility] [id number] [address] [place] [phone] Oct, Increased urinary frequency R35.0 ; Spotting during O26.859 and contractions O47.9 [place] [address] [facility] [id number] [address] [place] [phone] Oct, Increased urinary frequency R35.0 and Spotting during O26.859 [place] [address] [facility] [id number] [address] [place] [address] Oct, Encounter for supervision of other normal in second trimester Z34.82 [place] [address] [facility] [id number] [address] [place] [phone] Oct, Encounter for supervision of other normal in second trimester Z34.82 [place] [address] [facility] [id number] [address] [place] [phone] August, Second trimester Z 34.92 and 15 weeks gestation of Z3A.15 [facility] [address] [facility] [id number] [address] [place] [phone] August, Eye swelling H57.89 [facility] [address] [facility] [id number] [address] [place] [address] August, [place] [address] [facility] [id number] [address] [place] [address] August, 11 weeks gestation of pregna ncy Z3A.11 and care in first trimester Z34.91 [place] [address] [facility] [id number] [address] [place] [phone] Jul, Normal in multigra larissa Z34.80 and First trimester Z34.91 [facility] [address] [id number] [address] [place] [phone] Jul, [facility] [address] [id number] [address] [place] [address] Jul, [facility] [address] [id number] [address] [place] [address] Jul, Normal in multigra larissa Z34.80 and First trimester Z34.91 [facility] [address] [id number] [address] [place] [phone] Jun, [facility] [address] [id number] [address] [place] [phone] Jun, [facility] [address] [id number] [address] [place] [phone] Jun, [facility] [address] [id number] [address] [place] [phone] Jun, [facility] [address] [id number] [address] [place] [phone] Jun, test positive Z32. 01 [facility] [address] [id number] [address] [place] [phone] Dec, [facility] [address] [id number] [address] [place] [phone] Dec, Encounter for routine postpa rtum follow-up Z39.2 [facility] [address] [id number] [address] [place] [phone] Dec, [facility] [address] [facility] [id number] [address] [place] [phone] Nov, Blister (nonthermal) of oral cavity, initial encounter S00.522A and Chronic gingivitis, plaque induced K05.10 [facility] [address] [id number] [address] [place] [phone] Nov, [facility] [address] [facility] [id number] [address] [place] [phone] Nov, [facility] [address] [facility] [id number] [address] [place] [phone] Nov, 36 weeks gestation of pregna ncy Z3A.36 and Encounter for immunization Z23 [facility] [address] [facility] [id number] [address] [place] [phone] Oct, Encounter for supervision of normal in third trimester Z34.93 [place] [address] [facility] [id number] [address] [place] [phone] Oct, [place] [address] [facility] [id number] [address] [place] [phone] Oct, [place] [address] [facility] [id number] [address] [place] [address] Oct, 31 weeks gestation of pregna ncy Z3A.31 [place] [address] [facility] [id number] [address] [place] [phone] Sep, 31 weeks gestation of pregna ncy Z3A.31 [place] [address] [facility] [id number] [address] [place] [address] Sep, Encounter for supervision of normal in second trimester Z34.92 and Encounter for immunization Z23 [place] [address] [facility] [id number] [address] [place] [phone] August, 27 weeks gestation of pregna ncy Z3A.27 [place] [address] [facility] [id number] [address] [place] [address] August, Second trimester Z 34.92 [place] [address] [facility] [id number] [address] [place] [phone] Jul, First trimester Z3 4.90 and Second trimester Z34.92 [place] [address] [facility] [id number] [address] [place] [phone] Jun, Normal , first Z34. 00 [facility] [address] [facility] [id number] [address] [place] [address] Jun, First trimester Z3 4.90 [facility] [address] [facility] [id number] [address] [place] [address] May, Screening for deficiency ane naresh Z13.0 [facility] [address] [facility] [id number] [address] [place] [phone] May, [facility] [address] [facility] [id number] [address] [place] [address] May, [facility] [address] [facility] [id number] [address] [place] [address] May, Normal , first Z34. 00 and 7 weeks gestation of Z3A.01 [facility] [address] [facility] [id number] [address] [place] [address] May, Screening for STDs (sexually transmitted diseases) Z11.3 [facility] [address] [facility] [id number] [address] [place] [phone] May, [facility] [address] [facility] [id number] [address] [place] [address] Mar, [facility] [address] [facility] [id number] [address] [place] [phone] Mar, Encounter for test , result unknown Z32.00 [facility] [address] [facility] [id number] [address] [place] [address] [id number] Jan, Dental examination Z01.20 [facility] [address] [facility] [id number] [address] [place] [address] Mar, [facility] [id number] [place] [address] Jan, Encounter for counseling reg arding contraception Z30.9 ; Encounter for initial prescription of contraceptive pills Z30.011 ; Vaginal discharge N89.8 and Hx of sexually transmitted disease Z86.19 [facility] [address] [id number] [address] [place] [address] Oct, [facility] [address] [id number] [address] [place] [phone] Oct, [facility] [address] [id number] [address] [place] [address] Oct, Well woman exam with routine gynecological exam Z01.419 ; Screening breast examination Z12.39 ; Screen for STD (sexually transmitted disease) Z11.3 ; Encounter for initial prescription of intrauterine contraceptive device Z30.014 and Trichomonas vaginitis A59.01 [place] [address] [id number] [address] [place] [phone] Jun, Encounter for PPD test Z11.1 [place] [address] [id number] [address] [place] [id number] 14 Jul, 2014 [place] [address] [id number] [address] [place] [phone] Jul, [facility] [address] [id number] [address] [place] [address] Oct, [facility] [address] [id number] [address] [place] [address] Sep, [facility] [address] [id number] [address] [place] [phone] Sep, [facility] [address] [id number] [address] [place] [phone] August, [facility] [address] [id number] [address] [place] [phone] May, IMMUNIZATIONS No Known Immunizations SOCIAL HISTORY Never Assessed REASON FOR VISIT PLAN OF CARE VITAL SIGNS Height 64 in 2011-09-28 Weight 131.5 lbs 2011-09-28 Temperature 97.7 degrees Fahrenheit 2011-09-28 Heart Rate 72 bpm 2011-09-28 Respiratory Rate 16 2011-09-28 Blood pressure systolic 102 mmHg 2011-09-28 Blood pressure diastolic 68 mmHg 2011-09-28 MEDICATIONS Unknown Medications RESULTS No Results PROCEDURES Procedure Date Ordered Result Body Site CHYLMD TRACH, DNA, AMP PROBE September 28, 2011 URINE TEST September 28, 2011 INSTRUCTIONS MEDICATIONS ADMINISTERED No Known Medications MEDICAL (GENERAL) HISTORY Type Description Date Medical History year around seasonal allergies Surgical History No Surgical history information Hospitalization History Having contractions and dilating to a 3 11/17/2017 Hospitalization History child 11/2017 Hospitalization History premature contractions. dilated at 1 .5. put on bedrest 11/28/18
--- OUTSIDE RECORDS SUMMARY | 2019-11-08 12:52 | XMS REPORT ---
Author Author Maddie Salcido Doctor Organization [facility] Address Unknown Phone Unavailable Care Team Providers Care Rigger Helper Name Role Phone Migration, Doctor Unavailable Unavailable PROBLEMS Type Condition ICD9-CM Code PIC09-ER Code Onset Dates Condition S tatus SNOMED Code Problem Chronic gingivitis, plaque induced K05.10 Active [id number] ALLERGIES No Information ENCOUNTERS Encounter Location Date Diagnosis [place] [address] [place] [id number] [place] [phone] 04 Jun, 2019 Encounter for Depo-Provera c ontraception Z30.42 [place] [address] [place] [id number] [address] [place] [phone] 04 Mar, 2019 care following va ginal delivery Z39.2 and Encounter for Depo-Provera contraception Z30.42 [place] [address] [place] [id number] [address] [place] [phone] Mar, [place] [address] [place] [id number] [address] [place] [phone] Jan, labor in third trime ster without delivery O60.03 [place] [address] [place] [id number] [address] [place] [phone] 16 Jan, 2019 Third trimester Z3 4.93 [facility] [address] [facility] [id number] [address] [place] [address] Jan, labor in third trime ster without delivery O60.03 [place] [address] [facility] [id number] [address] [place] [phone] Jan, [place] [address] [facility] [id number] [address] [place] [address] Jan, Third trimester Z3 4.93 ; Encounter for immunization Z23 and labor in third trimester without delivery O60.03 [facility] [address] [id number] [address] [place] [phone] 25 Dec, 2018 labor in third trime ster without delivery O60.03 [facility] [address] [id number] [address] [place] [phone] 18 Dec, 2018 Third trimester Z3 4.93 and labor in third trimester without delivery O60.03 [facility] [address] [id number] [address] [place] [phone] 16 Dec, 2018 [facility] [address] [id number] [address] [place] [phone] 13 Dec, 2018 [facility] [address] [id number] [address] [place] [phone] Dec, [facility] [address] [facility] [id number] [address] [place] [phone] 11 Dec, 2018 labor in third trime ster without delivery O60.03 [facility] [address] [id number] [address] [place] [phone] 09 Dec, 2018 [facility] [address] [facility] [id number] [address] [place] [phone] 04 Dec, 2018 29 weeks gestation of pregna ncy Z3A.29 and Encounter for immunization Z23 [facility] [address] [facility] [id number] [address] [place] [address] Nov, labor in second trim abbi without delivery O60.02 [facility] [address] [id number] [address] [place] [address] Nov, 27 weeks gestation of pregna ncy Z3A.27 and care in third trimester Z34.93 [facility] [address] [facility] [id number] [address] [place] [phone] Nov, labor in second trim abbi without delivery O60.02 [facility] [address] [facility] [id number] [address] [place] [phone] Nov, [facility] [address] [facility] [id number] [address] [place] [phone] Nov, Second trimester Z 34.92 ; 25 weeks gestation of Z3A.25 and labor in second trimester without delivery O60.02 [facility] [address] [facility] [id number] [address] [place] [address] Oct, Second trimester Z 34.92 [place] [address] [facility] [id number] [address] [place] [phone] Oct, Increased urinary frequency R35.0 ; Spotting during O26.859 and contractions O47.9 [place] [address] [facility] [id number] [address] [place] [address] Oct, Increased urinary frequency R35.0 and Spotting during O26.859 [place] [address] [facility] [id number] [address] [place] [address] Oct, Encounter for supervision of other normal in second trimester Z34.82 [place] [address] [facility] [id number] [address] [place] [address] Oct, Encounter for supervision of other normal in second trimester Z34.82 [place] [address] [facility] [id number] [address] [place] [address] August, Second trimester Z 34.92 and 15 weeks gestation of Z3A.15 [facility] [address] [facility] [id number] [address] [place] [address] August, Eye swelling H57.89 [facility] [address] [facility] [id number] [address] [place] [address] August, [place] [address] [facility] [id number] [address] [place] [address] August, 11 weeks gestation of pregna ncy Z3A.11 and care in first trimester Z34.91 [place] [address] [facility] [id number] [address] [place] [address] Jul, Normal in multigra larissa Z34.80 and First trimester Z34.91 [facility] [address] [id number] [address] [place] [phone] Jul, [facility] [address] [id number] [address] [place] [address] Jul, [facility] [address] [id number] [address] [place] [address] Jul, Normal in multigra larissa Z34.80 and First trimester Z34.91 [facility] [address] [id number] [address] [place] [phone] Jun, [facility] [address] [id number] [address] [place] [phone] Jun, [facility] [address] [id number] [address] [place] [address] Jun, [facility] [address] [id number] [address] [place] [address] Jun, [facility] [address] [id number] [address] [place] [address] Jun, test positive Z32. 01 [facility] [address] [id number] [address] [place] [address] Dec, [facility] [address] [id number] [address] [place] [phone] Dec, Encounter for routine postpa rtum follow-up Z39.2 [facility] [address] [id number] [address] [place] [address] Dec, [facility] [address] [facility] [id number] [address] [place] [phone] Nov, Blister (nonthermal) of oral cavity, initial encounter S00.522A and Chronic gingivitis, plaque induced K05.10 [facility] [address] [id number] [address] [place] [phone] Nov, [facility] [address] [facility] [id number] [address] [place] [address] Nov, [facility] [address] [facility] [id number] [address] [place] [address] Nov, 36 weeks gestation of pregna ncy Z3A.36 and Encounter for immunization Z23 [facility] [address] [facility] [id number] [address] [place] [phone] Oct, Encounter for supervision of normal in third trimester Z34.93 [place] [address] [facility] [id number] [address] [place] [phone] Oct, [place] [address] [facility] [id number] [address] [place] [address] Oct, [place] [address] [facility] [id number] [address] [place] [address] Oct, 31 weeks gestation of pregna ncy Z3A.31 [place] [address] [facility] [id number] [address] [place] [address] Sep, 31 weeks gestation of pregna ncy Z3A.31 [place] [address] [facility] [id number] [address] [place] [address] Sep, Encounter for supervision of normal in second trimester Z34.92 and Encounter for immunization Z23 [place] [address] [facility] [id number] [address] [place] [address] August, 27 weeks gestation of pregna ncy Z3A.27 [place] [address] [facility] [id number] [address] [place] [address] August, Second trimester Z 34.92 [place] [address] [facility] [id number] [address] [place] [address] Jul, First trimester Z3 4.90 and Second trimester Z34.92 [place] [address] [facility] [id number] [address] [place] [address] Jun, Normal , first Z34. 00 [facility] [address] [facility] [id number] [address] [place] [address] Jun, First trimester Z3 4.90 [facility] [address] [facility] [id number] [address] [place] [address] May, Screening for deficiency ane naresh Z13.0 [facility] [address] [facility] [id number] [address] [place] [phone] May, [facility] [address] [facility] [id number] [address] [place] [address] May, [facility] [address] [facility] [id number] [address] [place] [address] May, Normal , first Z34. 00 and 7 weeks gestation of Z3A.01 [facility] [address] [facility] [id number] [address] [place] [address] May, Screening for STDs (sexually transmitted diseases) Z11.3 [facility] [address] [facility] [id number] [address] [place] [address] May, [facility] [address] [facility] [id number] [address] [place] [phone] Mar, [facility] [address] [facility] [id number] [address] [place] [address] Mar, Encounter for test , result unknown Z32.00 [facility] [address] [facility] [id number] [address] [place] [id number] Jan, Dental examination Z01.20 [facility] [address] [facility] [id number] [address] [place] [address] Mar, [facility] [id number] [place] [address] Jan, Encounter for counseling reg arding contraception Z30.9 ; Encounter for initial prescription of contraceptive pills Z30.011 ; Vaginal discharge N89.8 and Hx of sexually transmitted disease Z86.19 [facility] [address] [id number] [address] [place] [address] Oct, [facility] [address] [id number] [address] [place] [address] Oct, [facility] [address] [id number] [address] [place] [address] Oct, Well woman exam with routine gynecological exam Z01.419 ; Screening breast examination Z12.39 ; Screen for STD (sexually transmitted disease) Z11.3 ; Encounter for initial prescription of intrauterine contraceptive device Z30.014 and Trichomonas vaginitis A59.01 [place] [address] [id number] [address] [place] [phone] Jun, Encounter for PPD test Z11.1 [place] [address] [facility] [id number] [address] [place] [phone] 14 Jul, 2014 [place] [address] [facility] [id number] [address] [place] [address] Jul, [place] [address] [facility] [id number] [address] [place] [phone] Oct, [place] [address] [facility] [id number] [address] [place] [phone] Sep, [place] [address] [facility] [id number] [address] [place] [phone] Sep, [place] [address] [facility] [id number] [address] [place] [phone] August, [place] [address] [facility] [id number] [address] [place] [address] May, IMMUNIZATIONS No Known Immunizations SOCIAL HISTORY Never Assessed REASON FOR VISIT PLAN OF CARE VITAL SIGNS MEDICATIONS Unknown Medications RESULTS No Results PROCEDURES No Known procedures INSTRUCTIONS MEDICATIONS ADMINISTERED No Known Medications MEDICAL (GENERAL) HISTORY Type Description Date Medical History year around seasonal allergies Surgical History No Surgical history information Hospitalization History Having contractions and dilating to a 3 11/17/2017 Hospitalization History child 11/2017 Hospitalization History premature contractions. dilated at 1 .5. put on bedrest 11/28/18
--- OUTSIDE RECORDS SUMMARY | 2019-11-08 12:53 | XMS REPORT | Continuity of Care Document ---
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 by light microscopy NONE NRG Mucus detection in urine sediment by light microscopy NEGATIVE NRG Complete urinalysis with reflex to culture YES NRG Amorphous sediment detection in urine sediment by ligh t microscopy FEW ZOLTAN URATES NRG Bacterial urine culture - 06/22/19 14:06 Bacterial urine culture 3 OR MORE NRG COLONY COUNT >100,000/ML NRG FTX;REPORTABLE GRAM POSITIVE ISOLATES; SUGGESTING NRG FREE TEXT ENTRY 2 PROBABLE COLLECTION CONTAMINATIO N WITH NRG FREE TEXT ENTRY 3 SKIN ALYSSA. NO SUSCEPTIBILITY PE RFORMED. NRG Complete urinalysis with reflex to cultu re - 11/08/19 10:38 Urine color determination YELLOW NRG Urine clarity determination CLEAR NR G Urine pH measurement by test strip 5.5 5-9 Specific gravity of urine by test strip >= 1.016-1.022 Urine protein assay by test strip, semi-quantitative NEGATIVE NEGATIVE Urine glucose detection by automated test strip NE GATIVE NEGATIVE Erythrocytes detection in urine sediment by light micr oscopy NEGATIVE NEGATIVE Urine ketones detection by automated test strip NE GATIVE NEGATIVE Urine nitrite detection by test strip NEGATIVE NEGATIVE Urine total bilirubin detection by test strip NEGA TIVE NEGATIVE Urine urobilinogen measurement by automated test strip (mass/volume) 0.2 mg/dL < = 1.0 Urine leukocyte esterase detection by dipstick 1+ NEGATIVE Automated urine sediment erythrocyte cou nt by microscopy (number/high power field) NONE NRG Automated urine sediment leukocyte count by microscopy (number/high power field) [HPF] NRG Bacteria detection in urine sediment by light microsco py MODERATE NRG Squamous epithelial cells detection in u rine sediment by light microscopy 25-50 NRG Crystals detection in urine sediment by light microsco py NONE NRG Casts detection in urine sediment by light microscopy NONE NRG Mucus detection in urine sediment by light microscopy MODERATE NRG Complete urinalysis with reflex to culture YES NRG Complete blood count (CBC) with automate d white blood cell (WBC) differential - 11/08/19 10:50 Blood leukocytes automated count (number/volume) 6.4 10*3/uL 4.3-11.0 Blood erythrocytes automated count (number/volume) 4.62 10*6/uL 4.35-5.85 Venous blood hemoglobin measurement (mass/volume) 13.2 g/dL 11.5-16.0 Blood hematocrit (volume fraction) 41 % 35-52 Automated erythrocyte mean corpuscular volume 88 [ foz_us] 80-99 Automated erythrocyte mean corpuscular h emoglobin (mass per erythrocyte) 29 pg 25-34 Automated erythrocyte mean corpuscular h emoglobin concentration measurement (mass/volume) 33 g/dL 32-36 Automated erythrocyte distribution width ratio 13. 8 % 10.0- 14.5 Automated blood platelet count (count/volume) 337 10*3/uL 130-400 Automated blood platelet mean volume measurement 10.0 [foz_us] 7.4-10.4 Automated blood neutrophils/100 leukocytes 49 % 42-75 Automated blood lymphocytes/100 leukocytes 39 % 12-44 Blood monocytes/100 leukocytes 8 % 0-12 Automated blood eosinophils/100 leukocytes 3 % 0-10 Automated blood basophils/100 leukocytes 0 % 0-10 Blood neutrophils automated count (number/volume) 3.2 10*3 1.8-7.8 Blood lymphocytes automated count (number/volume) 2.5 10*3 1.0-4.0 Blood monocytes automated count (number/volume) 0. 5 10*3 0.0-1.0 Automated eosinophil count 0.2 10*3/uL 0 .0-0.3 Automated blood basophil count (count/volume) 0.0 10*3/uL 0.0-0.1 Comprehensive metabolic panel - 11/08/19 10:50 Serum or plasma sodium measurement (moles/volume) 140 mmol/L 135-145 Serum or plasma potassium measurement (moles/volume) 3.9 mmol/L 3.6-5.0 Serum or plasma chloride measurement (moles/volume) 106 mmol/L 98-107 Carbon dioxide 23 mmol/L 21-32 Serum or plasma anion gap determination (moles/volume) 11 mmol/L 5-14 Serum or plasma urea nitrogen measurement (mass/volume ) 8 mg/dL 7-18 Serum or plasma creatinine measurement (mass/volume) 0.79 mg/dL 0.60-1.30 Serum or plasma urea nitrogen/creatinine mass ratio 10 NRG Serum or plasma creatinine measurement w ith calculation of estimated glomerular filtration rate > NRG Serum or plasma glucose measurement (mass/volume) 87 mg/dL 70-105 Serum or plasma calcium measurement (mass/volume) 9.3 mg/dL 8.5-10.1 Serum or plasma total bilirubin measurement (mass/volu me) 0.2 mg/dL 0.1-1.0 Serum or plasma alkaline phosphatase kamran surement (enzymatic activity/volume) 99 U/L 40-136 Serum or plasma aspartate aminotransfera se measurement (enzymatic activity/volume) 19 U/L 5-34 Serum or plasma alanine aminotransferase measurement (enzymatic activity/volume) 17 U/L 0-55 Serum or plasma protein measurement (mass/volume) 7.8 g/dL 6.4-8.2 Serum or plasma albumin measurement (mass/volume) 4.4 g/dL 3.2-4.5 CALCIUM CORRECTED 9.0 mg/dL 8.5-10.1 Fibrin D-dimer FEU measurement in platel et poor plasma (mass/volume) - 11/08/19 10:50 Fibrin D-dimer FEU measurement in platelet poor plasma (mass/volume) 0.34 ug/mL 0.00-0.49 Erythrocyte sedimentation rate by jennyfer gren method - 11/08/19 10:50 Erythrocyte sedimentation rate by westergren method 11 mm 0- 20 Serum or plasma troponin i.cardiac measu rement (mass/volume) - 11/08/19 10:50 Serum or plasma troponin i.cardiac measurement (mass/v olume) < ng/mL <0.028 Serum or plasma C reactive protein measu rement (mass/volume) - 11/08/19 10:50 Serum or plasma C reactive protein measurement (mass/v olume) 0.17 mg/dL 0.00-0.50 Encounters ACCT No. Visit Date/Time Discharge Status Pt. Type Provider Facility Loc./Unit Complaint [id number] 02/28/2016 07:05:00 Document Registration [id number] 04/03/2019 14:00:00 04/03/2019 23:59:5 9 CLS Outpatient MARK ZAMORANO [facility] [id number] 02/13/2019 14:00:00 Document Registration [id number] 12/19/2018 14:00:00 Document Registration [id number] 11/27/2018 13:40:00 Document Registration [id number] 08/01/2018 14:30:00 Document Registration [id number] 11/22/2017 14:45:00 Document Registration [id number] 09/27/2017 14:15:00 Document Registration [id number] 05/10/2017 15:00:00 Document Registration [id number] 05/02/2017 17:50:00 Document Registration [id number] 06/22/2019 13:21:00 14:59:00 DIS Outpatient CHRISTOPHE BLACK MD Via [facility] ER LOW R SIDE BACK PAIN [id number] 02/19/2019 11:15:00 17:53:00 DIS Inpatient CARROLL JERONIMO MD [facility] LDRP LABOR [id number] 02/10/2019 10:29:00 10:37:00 DIS Outpatient CARROLL JERONIMO MD Via [facility] BETAMETHASONE INJECTION [id number] 02/09/2019 08:42:00 14:20:00 DIS Outpatient [facility] CONTR[facility] [id number] 12/10/2018 22:14:00 23:18:00 DIS Outpatient [facility]LL JERONIMO [facility] VAG BLEEDING [id number] 12/08/2018 21:11:00 22:50:00 DIS Outpatient CLEVELAND MARVIN [facility] CRAMPING,CONTRACTIONS [id number] 11/27/2018 13:16:00 18:40:00 DIS Outpatient CARROLL JERONIMO [facility] PRE-TERM LABOR [id number] 10/23/2018 03:58:00 05:05:00 DIS Emergency CHRISTOPHE BLACK MD [facility] ER BACK ABD PAIN ,VOMITING [id number] 10/23/2018 03:46:00 03:46:00 CAN Preadmit CHRISTOPHE BLACK MD Via [facility] ER 20 WKS 3 DAYS PREG,B ACK ABD PAIN [id number] 11/17/2017 15:49:00 10:40:00 DIS Inpatient YON ISABEL, CLEVELAND Wilson [facility] LDRP CONTRACTIONS [id number] 09/18/2017 14:25:00 018 16:05:00 DIS Outpatient KORTNEY ANGELES MD [facility] WSo SPOTTING [id number] 08/30/2017 15:42:00 018 23:59:59 CLS Outpatient CARROLL JERONIMO MD [facility] RAD RLE SWELLING AND PAIN [id number] 07/19/2017 09:54:00 018 23:59:59 CLS Outpatient CARROLL JERONIMO MD [facility] RAD NORMAL FIRST Z34.00 [id number] 05/17/2017 11:58:00 018 23:59:59 CLS Outpatient CARROLL JERONIMO MD [facility] RAD Z34.00 NORMAL [id number] 10/23/2016 21:16:00 017 22:17:00 DIS Emergency MARQUIS CROWLEY APRN [facility] ER R SIDE AND BACK PAIN [id number] 07/10/2013 23:24:00 014 00:22:00 DIS Emergency [id number] 09/25/2012 17:50:00 013 23:59:59 CLS Outpatient [id number] 11/08/2019 10:59:00 Document Registration [id number] 12/04/2017 07:51:00 Document Registration
== END 2019-11-08 12:06 | disposition home or self-care (01) ==
LOC: EDUNIT# 10:24 → ER 10:26
DX: N39.0 Urinary tract infection, site not specified (principal); Z20.828 Contact with and (suspected) exposure to other viral communicable diseases; Z88.8 Allergy status to other drugs, medicaments and biological substances; Z80.3 Family history of malignant neoplasm of breast; Z82.49 Family history of ischemic heart disease and other diseases of the circulatory system; Z80.42 Family history of malignant neoplasm of prostate
CPT/HCPCS: 71045; 80053; 81000; 84484; 84703; 85025; 85379; 85652; 86141; 87088; 99283; U0002; 36415; 87635

== ENCOUNTER 2022-04-01 10:30 | Emergency (ER) | payer MEDICAID ==
[~2022-04-01] VITALS: Ht 162 cm; Wt 64.1 kg
[~2022-04-01 10:30] MED LIST changes: +CEPH500T PO
[2022-04-01] MEDS ORDERED: ONDANSETRON 4 MG (ZOFRAN) ORAL DISSOLVE TAB PO ONE (11:30)
[2022-04-01 12:09] LABS: BASOPHILS % (AUTO) 0 % (0-10); EOSINOPHILS # (AUTO) 0.1 10^3/uL (0.0-0.3); EOSINOPHILS % (AUTO) 2 % (0-10); HEMATOCRIT 40 % (35-52); HEMOGLOBIN 13.3 g/dL (11.5-16.0); LYMPHOCYTES # (AUTO) 1.6 10^3/uL (1.0-4.0); LYMPHOCYTES % (AUTO) 21 % (12-44); MEAN CORPUSCULAR HEMOGLOBIN 30 pg (25-34); MEAN CORPUSCULAR HGB CONC 33 g/dL (32-36); MEAN CORPUSCULAR VOLUME 91 fL (80-99); MONOCYTES # (AUTO) 0.4 10^3/uL (0.0-1.0); MONOCYTES % (AUTO) 6 % (0-12); NEUTROPHILS # (AUTO) 5.3 10^3/uL (1.8-7.8); NEUTROPHILS % (AUTO) 71 % (42-75); PLATELET COUNT 262 10^3/uL (130-400); WHITE BLOOD COUNT 7.5 10^3/uL (4.3-11.0)
--- NOTE | 2022-04-01 12:11 | ED General ---
General Chief Complaint: General Problems/Pain Stated Complaint: VOMITING BLOOD | 8WKS Nursing Triage Note: Patient states approximately 20 minutes ago that she threw up both dark and bright red emesis. She advised she ate taco sawyer prior to vomiting. History of Present Illness Date Seen by Provider: Apr 01, 2022 Time Seen by Provider: 11:15 Initial Comments Patient is a 31-year-old female who presents to the emergency department for evaluation of possible bloody emesis that started shortly prior to arrival. She states she is 8 weeks . She is . 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 She states she has been sensitive to smells since being . This caused her to start throwing up repeatedly. She states she initially felt like there was some bright red blood in her vomit followed by some darker red coloration. States she does have some mild upper abdominal cramping but denies any lower abdominal cramping. Also denies any vaginal bleeding or abnormal discharge. She states that she has not had much problems with vomiting during the thus far. Does not take anything for nausea. Allergies and Home Medications Allergies Coded Allergies: adhesive tape (Verified Allergy, Unknown, Rash, 02/09/19) calcium carbonate (Verified Allergy, Unknown, Rash, 02/09/19) Patient Home Medication List Home Medication List Reviewed: Yes Cephalexin (Cephalexin) 500 Mg Tablet, 500 MG PO BID Prescribed by: CHRISTOPHE BLACK on 11/08/19 1200 Lansoprazole (Prevacid 24Hr) 15 Mg Capsule.dr, 15 MG PO DAILY, (Reported) Entered as Reported by: RENETTA ALFREDO on 02/09/19 1401 Loratadine (Claritin) 10 Mg Tablet, 10 MG PO DAILY, (Reported) Entered as Reported by: RENETTA ALFREDO on 02/09/19 1401 Vit W-Ca,Fe,FA(<1 mg) ( Vitamins) 1 Each Tablet, 1 TAB PO DAILY, (Reported) Entered as Reported by: DORA HERNANDEZ on 11/27/18 1435 Review of Systems Review of Systems Constitutional: no symptoms reported EENTM: no symptoms reported Respiratory: no symptoms reported Cardiovascular: no symptoms reported Gastrointestinal: see HPI, hematemesis, nausea, vomiting Past Yobutdt-Amcrwc-Saeauc Hx Patient Social History Tobacco Use?: No Substance use?: No Alcohol Use?: No Immunizations Up To Date Tetanus Booster (TDap): Unknown PED Vaccines UTD: Yes First/Initial COVID19 Vaccinat: moderna November 2020 Seasonal Allergies Seasonal Allergies: Yes Past Medical History Surgeries: No Respiratory: No Cardiac: No Neurological: No Female Reproductive Disorders: Denies Sexually Transmitted Disease: Yes (hx: chlamydia and gonorrhea) HIV/AIDS: No Genitourinary: Yes (with pregnacy) UTI-Chronic Gastrointestinal: No Musculoskeletal: No Endocrine: No HEENT: No Cancer: No Psychosocial: No Integumentary: No Blood Disorders: No Family Medical History Diabetes mellitus 19 FATHER FH: breast cancer Grandparents FH: heart attack 19 MOTHER FH: lupus Grandparents (Paternal Grandmother) FH: prostate cancer Grandparents Hypertension 19 FATHER No Pertinent Family Hx Physical Exam Vital Signs Vital Signs - First Documented 04/01/22 10:45 Temp 36.7 Pulse 85 Resp 18 B/P (MAP) 128/77 (94) Pulse Ox 100 O2 Delivery Room Air Capillary Refill : Less Than 3 Seconds Height, Weight, BMI Height: 5'4.00" Weight: 124lbs. 6.0oz. 56.013434kt; 24.00 BMI Method:Stated General Appearance: No Apparent Distress, WD/WN HEENT: PERRL/EOMI, TMs Normal, Normal ENT Inspection, Pharynx Normal Neck: Full Range of Motion, Normal Inspection, Non Tender, Supple Respiratory: Chest Non Tender, Lungs Clear, Normal Breath Sounds, No Accessory Muscle Use, No Respiratory Distress Cardiovascular: Regular Rate, Rhythm Gastrointestinal: Non Tender, Soft Extremity: Normal Capillary Refill, Normal Inspection, Normal Range of Motion, Non Tender, No Calf Tenderness Neurologic/Psychiatric: Alert, Oriented x3, No Motor/Sensory Deficits, Normal Mood/Affect Skin: Normal Color, Warm/Dry Progress/Results/Core Measures Suspected Sepsis SIRS Temperature: Pulse: 85 Respiratory Rate: 18 Laboratory Tests 04/01/22 12:03: White Blood Count 7.5 Blood Pressure 128 /77 Mean: 94 Laboratory Tests 04/01/22 12:03: Creatinine 0.61, Platelet Count 262, Total Bilirubin 0.3 Results/Orders Lab Results Laboratory Tests Test 04/01/22 12:03 Range/Units White Blood Count 7.5 4.3-11.0 10^3/uL Red Blood Count 4.39 3.80-5.11 10^6/uL Hemoglobin 13.3 11.5-16.0 g/dL Hematocrit 40 35-52 % Mean Corpuscular Volume 91 80-99 fL Mean Corpuscular Hemoglobin 30 25-34 pg Mean Corpuscular Hemoglobin Concent 33 32-36 g/dL Red Cell Distribution Width 13.9 10.0-14.5 % Platelet Count 262 130-400 10^3/uL Mean Platelet Volume 10.0 9.0-12.2 fL Immature Granulocyte % (Auto) 0 % Neutrophils (%) (Auto) 71 42-75 % Lymphocytes (%) (Auto) 21 12-44 % Monocytes (%) (Auto) 6 0-12 % Eosinophils (%) (Auto) 2 0-10 % Basophils (%) (Auto) 0 0-10 % Neutrophils # (Auto) 5.3 1.8-7.8 10^3/uL Lymphocytes # (Auto) 1.6 1.0-4.0 10^3/uL Monocytes # (Auto) 0.4 0.0-1.0 10^3/uL Eosinophils # (Auto) 0.1 0.0-0.3 10^3/uL Basophils # (Auto) 0.0 0.0-0.1 10^3/uL Immature Granulocyte # (Auto) 0.0 0.0-0.1 10^3/uL Sodium Level 136 135-145 MMOL/L Potassium Level 3.6 3.6-5.0 MMOL/L Chloride Level 104 98-107 MMOL/L Carbon Dioxide Level 22 21-32 MMOL/L Anion Gap 10 5-14 MMOL/L Blood Urea Nitrogen 5 L 7-18 MG/DL Creatinine 0.61 0.60-1.30 MG/DL Estimat Glomerular Filtration Rate 124 BUN/Creatinine Ratio 8 Glucose Level 78 70-105 MG/DL Calcium Level 9.1 8.5-10.1 MG/DL Corrected Calcium 9.0 8.5-10.1 MG/DL Total Bilirubin 0.3 0.1-1.0 MG/DL Aspartate Amino Transf (AST/SGOT) 36 H 5-34 U/L Alanine Aminotransferase (ALT/SGPT) 63 H 0-55 U/L Alkaline Phosphatase 72 40-136 U/L Total Protein 7.5 6.4-8.2 GM/DL Albumin 4.1 3.2-4.5 GM/DL My Orders Orders - ÁNGEL PICKENS APRN Cbc With Automated Diff (04/01/22 11:26) Comprehensive Metabolic Panel (04/01/22 11:26) Ondansetron Oral Dissolve Tab (Zofran (04/01/22 11:30) Medications Given in ED Current Medications Medications Dose Ordered Sig/Raj Route Start Time Stop Time Status Last Admin Dose Admin Ondansetron HCl 4 mg ONCE ONCE PO 04/01/22 11:30 04/01/22 11:31 DC 04/01/22 11:56 4 MG Vital Signs/I&O 04/01/22 10:45 Temp 36.7 Pulse 85 Resp 18 B/P (MAP) 128/77 (94) Pulse Ox 100 O2 Delivery Room Air Capillary Refill : Less Than 3 Seconds Blood Pressure Mean: 94 Progress Note : Progress Note Patient is nontoxic and well-hydrated on exam. Vital signs are reassuring. Abdominal exam is benign with no focal provocation of pain with palpation or rigidity/distention. Patient endorses some mild persistent nausea but does not actively vomiting in the emergency department. Pretest probability of any significant GI bleed is very unlikely. CBC and CMP were obtained to further stratify risk. These were also very unremarkable. Glascow Blatchford score is 0. Given this very low risk of any significant upper GI bleed, will discharge home with recommendations for supportive care and follow-up with PCP or DOCUMENT MANAGER. Patient was given a prescription for Zofran to help with nausea control. Return precautions for urgent symptomology discussed. Patient verbalized understanding. Departure Impression Primary Impression: Hematemesis Qualified Codes: K92.0 - Hematemesis Disposition: HOME, SELF-CARE Condition: Stable Departure-Patient Inst. Decision time for Depature: 12:40 Referrals: [facility] ([place]/Family) Primary Care Physician Patient Instructions: Gastrointestinal Bleeding (DC) Scripts Ondansetron (Ondansetron Odt) 4 Mg Tab.rapdis 4 MG SL Q4H PRN for NAUSEA/VOMITING for 5 Days, #20 TAB 0 Refills Prov: ÁNGEL PICKENS APRN 04/01/22 ÁNGEL PICKENS APRN Apr 01, 2022 12:11
[2022-04-01 12:28] LABS: ALBUMIN 4.1 GM/DL (3.2-4.5); POTASSIUM 3.6 MMOL/L (3.6-5.0)
[2022-04-01 12:30] LABS: CALCIUM 9.1 MG/DL (8.5-10.1)
[2022-04-01 12:31] LABS: TOTAL PROTEIN 7.5 GM/DL (6.4-8.2)
[2022-04-01 12:33] LABS: BILIRUBIN,TOTAL 0.3 MG/DL (0.1-1.0)
[2022-04-01 12:34] LABS: CREATININE SERUM 0.61 MG/DL (0.60-1.30)
[2022-04-01] MEDS ORDERED: ONDA4TAB11 SL (12:45)
[2022-04-01 12:48] VITALS: BP 128/77
== END 2022-04-01 12:50 | disposition home or self-care (01) ==
LOC: EDUNIT# 10:30 → ER 10:33
DX: O99.611 Diseases of the digestive system complicating pregnancy, first trimester (principal); K92.0 Hematemesis; Z3A.08 8 weeks gestation of pregnancy; Z28.311 Partially vaccinated for COVID-19
CPT/HCPCS: 36415; 80053; 85025; 99283

== ENCOUNTER 2022-05-30 14:01 | Emergency (ER) | payer MEDICAID ==
[~2022-05-30] VITALS: Ht 162 cm; Wt 63.0 kg
[~2022-05-30 14:01] MED LIST changes: +ONDA4TAB11 SL
[2022-05-30] MEDS ORDERED: LACTATED RINGERS 1,000 ML IV ONE (14:45)
[2022-05-30 14:48] LABS: BILIRUBIN,URINE NEGATIVE (NEGATIVE); CLARITY,URINE CLEAR; COLOR,URINE YELLOW; GLUCOSE, URINE (UA) NEGATIVE (NEGATIVE); KETONES,URINE NEGATIVE (NEGATIVE); LEUKOCYTE ESTERASE ,URINE 1+ (NEGATIVE); NITRITE,URINE NEGATIVE (NEGATIVE); PROTEIN,URINE NEGATIVE (NEGATIVE)
[2022-05-30 15:20] LABS: CALCIUM 9.1 MG/DL (8.5-10.1); CREATININE SERUM 0.52 MG/DL (0.60-1.30); MAGNESIUM 2.1 MG/DL (1.6-2.4); POTASSIUM 3.4 MMOL/L (3.6-5.0)
[2022-05-30 15:21] LABS: BACTERIA,URINE TRACE /HPF; WBC,URINE 0-2 /HPF
[2022-05-30 15:21] LABS: BASOPHILS % (AUTO) 0 % (0-10); EOSINOPHILS # (AUTO) 0.2 10^3/uL (0.0-0.3); EOSINOPHILS % (AUTO) 2 % (0-10); HEMATOCRIT 36 % (35-52); HEMOGLOBIN 12.2 g/dL (11.5-16.0); LYMPHOCYTES # (AUTO) 1.5 X 10^3 (1.0-4.0); LYMPHOCYTES % (AUTO) 19 % (12-44); MEAN CORPUSCULAR HEMOGLOBIN 31 pg (25-34); MEAN CORPUSCULAR HGB CONC 34 g/dL (32-36); MEAN CORPUSCULAR VOLUME 93 fL (80-99); MEAN PLATELET VOLUME 10.4 fL (9.0-12.2); MONOCYTES # (AUTO) 0.5 X 10^3 (0.0-1.0); MONOCYTES % (AUTO) 7 % (0-12); NEUTROPHILS # (AUTO) 5.5 X 10^3 (1.8-7.8); NEUTROPHILS % (AUTO) 72 % (42-75); PLATELET COUNT 234 10^3/uL (130-400); WHITE BLOOD COUNT 7.7 10^3/uL (4.3-11.0)
--- NOTE | 2022-05-30 15:50 | ED General ---
General Chief Complaint: Head/Cervical Problems Stated Complaint: HEADACHE | DIZZY | 17 WEEKS Nursing Triage Note: pt presents to ED following a brief episode of neck pain and vomiting. pt states that her symptoms now are PAREKH, dizziness, and tingling in hands. pt is 17wks . Source of Information: Patient Exam Limitations: No Limitations History of Present Illness Date Seen by Provider: May 30, 2022 Time Seen by Provider: 14:25 Allergies and Home Medications Allergies Coded Allergies: adhesive tape (Verified Allergy, Unknown, Rash, 02/09/19) calcium carbonate (Verified Allergy, Unknown, Rash, 02/09/19) Patient Home Medication List Cephalexin (Cephalexin) 500 Mg Tablet, 500 MG PO BID Prescribed by: CHRISTOPHE BLACK on 11/08/19 1200 Lansoprazole (Prevacid 24Hr) 15 Mg Capsule.dr, 15 MG PO DAILY, (Reported) Entered as Reported by: RENETTA ALFREDO on 02/09/19 1401 Loratadine (Claritin) 10 Mg Tablet, 10 MG PO DAILY, (Reported) Entered as Reported by: RENETTA ALFREDO on 02/09/19 1401 Ondansetron (Ondansetron Odt) 4 Mg Tab.rapdis, 4 MG SL Q4H PRN for NAUSEA/VOMITING Prescribed by: Wallace White on 04/01/22 1245 Vit W-Ca,Fe,FA(<1 mg) ( Vitamins) 1 Each Tablet, 1 TAB PO DAILY, (Reported) Entered as Reported by: DORA HERNANDEZ on 11/27/18 1435 Past Wqhauhy-Igemty-Twgiwc Hx Patient Social History Tobacco Use?: No Substance use?: No Alcohol Use?: No Pt feels they are or have been: No Immunizations Up To Date Tetanus Booster (TDap): Unknown PED Vaccines UTD: Yes First/Initial COVID19 Vaccinat: moderna November 2020 Seasonal Allergies Seasonal Allergies: Yes Past Medical History Surgeries: No Respiratory: No Cardiac: No Neurological: No Last Menstrual Period: Feb 14, 2022 Female Reproductive Disorders: Denies Sexually Transmitted Disease: Yes (hx: chlamydia and gonorrhea) HIV/AIDS: No Genitourinary: Yes (with pregnacy) UTI-Chronic Gastrointestinal: No Musculoskeletal: No Endocrine: No HEENT: No Cancer: No Psychosocial: No Integumentary: No Blood Disorders: No Family Medical History Diabetes mellitus 19 FATHER FH: breast cancer Grandparents FH: heart attack 19 MOTHER FH: lupus Grandparents (Paternal Grandmother) FH: prostate cancer Grandparents Hypertension 19 FATHER No Pertinent Family Hx Physical Exam Vital Signs Vital Signs - First Documented 05/30/22 14:15 Temp 36.9 Pulse 96 Resp 18 B/P (MAP) 117/78 (91) Pulse Ox 98 O2 Delivery Room Air Capillary Refill : Less Than 3 Seconds Height, Weight, BMI Height: 5'4.00" Weight: 124lbs. 6.0oz. 56.254902yx; 24.00 BMI Method:Stated Progress/Results/Core Measures Suspected Sepsis SIRS Temperature: Pulse: 96 Respiratory Rate: 18 Laboratory Tests 05/30/22 14:55: White Blood Count 7.7 Blood Pressure 117 /78 Mean: 91 Laboratory Tests 05/30/22 14:55: Creatinine 0.52L, Platelet Count 234 Results/Orders Lab Results Laboratory Tests Test 05/30/22 14:35 05/30/22 14:55 Range/Units Urine Color YELLOW Urine Clarity CLEAR Urine pH 7.0 5-9 Urine Specific [place] 1.015 L 1.016-1.022 Urine Protein NEGATIVE NEGATIVE Urine Glucose (UA) NEGATIVE NEGATIVE Urine Ketones NEGATIVE NEGATIVE Urine Nitrite NEGATIVE NEGATIVE Urine Bilirubin NEGATIVE NEGATIVE Urine Urobilinogen 0.2 < = 1.0 MG/DL Urine Leukocyte Esterase 1+ H NEGATIVE Urine RBC (Auto) NEGATIVE NEGATIVE Urine RBC NONE /HPF Urine WBC 0-2 /HPF Urine Squamous Epithelial Cells 10-25 H /HPF Urine Crystals NONE /LPF Urine Bacteria TRACE /HPF Urine Casts NONE /LPF Urine Mucus NEGATIVE /LPF Urine Culture Indicated NO White Blood Count 7.7 4.3-11.0 10^3/uL Red Blood Count 3.90 3.80-5.11 10^6/uL Hemoglobin 12.2 11.5-16.0 g/dL Hematocrit 36 35-52 % Mean Corpuscular Volume 93 80-99 fL Mean Corpuscular Hemoglobin 31 25-34 pg Mean Corpuscular Hemoglobin Concent 34 32-36 g/dL Red Cell Distribution Width 13.9 10.0-14.5 % Platelet Count 234 130-400 10^3/uL Mean Platelet Volume 10.4 9.0-12.2 fL Immature Granulocyte % (Auto) 0 % Neutrophils (%) (Auto) 72 42-75 % Lymphocytes (%) (Auto) 19 12-44 % Monocytes (%) (Auto) 7 0-12 % Eosinophils (%) (Auto) 2 0-10 % Basophils (%) (Auto) 0 0-10 % Neutrophils # (Auto) 5.5 1.8-7.8 X 10^3 Lymphocytes # (Auto) 1.5 1.0-4.0 X 10^3 Monocytes # (Auto) 0.5 0.0-1.0 X 10^3 Eosinophils # (Auto) 0.2 0.0-0.3 10^3/uL Basophils # (Auto) 0.0 0.0-0.1 10^3/uL Immature Granulocyte # (Auto) 0.0 0.0-0.1 10^3/uL Sodium Level 138 135-145 MMOL/L Potassium Level 3.4 L 3.6-5.0 MMOL/L Chloride Level 105 98-107 MMOL/L Carbon Dioxide Level 22 21-32 MMOL/L Anion Gap 11 5-14 MMOL/L Blood Urea Nitrogen 5 L 7-18 MG/DL Creatinine 0.52 L 0.60-1.30 MG/DL Estimat Glomerular Filtration Rate 129 BUN/Creatinine Ratio 10 Glucose Level 87 70-105 MG/DL Calcium Level 9.1 8.5-10.1 MG/DL Magnesium Level 2.1 1.6-2.4 MG/DL Influenza Type A (RT-PCR) Not Detected Not Detecte Influenza Type B (RT-PCR) Not Detected Not Detecte SARS-CoV-2 RNA (RT-PCR) Not Detected Not Detecte My Orders Orders - JUAN DANIEL VILLA MD Ed Iv/Invasive Line Start (05/30/22 14:41) Lactated Ringers (Lr 1000 Ml Iv Solution (05/30/22 14:45) Basic Metabolic Panel (05/30/22 14:41) Cbc With Automated Diff (05/30/22 14:41) Magnesium (05/30/22 14:41) Ua Culture If Indicated (05/30/22 14:41) Covid 19 Inhouse Test (05/30/22 14:41) Influenza A And B By Pcr (05/30/22 14:41) Acetaminophen Tablet/Caplet (Tylenol T (05/30/22 16:00) Orthostatic Vital Signs (Adult (05/30/22 15:50) Medications Given in ED Current Medications Medications Dose Ordered Sig/Raj Route Start Time Stop Time Status Last Admin Dose Admin Acetaminophen 650 mg ONCE ONCE PO 05/30/22 16:00 05/30/22 16:01 DC 05/30/22 16:02 650 MG Lactated Ringer's 1,000 ml @ 0 mls/hr Q0M ONCE IV 05/30/22 14:45 05/30/22 14:46 DC 05/30/22 14:59 1,000 MLS/HR Vital Signs/I&O 05/30/22 05/30/22 14:15 16:00 Temp 36.9 Pulse 96 91 80 91 Resp 18 B/P (MAP) 117/78 (91) 102/70 (81) 104/72 (83) 106/77 (87) Pulse Ox 98 O2 Delivery Room Air Capillary Refill : Less Than 3 Seconds Blood Pressure Mean: 91 Departure Impression Primary Impression: Acute headache Qualified Codes: R51.9 - Headache, unspecified Additional Impressions: Vomiting Qualified Codes: R11.2 - Nausea with vomiting, unspecified Lightheaded Qualified Codes: Z3A.17 - 17 weeks gestation of Disposition: 01 HOME, SELF-CARE Condition: Improved Departure-Patient Inst. Decision time for Depature: 16:02 Referrals: CARROLL JERONIMO MD (PCP) Primary Care Physician [facility] (Family) Primary Care Physician Patient Instructions: Head Injury in Adults, Nausea and Vomiting of Add. Discharge Instructions: Drink plenty of clear liquids to stay well-hydrated. Eat small quantities of healthy food frequently throughout the day. This pattern of the eating tends to help reduce nausea in . You may take Tylenol (acetaminophen) up to 650 mg every 4 hours as needed for headache. Please contact your obstetrical provider to discuss your frequent nausea and lightheadedness. You may use doxylamine (Unisom) 25 mg purchased [id number] to help control nausea. Take 25 mg at bedtime. This should help with nausea throughout the entire next day. Return to the emergency room if you have worsening symptoms despite following these instructions. All discharge instructions reviewed with patient and/or family. Voiced understanding. JUAN DANIEL VILLA MD May 30, 2022 15:50
[2022-05-30 16:00] VITALS: BP_SYST 102; BP_SYST 104; BP_SYST 106; BP_DIAS 70; BP_DIAS 72; BP_DIAS 77
[2022-05-30] MEDS ORDERED: ACETAMINOPHEN 325 MG TABLET PO ONE (16:00)
[2022-05-30 16:08] VITALS: BP 106/77
== END 2022-05-30 16:22 | disposition home or self-care (01) ==
LOC: EDUNIT# 14:01 → ER 14:04
DX: O26.892 Other specified pregnancy related conditions, second trimester (principal); O21.9 Vomiting of pregnancy, unspecified; R51.9 Headache, unspecified; R42 Dizziness and giddiness; Z3A.17 17 weeks gestation of pregnancy; Z20.822 Contact with and (suspected) exposure to COVID-19
CPT/HCPCS: 36415; 80048; 81000; 83735; 85025; 87636; 99283

== ENCOUNTER 2022-07-04 09:58 | Outpatient (CLI) | payer MEDICAID ==
[~2022-07-04] VITALS: Ht 162.6 cm; Wt 66.8 kg
[2022-07-04 10:00] VITALS: BP 106/68
[2022-07-04 10:38] LABS: BILIRUBIN,URINE NEGATIVE (NEGATIVE); CLARITY,URINE CLEAR; COLOR,URINE YELLOW; GLUCOSE, URINE (UA) NEGATIVE (NEGATIVE); KETONES,URINE NEGATIVE (NEGATIVE); LEUKOCYTE ESTERASE ,URINE TRACE (NEGATIVE); NITRITE,URINE NEGATIVE (NEGATIVE); PROTEIN,URINE TRACE (NEGATIVE)
[2022-07-04] MEDS ORDERED: LACTATED RINGERS 1,000 ML IV ONE ×2 (10:45→11:00)
[2022-07-04 10:58] LABS: AMORPHOUS SEDIMENT,UR FEW AMOR URATES /LPF; BACTERIA,URINE NEGATIVE /HPF; RBC,URINE RARE /HPF; WBC,URINE RARE /HPF
[2022-07-04 12:33] VITALS: BP 98/65
--- NOTE | 2022-07-04 20:20 | Diagnostic Imaging Report ---
REASON FOR EXAM: Lost mucous plug. History of labor. COMPARISON: None. TECHNIQUE: Transabdominal ultrasound was performed of a gravid uterus. CLINICAL DATES: , CARMENCITA of 1. FINDINGS: A single live intrauterine gestation is present in cephalic presentation. heart tones measure 140 bpm. The LEONCIO is normal measuring 18.7 cm. The placenta is anterior and not low lying. The cervix is closed and measures 4.5 cm in length. Views of the adnexa demonstrate no evidence of mass or free fluid. IMPRESSION: 1. Single live intrauterine gestation in cephalic presentation with heart tones of 140 bpm. The LEONCIO is normal. Recommend continued follow-up as indicated. Dictated by: Dictated on workstation # [id number]
--- NOTE | 2022-07-05 08:41 | Physician Query-Final Dx ---
ART,07/05/22 0841: Clinic Account Progress/Dx Physician Query: Please give diagnosis Please include # weeks gestation Date of Service Jul 04, 2022 at 09:58 JOEL PICKETT DO 07/05/22 1457: Clinic Account Progress/Dx DIAGNOSIS: Diagnosis 22 week GA pelvic pain ART,MayJul 05, 2022 08:41 JOEL PICKETT DO Jul 05, 2022 14:57
== END 2022-07-04 12:33 ==
LOC: WSo 09:58 → LDRP 09:58 → WSo 12:33
PROVIDERS: ATTEND Family Medicine
DX: O99.891 Other specified diseases and conditions complicating pregnancy (principal); R10.2 Pelvic and perineal pain; Z3A.22 22 weeks gestation of pregnancy
CPT/HCPCS: 76815; 81000; 96360; G0463; 99213

== ENCOUNTER 2022-08-02 11:23 | Outpatient (CLI) | payer MEDICAID ==
[~2022-08-02] VITALS: Ht 157.5 cm; Wt 69.1 kg
[2022-08-02 09:51] VITALS: BP 108/67
[2022-08-02 09:52] LABS: BILIRUBIN,URINE NEGATIVE (NEGATIVE); CLARITY,URINE CLEAR; COLOR,URINE YELLOW; GLUCOSE, URINE (UA) NEGATIVE (NEGATIVE); KETONES,URINE NEGATIVE (NEGATIVE); LEUKOCYTE ESTERASE ,URINE 1+ (NEGATIVE); NITRITE,URINE NEGATIVE (NEGATIVE); PROTEIN,URINE NEGATIVE (NEGATIVE)
[2022-08-02 10:02] LABS: BACTERIA,URINE FEW /HPF; WBC,URINE 0-2 /HPF
[2022-08-02] MEDS ORDERED: LACTATED RINGERS 1,000 ML IV SCH (12:00)
[2022-08-02 12:22] VITALS: BP 108/65
--- NOTE | 2022-08-03 08:31 | Physician Query-Final Dx ---
Clinic Account Progress/Dx Physician Query: Please give diagnosis Please include # weeks gestation Date of Service Aug 02, 2022 at 11:23 WHEAT,MayAug 03, 2022 08:31
== END 2022-08-02 14:05 | disposition home or self-care (01) ==
LOC: LDRP 11:23 → WSo 11:23
PROVIDERS: ATTEND Family Medicine
DX: O9A.219 Injury, poisoning and certain other consequences of external causes complicating pregnancy, unspecified trimester (principal); Z3A.00 Weeks of gestation of pregnancy not specified
CPT/HCPCS: 81000; 87088; 96360; 99213

== ENCOUNTER 2022-08-19 15:05 | Outpatient (CLI) | payer MEDICAID ==
[~2022-08-19] VITALS: Ht 162.6 cm; Wt 71.8 kg
[2022-08-19 15:30] VITALS: BP 110/68
[2022-08-19 15:39] LABS: BILIRUBIN,URINE NEGATIVE (NEGATIVE); CLARITY,URINE CLEAR; COLOR,URINE YELLOW; GLUCOSE, URINE (UA) NEGATIVE (NEGATIVE); KETONES,URINE NEGATIVE (NEGATIVE); LEUKOCYTE ESTERASE ,URINE NEGATIVE (NEGATIVE); NITRITE,URINE NEGATIVE (NEGATIVE); PH,URINE 6.5 (5-9); PROTEIN,URINE NEGATIVE (NEGATIVE)
[2022-08-19 15:41] VITALS: BP 110/68
[2022-08-19 16:00] LABS: BACTERIA,URINE TRACE /HPF; WBC,URINE RARE /HPF
--- NOTE | 2022-08-19 18:07 | Diagnostic Imaging Report ---
INDICATION: labor Limited evaluation for cervical length and competency. COMPARISON: 07/04/2022 FINDINGS: Limited sonogram was performed to assess cervical length and competency. Cervix measures 3 cm in length and is closed. Placenta is anterior, not low-lying. The heart rate is documented at 149 bpm beats per minute. Total LEONCIO measures 14.8 cm. position is cephalic. A formal anatomic survey was not performed. CLINICAL DATES: 28 weeks and 5 days. CARMENCITA is 11/06/2022. IMPRESSION: 1. Live intrauterine , with heart rate documented at 149 beats per minute. 2. Cervix measures 3 cm in length and is closed. Dictated by: Dictated on workstation # [id number]
[2022-08-19 22:05] VITALS: BP 101/58
--- NOTE | 2022-08-22 08:22 | Physician Query-Final Dx ---
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
== END 2022-08-19 23:14 | disposition home or self-care (01) ==
LOC: LDRP 15:05 → WSo 15:05
PROVIDERS: ATTEND Family Medicine
DX: O62.9 Abnormality of forces of labor, unspecified (principal); Z3A.00 Weeks of gestation of pregnancy not specified
CPT/HCPCS: 76815; 81000; 99213

== ENCOUNTER 2022-08-26 14:04 | Outpatient (CLI) | payer MEDICAID ==
[~2022-08-26] VITALS: Ht 162.6 cm; Wt 69.9 kg
[2022-08-26 14:00] VITALS: BP 102/68
[2022-08-26 14:15] VITALS: BP 95/52
[2022-08-26 14:30] VITALS: BP 90/56
--- NOTE | 2022-08-29 08:06 | Physician Query-Final Dx ---
ART,08/29/22 0806: Clinic Account Progress/Dx Physician Query: Please give diagnosis Please include # weeks gestation Date of Service Aug 26, 2022 at 14:04 JOEL PICKETT DO 08/30/22 1730: Clinic Account Progress/Dx DIAGNOSIS: Diagnosis 29 wk GA abdominal pain ART,MayAugust 29, 2022 08:06 JOEL PICKETT DO August 30, 2022 17:30
== END 2022-08-26 15:37 | disposition home or self-care (01) ==
LOC: LDRP 14:04 → WSo 14:04
PROVIDERS: ATTEND Family Medicine
DX: O99.891 Other specified diseases and conditions complicating pregnancy (principal); R10.9 Unspecified abdominal pain; Z3A.29 29 weeks gestation of pregnancy
CPT/HCPCS: 99213

== ENCOUNTER 2022-09-18 16:57 | Observation (INO) | payer MEDICAID ==
[~2022-09-18] VITALS: Ht 162.5 cm; Wt 72.3 kg
[2022-09-18 17:15] VITALS: BP 107/74
[2022-09-18 17:20] LABS: BILIRUBIN,URINE NEGATIVE (NEGATIVE); CLARITY,URINE CLEAR; COLOR,URINE YELLOW; GLUCOSE, URINE (UA) NEGATIVE (NEGATIVE); KETONES,URINE NEGATIVE (NEGATIVE); LEUKOCYTE ESTERASE ,URINE NEGATIVE (NEGATIVE); NITRITE,URINE NEGATIVE (NEGATIVE); PROTEIN,URINE NEGATIVE (NEGATIVE)
[2022-09-18 17:27] LABS: BACTERIA,URINE FEW /HPF
[2022-09-18] MEDS ORDERED: LACTATED RINGERS 1,000 ML IV SCH (17:45)
[2022-09-18] MEDS ORDERED: LACTATED RINGERS 1,000 ML IV ONE ×2 (17:48→19:22)
[2022-09-18 18:07] LABS: BASOPHILS % (AUTO) 0 % (0-10); EOSINOPHILS # (AUTO) 0.2 10^3/uL (0.0-0.3); EOSINOPHILS % (AUTO) 3 % (0-10); HEMATOCRIT 37 % (35-52); HEMOGLOBIN 12.5 g/dL (11.5-16.0); LYMPHOCYTES # (AUTO) 1.5 10^3/uL (1.0-4.0); LYMPHOCYTES % (AUTO) 22 % (12-44); MEAN CORPUSCULAR HEMOGLOBIN 32 pg (25-34); MEAN CORPUSCULAR HGB CONC 34 g/dL (32-36); MEAN CORPUSCULAR VOLUME 93 fL (80-99); MONOCYTES # (AUTO) 0.5 10^3/uL (0.0-1.0); MONOCYTES % (AUTO) 7 % (0-12); NEUTROPHILS # (AUTO) 4.7 10^3/uL (1.8-7.8); NEUTROPHILS % (AUTO) 68 % (42-75); PLATELET COUNT 155 10^3/uL (130-400); WHITE BLOOD COUNT 6.9 10^3/uL (4.3-11.0)
[2022-09-18 18:31] LABS: ALBUMIN 3.2 GM/DL (3.2-4.5); POTASSIUM 3.8 MMOL/L (3.6-5.0)
[2022-09-18 18:33] LABS: CALCIUM 8.7 MG/DL (8.5-10.1)
[2022-09-18 18:34] LABS: TOTAL PROTEIN 6.1 GM/DL (6.4-8.2)
[2022-09-18 18:36] LABS: BILIRUBIN,TOTAL 0.2 MG/DL (0.1-1.0)
[2022-09-18 18:37] LABS: CREATININE SERUM 0.51 MG/DL (0.60-1.30)
[2022-09-18 19:25] VITALS: BP 104/67
[2022-09-18] MEDS ORDERED: BETAMETHASONE ACE/NA PHOS 6 MG/ML (CELESTONE SOLUSPAN) ONE (19:28)
[2022-09-18] MEDS: LACTATED RINGERS 1,000 ML IV SCH (19:34)
[2022-09-18] MEDS: BETAMETHASONE ACE/NA PHOS 6 MG/ML (CELESTONE SOLUSPAN) IM SCH (19:34)
[2022-09-18] MEDS ORDERED: TERBUTALINE INJ 1 MG/ML (BRETHINE) AMP ONE (21:08)
[2022-09-18] MEDS ORDERED: TERBUTALINE INJ 1 MG/ML (BRETHINE) AMP SC ONE (21:15)
[2022-09-18 23:15] VITALS: BP 107/61
[2022-09-19] MEDS: LACTATED RINGERS 1,000 ML IV SCH ×2 (03:14→11:16)
[2022-09-19 03:15] VITALS: BP 107/55
[2022-09-19] MEDS ORDERED: TERBUTALINE INJ 1 MG/ML (BRETHINE) AMP SC ONE (08:30)
--- NOTE | 2022-09-19 08:36 | History & Physical-OB ---
OB - Chief Complaint & HPI Date/Time Date of Admission: Date of Admission: September 18, 2022 at 19:01 Date seen by a Provider: September 19, 2022 Time Seen by a Provider: 08:29 Chief Complaint/History OB-Reason for Admission/Chief: Labor Hx : 3 Hx Para: 2 Expected Date of Delivery: Nov 08, 2022 Gestational Age in Weeks: 32 Gestational Age in Days: 6 Other at 32w6d presented to labor and delivery yesterday at 32w5d with abdominal pain that wrapped all the way around uterine area from front to back, initially lasted an hour, then became intermittent. She has a history of labor in one of her previous pregnancies and was on progesterone injections starting at 29 weeks per her report, and delivered at 36 weeks. She has had no complications with this other than contractions. She was seen early on with concern for loss of mucous plug in early second trimester and then at around 28 weeks for contractions when she had US that showed cervical length 3.0 cm and had no clinical cervical change. She reports that at office follow up after that, she had an US there and her cervix had shortened to 2.2 cm. She has been off work, but does care for her two young children, states she doesn't lift them and she mostly stays in bed and they come to her. She also had an SVE then that she reports was 3 cm of dilation in early August. She denies nausea, vomiting, diarrhea. Admits occasional constipation. Admits allergies, denies chest pain, shortness of breath, cough. Yesterday on admit she was reported by nursing to be 2.5 cm. She received a one liter bolus of fluid and then IVF at 125 ml/hr. Her CBC and CMP were normal. She continued to have contractions but remained 2.5 on check by same nurse. She was given betamethasone. Around 4 hours after initial check, after shift change with different nurse, cervical exam reported to be 3/60/-3 and was complaining of more intense pain with contractions. A dose of terbutaline was given with significant decrease in contraction frequency and pain, and she remained 3/60/-3 at 2300 last night. This morning she feels similar, has periods of more intense and closer contractions and periods of more spaced out. Allergies and Home Medications Allergies Coded Allergies: Bleach (Sodium Hypochlorite) (Verified Allergy, Unknown, 06/24/22) adhesive tape (Verified Allergy, Unknown, Rash, 02/09/19) Patient Home Medication List Home Medication List Reviewed: Yes Vit W-Ca,Fe,FA(<1 mg) ( Vitamins) 1 Each Tablet, 1 TAB PO DAILY, (Reported) Entered as Reported by: DORA HERNANDEZ on 11/27/18 1029 OB - History Hx of Present Care: Yes Ultrasounds: Abnormal US findings (short cervix per pt report in third trimester) Obstetrical Complications: Other ( contractions) Information Induced Hypertension: No Maternal Gestational Diabetes: No Hemorrhage: No Obstetrical History Hx : 3 Hx Para: 2 Hx # Term Pregnancies: 1 Hx # Pregnancies: 1 Number of Living Children: 2 Hx Multiple Gestation: No Hx Ectopic : No Hx Stillbirth: No Hx Complication: Yes Hx Induced Hypertens: No Hx Maternal Gestational Diabet: No Hx Hemorrhage: No Delivery History Hx Dystocia: No Hx Forceps Assisted Delivery: No Hx Vacuum Extraction Assisted: No Hx Placenta Abnormality: No Hx Distress: No Hx Large For Gestational Age I: No Hx Small for Gestational Age I: No Hx Section: No Hx Vaginal Delivery Post C-Sec: No Hx Blood Disorders: No Adverse Rxn to Tranfusion: No Patient Past Medical History No chronic medical problems Social History/Family History Alcohol Use: Denies Use Recreational Drug Use: No 2nd Hand Smoke Exposure: No Immunizations First/Initial COVID19 Vaccine: moderna November 2020 Hepatitis A: Yes Hepatitis B: Yes Tetanus Booster (TDap): Unknown Rubella: immune RPR/VDRL: Negative GBS Status: Unknown HBsAG: Negative OB - Admission Exam Physical Exam Vitals: Vital Signs 09/18/22 09/19/22 23:15 03:15 Temp 36.4 Pulse 85 Resp 18 B/P (MAP) 107/55 (72) Pulse Ox 98 O2 Delivery Room Air HEENT: NCAT Lungs: Clear Abdomen: Non tender Extremities: Normal Heart Rate: 130's Accelerations: Accelerations Present Decelerations: No Decelerations Contractions on Admission: < 5 Minutes Apart Labs Laboratory Tests Test 09/18/22 17:05 09/18/22 17:55 09/18/22 18:16 Range/Units Urine Color YELLOW Urine Clarity CLEAR Urine pH 6.0 5-9 Urine Specific [place] 1.025 H 1.016-1.022 Urine Protein NEGATIVE NEGATIVE Urine Glucose (UA) NEGATIVE NEGATIVE Urine Ketones NEGATIVE NEGATIVE Urine Nitrite NEGATIVE NEGATIVE Urine Bilirubin NEGATIVE NEGATIVE Urine Urobilinogen 1.0 < = 1.0 MG/DL Urine Leukocyte Esterase NEGATIVE NEGATIVE Urine RBC (Auto) NEGATIVE NEGATIVE Urine RBC NONE /HPF Urine WBC 2-5 /HPF Urine Squamous Epithelial Cells 2-5 /HPF Urine Crystals NONE /LPF Urine Bacteria FEW H /HPF Urine Casts NONE /LPF Urine Mucus NEGATIVE /LPF Urine Culture Indicated CULTURE PENDING White Blood Count 6.9 4.3-11.0 10^3/uL Red Blood Count 3.92 3.80-5.11 10^6/uL Hemoglobin 12.5 11.5-16.0 g/dL Hematocrit 37 35-52 % Mean Corpuscular Volume 93 80-99 fL Mean Corpuscular Hemoglobin 32 25-34 pg Mean Corpuscular Hemoglobin Concent 34 32-36 g/dL Red Cell Distribution Width 13.0 10.0-14.5 % Platelet Count 155 130-400 10^3/uL Mean Platelet Volume 10.0 9.0-12.2 fL Immature Granulocyte % (Auto) 0 % Neutrophils (%) (Auto) 68 42-75 % Lymphocytes (%) (Auto) 22 12-44 % Monocytes (%) (Auto) 7 0-12 % Eosinophils (%) (Auto) 3 0-10 % Basophils (%) (Auto) 0 0-10 % Neutrophils # (Auto) 4.7 1.8-7.8 10^3/uL Lymphocytes # (Auto) 1.5 1.0-4.0 10^3/uL Monocytes # (Auto) 0.5 0.0-1.0 10^3/uL Eosinophils # (Auto) 0.2 0.0-0.3 10^3/uL Basophils # (Auto) 0.0 0.0-0.1 10^3/uL Immature Granulocyte # (Auto) 0.0 0.0-0.1 10^3/uL Sodium Level 137 135-145 MMOL/L Potassium Level 3.8 3.6-5.0 MMOL/L Chloride Level 105 98-107 MMOL/L Carbon Dioxide Level 21 21-32 MMOL/L Anion Gap 11 5-14 MMOL/L Blood Urea Nitrogen 4 L 7-18 MG/DL Creatinine 0.51 L 0.60-1.30 MG/DL Estimat Glomerular Filtration Rate 130 BUN/Creatinine Ratio 8 Glucose Level 83 70-105 MG/DL Calcium Level 8.7 8.5-10.1 MG/DL Corrected Calcium 9.3 8.5-10.1 MG/DL Total Bilirubin 0.2 0.1-1.0 MG/DL Aspartate Amino Transf (AST/SGOT) 19 5-34 U/L Alanine Aminotransferase (ALT/SGPT) 17 0-55 U/L Alkaline Phosphatase 125 40-136 U/L Total Protein 6.1 L 6.4-8.2 GM/DL Albumin 3.2 3.2-4.5 GM/DL OB - Assessment/Plan/Diagnosis Assessment Admission Dx contractions Third trimester 32 weeks gestation Admission Status: Observation Plan Other Plan contractions- without significant cervical change but with significant (3 cm) dilation at baseline. Betamethasone first dose given. Repeat terbutaline this morning, check US for cervical length and general eval given some persistent pain. If no cervical change by the time of second betamethasone dose, will consider home with modified bedrest. If cervical change anticipate transfer to facility with NICU due to gestational age. KORTNEY ANGELES MD September 19, 2022 08:36
[2022-09-19 08:37] VITALS: BP 97/56
[2022-09-19 15:20] VITALS: BP 116/61
--- NOTE | 2022-09-19 16:46 | Diagnostic Imaging Report ---
INDICATION: Abdominal pain and contractions TECHNIQUE: Multiple real-time grayscale images were obtained of the gravid uterus. CORRELATION: 08/19/2022, 07/04/2022 FINDINGS: Single viable intrauterine currently in a cephalic presentation. Amount of amniotic fluid is normal, index 15.16 cm. Placenta anterior and without evidence for previa. cardiac activity at 142 beats per minutes. Cervical length 6.6 cm. IMPRESSION: 1. Limited obstetrical sonogram imaging and straight a single viable intrauterine , currently in a cephalic presentation. 2. Heart rate at 142 bpm. Normal amount of amniotic fluid. Dictated by: Dictated on workstation # [id number]
[2022-09-19] MEDS: BETAMETHASONE ACE/NA PHOS 6 MG/ML (CELESTONE SOLUSPAN) IM SCH (18:16)
== END 2022-09-19 18:22 | disposition home or self-care (01) ==
LOC: WSo 16:57 → LDRP 19:00 → WSo 19:01 → UNDOADMOB 19:01 → LDRP 19:02 → UNDODISOB 09-19 18:22
PROVIDERS: ADMIT Family Medicine; ATTEND Family Medicine
DX: O60.03 Preterm labor without delivery, third trimester (principal); Z3A.32 32 weeks gestation of pregnancy; Z87.51 Personal history of pre-term labor
CPT/HCPCS: 76815; 80053; 81000; 85025; 87088; 96360; 96361 ×2; 96372 ×2; G0378; G0379; 36415

== ENCOUNTER 2022-10-03 16:20 | Outpatient (CLI) | payer MEDICAID ==
[~2022-10-03] VITALS: Ht 162.6 cm; Wt 73.3 kg
[2022-10-03 16:38] VITALS: BP 121/74
[2022-10-03 16:40] LABS: BILIRUBIN,URINE NEGATIVE (NEGATIVE); CLARITY,URINE CLEAR; COLOR,URINE YELLOW; GLUCOSE, URINE (UA) NEGATIVE (NEGATIVE); KETONES,URINE NEGATIVE (NEGATIVE); LEUKOCYTE ESTERASE ,URINE 1+ (NEGATIVE); NITRITE,URINE NEGATIVE (NEGATIVE); PROTEIN,URINE NEGATIVE (NEGATIVE)
[2022-10-03 17:05] LABS: AMORPHOUS SEDIMENT,UR RARE AMOR URATES /LPF; BACTERIA,URINE FEW /HPF; WBC,URINE 0-2 /HPF
[2022-10-03] MEDS ORDERED: CEPHALEXIN 250 MG (KEFLEX) CAP PO NR (17:15)
[2022-10-03] MEDS ORDERED: CEPH500T PO (17:43)
--- NOTE | 2022-10-04 09:00 | Physician Query-Final Dx ---
ART,10/04/22 0900: Clinic Account Progress/Dx Physician Query: Please give diagnosis Please include # weeks gestation Date of Service Oct 03, 2022 at 16:20 CLEVELAND MARVIN MD 10/25/22 0846: Clinic Account Progress/Dx DIAGNOSIS: Diagnosis Third Trimester 34 week gestation Abdominal pain in ,MayOct 04, 2022 09:00 CLEVELAND MARVIN MD Oct 25, 2022 08:46
== END 2022-10-03 17:55 | disposition home or self-care (01) ==
LOC: LDRP 16:20 → WSo 16:20
PROVIDERS: ATTEND Family Medicine
DX: O99.891 Other specified diseases and conditions complicating pregnancy (principal); R10.9 Unspecified abdominal pain; Z3A.34 34 weeks gestation of pregnancy
CPT/HCPCS: 81000; 87077; 87088; G0463; 99213

== ENCOUNTER 2022-10-08 19:46 | Outpatient (CLI) | payer MEDICAID ==
[~2022-10-08] VITALS: Ht 162.6 cm; Wt 74.8 kg
[2022-10-08 20:00] VITALS: BP 114/70
[2022-10-08 20:05] VITALS: BP 114/70
[2022-10-08 20:30] LABS: BILIRUBIN,URINE NEGATIVE (NEGATIVE); CLARITY,URINE CLEAR; COLOR,URINE YELLOW; GLUCOSE, URINE (UA) NEGATIVE (NEGATIVE); KETONES,URINE NEGATIVE (NEGATIVE); LEUKOCYTE ESTERASE ,URINE TRACE (NEGATIVE); NITRITE,URINE NEGATIVE (NEGATIVE); PROTEIN,URINE NEGATIVE (NEGATIVE)
[2022-10-08] MEDS ORDERED: LACTATED RINGERS 1,000 ML IV ONE (20:42)
[2022-10-08] MEDS ORDERED: LACTATED RINGERS 1,000 ML IV SCH (20:45)
[2022-10-08 20:48] LABS: BACTERIA,URINE NEGATIVE /HPF
[2022-10-08] MEDS ORDERED: D5 LR IV SOLUTION 1,000 ML IV ONE (22:31)
[2022-10-08] MEDS ORDERED: D5 LR IV ONE (22:35)
[2022-10-09 00:15] VITALS: BP 114/70
--- NOTE | 2022-10-10 08:23 | Physician Query-Final Dx ---
Clinic Account Progress/Dx Physician Query: Please give diagnosis Please include # weeks gestation Date of Service Oct 08, 2022 at 19:46 ART,MayOct 10, 2022 08:23
== END 2022-10-09 00:25 | disposition home or self-care (01) ==
LOC: WSo 19:46 → LDRP 19:47 → WSo 10-09 00:25
PROVIDERS: ATTEND Family Medicine
DX: Z34.93 Encounter for supervision of normal pregnancy, unspecified, third trimester (principal); Z3A.35 35 weeks gestation of pregnancy
CPT/HCPCS: 81000; 96360; G0463; 99213

== ENCOUNTER 2022-10-10 10:16 | Inpatient (IN) | payer MEDICAID ==
[~2022-10-10] VITALS: Ht 162.6 cm; Wt 73.8 kg
[2022-10-10] VITALS (31 sets, daily range): BP systolic 95–118; BP diastolic 53–88
[2022-10-10] MEDS ORDERED: AMPICILLIN FOR IV USE 2,000 MG in NS (IVPB) 50 ML IV SCH (15:31)
[2022-10-10] MEDS: D5 LR IV SOLUTION 1,000 ML IV SCH (16:18)
[2022-10-10 19:47] LABS: BASOPHILS % (AUTO) 0 % (0-10); EOSINOPHILS # (AUTO) 0.1 10^3/uL (0.0-0.3); HEMATOCRIT 38 % (35-52); HEMOGLOBIN 12.6 g/dL (11.5-16.0); LYMPHOCYTES # (AUTO) 1.6 10^3/uL (1.0-4.0); LYMPHOCYTES % (AUTO) 21 % (12-44); MEAN CORPUSCULAR HEMOGLOBIN 32 pg (25-34); MEAN CORPUSCULAR HGB CONC 34 g/dL (32-36); MEAN CORPUSCULAR VOLUME 94 fL (80-99); MONOCYTES % (AUTO) 6 % (0-12); NEUTROPHILS % (AUTO) 71 % (42-75)
[2022-10-10 19:57] LABS: MEAN PLATELET VOLUME 9.9 fL (9.0-12.2); PLATELET COUNT 148 10^3/uL (130-400); WHITE BLOOD COUNT 7.6 10^3/uL (4.3-11.0)
[2022-10-10 19:58] LABS: EOSINOPHILS % (AUTO) 1 % (0-10); MONOCYTES # (AUTO) 0.5 10^3/uL (0.0-1.0); NEUTROPHILS # (AUTO) 5.4 10^3/uL (1.8-7.8); SMEAR SCAN COMMENT YES
[2022-10-10] MEDS: AMPICILLIN FOR IV USE 1,000 MG in NS (IVPB) 50 ML IV SCH ×2 (20:07→23:53)
[2022-10-10] MEDS ORDERED: fentaNYL 2 mcg/ml BUPIVA 0.125 100 ML ONE (20:14)
[2022-10-10] MEDS ORDERED: LACTATED RINGERS 1,000 ML IV ONE ×2 (20:15→21:30)
[2022-10-10] MEDS ORDERED: fentaNYL INJ 100 MCG/2 ML AMP ONE (21:03)
[2022-10-10] MEDS ORDERED: BUPIVACAINE 0.25% 10 ML (SENSORCAINE) VIAL ONE (21:03)
[2022-10-10] MEDS ORDERED: fentaNYL 2 mcg/ml BUPIVA 0.125 100 ML EPI SCH (21:30)
[2022-10-10] MEDS ORDERED: NALOXONE 0.4 MG/ML 1 ML (NARCAN) VIAL IV PRN (21:30)
[2022-10-10] MEDS ORDERED: ONDANSETRON 4 MG/2 ML (SDV) Z0FRAN IV PRN (21:30)
[2022-10-10] MEDS ORDERED: fentaNYL INJ 100 MCG/2 ML AMP INJ ONE (21:30)
[2022-10-10] MEDS ORDERED: OXYTOCIN PRE-MIX DRIP 500 ML IV SCH (21:45)
[2022-10-10] MEDS ORDERED: CATHETER FLUSH 10 ML SYR IV SCH (22:00)
--- NOTE | 2022-10-10 22:08 | History & Physical-OB ---
OB - Chief Complaint & HPI Date/Time Date of Admission: Date of Admission: Oct 10, 2022 at 15:29 Date seen by a Provider: Oct 10, 2022 Time Seen by a Provider: 21:30 Chief Complaint/History OB-Reason for Admission/Chief: Onset of Labor Hx : 3 Hx Para: 2 Expected Date of Delivery: Nov 05, 2022 Gestational Age in Weeks: 35 Gestational Age in Days: 6 Other reason for admission: labor and delivery Admission Nurse Assessment Rev: Yes History of Labs urine culture during revealed group B strep Allergies and Home Medications Allergies Coded Allergies: Bleach (Sodium Hypochlorite) (Verified Allergy, Unknown, 06/24/22) adhesive tape (Verified Allergy, Unknown, Rash, 02/09/19) Patient Home Medication List Home Medication List Reviewed: Yes Cephalexin (Cephalexin) 500 Mg Tablet, 500 MG PO BID Prescribed by: MIRYAM SHIELDS on 10/03/22 1741 Vit W-Ca,Fe,FA(<1 mg) ( Vitamins) 1 Each Tablet, 1 TAB PO DAILY, (Reported) Entered as Reported by: DORA HERNANDEZ on 11/27/18 1435 OB - History Hx of Present Care: Yes Ultrasounds: Normal mid trimester US Obstetrical Complications: Other ( labor) Medical Complications: None Obstetrical History Hx : 3 Hx Para: 2 Hx Total # of Abortions (Spona: 0 Hx Multiple Gestation: No Hx Stillbirth: No Hx Complication: Yes Hx Induced Hypertens: No Hx Maternal Gestational Diabet: No Delivery History Hx Dystocia: No Hx Large For Gestational Age I: No Hx Small for Gestational Age I: No Hx Section: No Hx Vaginal Delivery Post C-Sec: No Hx Blood Disorders: No Adverse Rxn to Tranfusion: No Patient Past Medical History No chronic medical problems Social History/Family History Alcohol Use: Denies Use Recreational Drug Use: No 2nd Hand Smoke Exposure: Yes Immunizations First/Initial COVID19 Vaccine: moderna November 2020 Hepatitis A: Yes Hepatitis B: Yes Tetanus Booster (TDap): Unknown OB - Admission Exam Physical Exam Vitals: Vital Signs 10/10/22 10/10/22 19:28 21:23 Temp 37.0 Pulse 95 Resp 18 B/P (MAP) 103/72 (82) Pulse Ox 97 O2 Delivery Room Air HEENT: Moist Membranes Heart: Rhythm Normal Lungs: Clear Abdomen: Gravid Extremities: Normal Cervical Dilatation: 4cm Effacement: 75% Station: -3 Membranes: Intact Heart Rate: 140's Accelerations: Accelerations Present Decelerations: No Decelerations Short Term Variability: Present Fpc Variability: Average (6-25) Contractions on Admission: < 5 Minutes Apart Intensity: Moderate Labs Laboratory Tests Test 10/10/22 16:05 Range/Units White Blood Count 7.6 4.3-11.0 10^3/uL Red Blood Count 4.00 3.80-5.11 10^6/uL Hemoglobin 12.6 11.5-16.0 g/dL Hematocrit 38 35-52 % Mean Corpuscular Volume 94 80-99 fL Mean Corpuscular Hemoglobin 32 25-34 pg Mean Corpuscular Hemoglobin Concent 34 32-36 g/dL Red Cell Distribution Width 13.2 10.0-14.5 % Platelet Count 148 130-400 10^3/uL Mean Platelet Volume 9.9 9.0-12.2 fL Immature Granulocyte % (Auto) 0 % Neutrophils (%) (Auto) 71 42-75 % Lymphocytes (%) (Auto) 21 12-44 % Monocytes (%) (Auto) 6 0-12 % Eosinophils (%) (Auto) 1 0-10 % Basophils (%) (Auto) 0 0-10 % Neutrophils # (Auto) 5.4 1.8-7.8 10^3/uL Lymphocytes # (Auto) 1.6 1.0-4.0 10^3/uL Monocytes # (Auto) 0.5 0.0-1.0 10^3/uL Eosinophils # (Auto) 0.1 0.0-0.3 10^3/uL Basophils # (Auto) 0.0 0.0-0.1 10^3/uL Immature Granulocyte # (Auto) 0.0 0.0-0.1 10^3/uL Percent Immature Platelet Fraction 5.0 0.0-7.6 % Syphilis Total Antibody Negative Negative Smear Scan YES OB - Assessment/Plan/Diagnosis Assessment Assessment: active labor (At 35 weeks 6 days gestation) Admission Dx 1. Intrauterine at 35 weeks 6 days gestation 2. History of labor Admission Status: Inpatient Order (span 2 midnights) Reason for Inpatient Admission: Labor and delivery Plan Plan: Expectant Management Induction Method: AROM Other Plan -epidural -Pitocin augmentation if necessary -Jointer Operator notified -ampicillin protocol CARROLL JERONIMO MD Oct 10, 2022 22:08
[2022-10-10] MEDS ORDERED: MEPIVACAINE (CARBOCAINE) 2% 50 ML VIAL INJ PRN (23:00)
[2022-10-11] VITALS (17 sets, daily range): BP systolic 97–133; BP diastolic 53–81
[2022-10-11] MEDS: D5 LR IV SOLUTION 1,000 ML IV SCH (00:52)
--- NOTE | 2022-10-11 01:14 | OB Labor & Delivery Record ---
L&D History Date of Service Date of Service: Oct 11, 2022 History Expected Date of Delivery: Nov 09, 2023 Gestational Age in Weeks: 35 Hx : 3 Hx Para: 3 Complications Events: Labor <37 wks Operative Indications (Cesarea: N/A-Vaginal Delivery Intrapartal Events: None Other Complications GBS treatment L&D Stage1 Stage One Onset of Labor - Date: Oct 10, 2022 Onset of Labor - Time: 21:13 Monitors and Tracing Monitor Mode: Internal Heart Rate: 130 Monitor Accelerations: Uniform Monitor Decelerations: None Station: -1 Jail Variability: Average (6-10) Short Term Variability: Present Presentation: Vertex Vital Signs VS - Last 72 Hours, by Label 10/10/22 10/10/22 10/10/22 10/10/22 10:45 16:45 17:15 17:45 Temp 36.4 36.8 Pulse 88 86 76 75 Resp 20 20 20 20 B/P (MAP) 117/72 117/69 (85) 111/72 (85) 111/72 (85) Pulse Ox 97 O2 Delivery Room Air 10/10/22 10/10/22 10/10/22 10/10/22 18:15 18:45 19:15 19:28 Temp 36.9 37.0 Pulse 75 75 86 85 Resp 20 20 18 B/P (MAP) 108/72 (84) 109/68 (82) 116/73 (87) 107/62 (77) Pulse Ox 97 98 O2 Delivery Room Air 10/10/22 10/10/22 10/10/22 10/10/22 21:09 21:11 21:13 21:17 Pulse 88 92 93 B/P (MAP) 116/70 (85) 118/88 (98) 112/76 (88) 112/82 (92) Pulse Ox 98 97 98 O2 Delivery Room Air Room Air Room Air 10/10/22 10/10/22 10/10/22 10/10/22 21:20 21:23 21:26 21:29 Pulse 87 95 107 88 B/P (MAP) 110/70 (83) 103/72 (82) 102/70 (81) 112/77 (89) Pulse Ox 97 96 O2 Delivery Room Air Room Air Room Air 10/10/22 10/10/22 10/10/2210/10/23 21:31 21:34 21:38 21:43 Pulse 91 85 88 91 B/P (MAP) 116/77 (90) 103/56 (72) 98/59 (72) 102/60 (74) Pulse Ox 97 96 97 O2 Delivery Room Air Room Air Room Air Room Air 10/10/22 10/10/22 10/10/22 10/10/22 21:49 21:53 21:59 22:03 Pulse 76 84 73 80 B/P (MAP) 102/58 (73) 95/66 (76) 99/61 (74) 101/70 (80) Pulse Ox 97 98 97 98 O2 Delivery Room Air Room Air Room Air Room Air 10/10/22 10/10/22 10/10/22 10/10/22 22:10 22:13 22:29 22:29 Temp 36.7 Pulse 90 83 83 86 B/P (MAP) 101/70 (80) 99/64 (76) 101/61 (74) 105/62 (76) Pulse Ox 95 O2 Delivery Room Air Room Air 10/10/22 10/10/22 10/10/22 10/10/22 22:44 23:14 23:29 23:44 Temp 37.0 Pulse 78 75 71 72 Resp 18 B/P (MAP) 105/68 (80) 98/53 (68) 101/55 (70) 103/63 (76) O2 Delivery Room Air Signs of Distress by FHT Signs of Distress no Rupture of Membranes Spontaneous Ruture of Membrane: No Amniotic Membrane Rupture Time: 2128 Amniotic Membrane Fluid Desc.: Clear Induction/Anesthesia Epidural Cath Placement - Time: 2112 L&D Stage2 Stage Two Stage II Date: Oct 11, 2022 Stage II Time: 01:01 Monitors and Tracing Monitor Mode: Internal Heart Rate: 130 Monitor Accelerations: Uniform Monitor Decelerations: None Jail Variability: Average (6-10) Short Term Variability: Present Position: Left Occiput Anterior Presentation: Vertex Signs of Distress by FHT Signs of Distress no Cord Descript/Complications Cord Vessel Description: 3 Vessels Delivery Type Infant Delivery Method: Spontaneous Vaginal Anterior Shoulder: Left Episiotomy/Perineal Laceration Laceraction(s)/Extensions: No Condition of Infant Delivery 1 minute Comment: 7 5 minute Comment: 9 Condition of Condition of : Living Exam: No Observed Abnormalities Resuscitation Resuscitation: N/A - Spontaneous Resp L&D Stage3 Stage Three Stage III Date: Oct 11, 2022 Stage III Time: 01:06 Pictocin Pitocin ml/hr: 4 Pitocin Administration Comment: 2325- PITOCIN INCREASED PER PROTOCOL Placenta Delivery Placenta Delivery: Spontaneous Delivery Summary Summary Estimated blood loss (mL): 100 Condition of Delivery Examined: Cervix Examined Post Hemorrhage: No Intervention Required none CARROLL JERONIMO MD Oct 11, 2022 01:14
[2022-10-11] MEDS ORDERED: OXYTOCIN PRE-MIX DRIP 500 ML IV SCH (01:15)
[2022-10-11] MEDS ORDERED: MEASLES,MUMPS,RUBELLA 1 EA INJ SQ ONE (01:15)
[2022-10-11] MEDS ORDERED: BENZOCAINE/MENTHOL (DERMOPLAST) 56 ML CAN TP PRN (01:15)
[2022-10-11] MEDS ORDERED: NALOXONE 0.4 MG/ML 1 ML (NARCAN) VIAL IV PRN (01:15)
[2022-10-11] MEDS ORDERED: WITCH HAZEL(TUCKS) 40 EA JAR TOP PRN (01:15)
[2022-10-11] MEDS ORDERED: TETANUS,DIPTH,PERTUSS P/F (BOOSTRIX) 0.5 ML VIAL IM ONE (01:15)
[2022-10-11] MEDS: ACETAMINOPHEN 500 MG TAB (TYLENOL) PO SCH ×4 (01:53→22:48)
[2022-10-11] MEDS: IBUPROFEN 600 MG (MOTRIN) TAB PO SCH ×4 (01:54→22:48)
[2022-10-11] MEDS ORDERED: CATHETER FLUSH 10 ML SYR IV SCH (06:00)
[2022-10-11] MEDS: DOCUSATE SODIUM 100 MG (COLACE) CAP PO SCH ×2 (09:47→21:11)
--- NOTE | 2022-10-11 09:56 | Anesthesia-Regional Post-Op ---
Regional Patient Condition Mental Status: Alert, Oriented x3 Circulation: Same as Pre-Op Headache: Absent Sensation: Full Recovery Motor Block: Absent Post Op Complications Complications None Follow Up Care/Instructions Patient Instructions None needed. Anesthesia/Patient Condition Patient is doing well, no complaints, stable vital signs, no apparent adverse anesthesia problems. No complications reported per nursing. CIERA BRAY DO Oct 11, 2022 09:56
[2022-10-12 05:00] VITALS: BP 108/72
[2022-10-12] MEDS: IBUPROFEN 600 MG (MOTRIN) TAB PO SCH ×2 (05:00→12:50)
[2022-10-12] MEDS: ACETAMINOPHEN 500 MG TAB (TYLENOL) PO SCH ×2 (05:00→12:50)
[2022-10-12 06:16] LABS: BASOPHILS % (AUTO) 1 % (0-10); EOSINOPHILS # (AUTO) 0.2 10^3/uL (0.0-0.3); EOSINOPHILS % (AUTO) 3 % (0-10); HEMATOCRIT 38 % (35-52); HEMOGLOBIN 12.7 g/dL (11.5-16.0); LYMPHOCYTES # (AUTO) 1.5 10^3/uL (1.0-4.0); LYMPHOCYTES % (AUTO) 25 % (12-44); MEAN CORPUSCULAR HEMOGLOBIN 32 pg (25-34); MEAN CORPUSCULAR HGB CONC 34 g/dL (32-36); MEAN CORPUSCULAR VOLUME 94 fL (80-99); MEAN PLATELET VOLUME 10.2 fL (9.0-12.2); MONOCYTES # (AUTO) 0.3 10^3/uL (0.0-1.0); MONOCYTES % (AUTO) 5 % (0-12); NEUTROPHILS # (AUTO) 4.1 10^3/uL (1.8-7.8); NEUTROPHILS % (AUTO) 67 % (42-75); PLATELET COUNT 150 10^3/uL (130-400); WHITE BLOOD COUNT 6.1 10^3/uL (4.3-11.0)
--- NOTE | 2022-10-12 07:17 | Discharge Inst-Women's Service ---
Discharge Inst-Women's Serv Depart Medication/Instructions New, Converted or Re-Newed RX: Other Instructions May take aids-mdg-gyotdwn ibuprofen 200 mg tablets, 2 or 3 every 6 hours if needed for cramps Consults/Follow Up Additional Follow Up: Yes (Dr. Jeronimo in 6 weeks at [facility]) Orders/Referrals contact Dr. Cain for tubal ligation instructions Activity Activity: Activity as Tolerated Driving Instructions: No Driving for 1 Week Nothing Inside Vagina: No [place] (For 6 weeks) Diet Discharge Diet: Regular Diet Return to The Hospital For: As below Symptoms to Report to : Bleeding Excessive, Fever Over 101 Degrees F, Vaginal Discharge Foul For Any Problems or Questions: Contact Your Physician CARROLL JERONIMO MD Oct 12, 2022 07:17
--- NOTE | 2022-10-12 07:22 | Discharge Summary ---
Diagnosis/Chief Complaint Date of Admission Oct 10, 2022 at 15:29 Date of Discharge October 12, 2022 Admission Diagnosis Admission Diagnosis 1. Intrauterine at 35 weeks 6 days gestation Discharge Diagnosis 1. Intrauterine at 35 weeks 6 days gestation Chief Complaint/HPI Chief Complaint/HPI 31-year-old 3 living 2 who initially presents during the PM of October 10 with uterine contractions. Patient was monitored and eventually converted to dilating to 5 cm. She was noted to be at 35 weeks 6 days gestation. She has history of labor and has been with multiple visits for labor. Discharge Summary-OBS Procedures 1. Epidural per anesthesia 2. Spontaneous vaginal delivery Discharge Physical Examination Allergies: Coded Allergies: Bleach (Sodium Hypochlorite) (Verified Allergy, Unknown, 06/24/22) adhesive tape (Verified Allergy, Unknown, Rash, 02/09/19) Vitals & I&Os Vital Sign - Last 12Hours Date Time Temp Pulse Resp B/P (MAP) Pulse Ox O2 Delivery O2 Flow Rate FiO2 10/12/22 05:00 36.1 66 18 108/72 (84) 97 Room Air General Appearance: No Acute Distress Respiratory: Clear to Auscultation Cardiovascular: Regular Rate Abdominal: Soft (With uterus firm) Psych/Mental Status: Mental Status NL Hospital Course Was the Problem List Reviewed?: Yes following admission she underwent routine antepartum she continued to dilate on her own without Pitocin augmentation. She underwent amniotomy at 5-6 cm dilated with clear fluid. Ultimately she went on to completion and delivered a viable male with Apgars of 8 at 1 minute and 8 at 5 minutes. See labor and delivery note for full details. Following delivery she underwent routine care orders. She had no complications during the remainder of hospital stay. She was noted to have a hemoglobin in the morning of October 12 of 12.7 compared to admission of 12.6. She had tolerated regular diet. She was ambulatory and had no complaints of leg pain or chest pain. She was felt ready for dismissal in the morning of October 12, 2022 and to follow-up with myself in 6 weeks at [facility]. She desires tubal ligation and has made arrangements to visit with Dr. Cain. Labs Laboratory Tests 10/12/22 05:38: White Blood Count 6.1, Red Blood Count 4.00, Hemoglobin 12.7, Hematocrit 38, Mean Corpuscular Volume 94, Mean Corpuscular Hemoglobin 32, Mean Corpuscular Hemoglobin Concent 34, Red Cell Distribution Width 12.8, Platelet Count 150, Mean Platelet Volume 10.2, Immature Granulocyte % (Auto) 0, Neutrophils (%) (Auto) 67, Lymphocytes (%) (Auto) 25, Monocytes (%) (Auto) 5, Eosinophils (%) (Auto) 3, Basophils (%) (Auto) 1, Neutrophils # (Auto) 4.1, Lymphocytes # (Auto) 1.5, Monocytes # (Auto) 0.3, Eosinophils # (Auto) 0.2, Basophils # (Auto) 0.0, Immature Granulocyte # (Auto) 0.0 Discharge Instructions to patient/family Please see electronic discharge instructions given to patient. Discharge Medications Reviewed and agree with Discharge Medication list on patient's Discharge Instruction sheet CARROLL JERONIMO MD Oct 12, 2022 07:22
[2022-10-12 09:30] VITALS: BP 112/72
[2022-10-12] MEDS: DOCUSATE SODIUM 100 MG (COLACE) CAP PO SCH (09:43)
[2022-10-12 12:45] VITALS: BP 117/80
[2022-10-12 16:15] VITALS: BP 117/80
== END 2022-10-12 16:15 | disposition home or self-care (01) | DRG 807 ==
LOC: LDRP 10:16 → WSo 10:16 → LDRP 15:29
PROVIDERS: ADMIT Family Medicine; ATTEND Family Medicine
PROC: 10E0XZZ Delivery of Products of Conception, External Approach (ICD-10-PCS; principal; 2022-10-11)
DX: O60.14X0 Preterm labor third trimester with preterm delivery third trimester, not applicable or unspecified (principal); Z37.0 Single live birth; O99.824 Streptococcus B carrier state complicating childbirth; Z3A.35 35 weeks gestation of pregnancy
CPT/HCPCS: 36415; 85025; 86780; 86850; 86900; 86901

== ENCOUNTER 2022-11-01 22:37 | Emergency (ER) | payer MEDICAID ==
[~2022-11-01] VITALS: Ht 162.6 cm; Wt 65.3 kg
[2022-11-01] MEDS ORDERED: ASPIRIN 81 MG CHEW (CHILDREN'S ASA) PO ONE (22:45)
[2022-11-01 22:52] LABS: BASOPHILS % (AUTO) 0 % (0-10); EOSINOPHILS # (AUTO) 0.3 10^3/uL (0.0-0.3); EOSINOPHILS % (AUTO) 3 % (0-10); HEMATOCRIT 44 % (35-52); HEMOGLOBIN 14.6 g/dL (11.5-16.0); LYMPHOCYTES # (AUTO) 2.5 10^3/uL (1.0-4.0); LYMPHOCYTES % (AUTO) 24 % (12-44); MEAN CORPUSCULAR HEMOGLOBIN 31 pg (25-34); MEAN CORPUSCULAR HGB CONC 34 g/dL (32-36); MEAN CORPUSCULAR VOLUME 93 fL (80-99); MEAN PLATELET VOLUME 9.5 fL (9.0-12.2); MONOCYTES # (AUTO) 0.5 10^3/uL (0.0-1.0); MONOCYTES % (AUTO) 5 % (0-12); NEUTROPHILS % (AUTO) 68 % (42-75); PLATELET COUNT 312 10^3/uL (130-400); WHITE BLOOD COUNT 10.3 10^3/uL (4.3-11.0)
--- NOTE | 2022-11-01 23:00 | ED Chest Pain ---
General Chief Complaint: (<6 weeks) Stated Complaint: CHEST PAIN Nursing Triage Note: PT AMB TO RM 5 W C/O LEFT SIDED CP THAT RADIATES TO LEFT SHOULDER BLADE SX 1600 TODAY, DENIES N/V/SOA. PT A&OX4, REPORTS VAGINAL DELIVERY ON 10/11/22. Source: patient, old records History of Present Illness Date Seen by Provider: Nov 01, 2022 Time Seen by Provider: 22:40 Initial Comments PT ARRIVES VIA POV FROM HOME C/O LEFT SIDED CHEST PAIN, RADIATING TO LEFT SHOULDER BLADE SINCE 1600 TODAY--WAS SITTING AT HER MOTHER'S HOUSE WHEN PAIN BEGAN PAIN IS CONSTANT, RATES PAIN 7/10 PAIN IS WORSE WITH TAKING A DEEP BREATH NO SHORTNESS OF BREATH NO FEVER/SWEATS/CHILLS NO DIZZINESS OR SYNCOPE NO PALPITATIONS NO NAUSEA/VOMITING NO SWELLING IN LEGS/FEET OR PAIN IN CALVES PT HAS NOT TAKEN ANYTHING FOR PAIN NO HISTORY OF SIMILAR DENIES SMOKING / ALCOHOL / DRUG USE PT DELIVERED VIA AT 36 WEEKS GESTATION ON 10/11/22. NO COMPLICATIONS, PT IS NOT . SHE IS STILL HAVING SOME SLIGHT BLEEDING. NO PELVIC PAIN/CRAMPING. SHE IS NOT ON CONTROL PT IS AB 0. CHILD IS WITH HER MOTHER AT THIS TIME NO CHRONIC MEDICAL PROBLEMS. PCP: RUDI--GOES TO W[facility] IN CLINIC FOR ALL MEDICAL CARE OB: DR. JERONIMO Allergies and Home Medications Allergies Coded Allergies: Bleach (Sodium Hypochlorite) (Verified Allergy, Unknown, 06/24/22) adhesive tape (Verified Allergy, Unknown, Rash, 02/09/19) Patient Home Medication List Cephalexin (Cephalexin) 500 Mg Tablet, 500 MG PO BID Prescribed by: MIRYAM SHIELDS on 10/03/22 1749 Vit W-Ca,Fe,FA(<1 mg) ( Vitamins) 1 Each Tablet, 1 TAB PO DAILY, (Reported) Entered as Reported by: DORA HERNANDEZ on 11/27/18 1435 Review of Systems Review of Systems Constitutional: no symptoms reported EENTM: No Symptoms Reported Respiratory: No Symptoms Reported Cardiovascular: See HPI Gastrointestinal: No Symptoms Reported Genitourinary: No Symptoms Reported Musculoskeletal: see HPI Skin: no symptoms reported Psychiatric/Neurological: No Symptoms Reported Endocrine: No Symptoms Reported Hematologic/Lymphatic: No Symptoms Reported Past Ssesxpg-Pluzmf-Lueops Hx Patient Social History Tobacco Use?: No Use of E-Cig and/or Vaping dev: No Substance use?: No Alcohol Use?: No Immunizations Up To Date Tetanus Booster (TDap): Unknown PED Vaccines UTD: Yes First/Initial COVID19 Vaccinat: 2020 Second COVID19 Vaccination Kuldip: 2020 Third COVID19 Vaccination Date: NONE COVID19 Vaccine Quilt Maker: MODERNA X2 Seasonal Allergies Seasonal Allergies: Yes Past Medical History Surgeries: No Respiratory: No Cardiac: No Neurological: No : No Hx : 3 Hx Para: 3 Hx Total # of Abortions (Sp): 0 Female Reproductive Disorders: Denies Sexually Transmitted Disease: Yes (hx: chlamydia and gonorrhea) HIV/AIDS: No Genitourinary: Yes (with pregnacy) UTI-Chronic Gastrointestinal: No Musculoskeletal: No Endocrine: No HEENT: No Cancer: No Psychosocial: No Integumentary: No Blood Disorders: No Adverse Reaction/Blood Tranf: No Family Medical History Diabetes mellitus 19 FATHER FH: breast cancer Grandparents FH: heart attack 19 MOTHER FH: lupus Grandparents (Paternal Grandmother) FH: prostate cancer Grandparents Hypertension 19 FATHER No Pertinent Family Hx Physical Exam Vital Signs Vital Signs - First Documented 11/01/22 22:39 Temp 37.1 Pulse 70 Resp 18 B/P (MAP) 123/82 (96) Pulse Ox 97 O2 Delivery Room Air Capillary Refill : Less Than 3 Seconds Height, Weight, BMI Height: 5'4.00" Weight: 124lbs. 6.0oz. 56.772338ir; 24.00 BMI Method:Stated General Appearance: No Apparent Distress, WD/WN, Other (PT DOES NOT APPEAR TO BE ILL OR TO BE IN ANY DISCOMFORT OR DISTRESS) HEENT: PERRL/EOMI Neck: Normal Inspection Respiratory: Normal Breath Sounds, No Accessory Muscle Use, No Respiratory Distress Cardiovascular: Regular Rate, Rhythm, No Edema, No JVD, No Murmur, Normal Peripheral Pulses Gastrointestinal: Non Tender, Soft Extremity: Normal Capillary Refill, Normal Inspection, Normal Range of Motion, Non Tender, No Calf Tenderness, No Pedal Edema Neurologic/Psychiatric: Alert, Oriented x3, No Motor/Sensory Deficits, Normal Mood/Affect, 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 Norm as Tested Skin: Normal Color (PT IS DARK SKINNED), Warm/Dry Progress/Results/Core Measures Results/Orders Lab Results Laboratory Tests Test 11/01/22 22:40 11/01/22 23:32 Range/Units White Blood Count 10.3 4.3-11.0 10^3/uL Red Blood Count 4.70 3.80-5.11 10^6/uL Hemoglobin 14.6 11.5-16.0 g/dL Hematocrit 44 35-52 % Mean Corpuscular Volume 93 80-99 fL Mean Corpuscular Hemoglobin 31 25-34 pg Mean Corpuscular Hemoglobin Concent 34 32-36 g/dL Red Cell Distribution Width 11.8 10.0-14.5 % Platelet Count 312 130-400 10^3/uL Mean Platelet Volume 9.5 9.0-12.2 fL Immature Granulocyte % (Auto) 0 % Neutrophils (%) (Auto) 68 42-75 % Lymphocytes (%) (Auto) 24 12-44 % Monocytes (%) (Auto) 5 0-12 % Eosinophils (%) (Auto) 3 0-10 % Basophils (%) (Auto) 0 0-10 % Neutrophils # (Auto) 7.0 1.8-7.8 10^3/uL Lymphocytes # (Auto) 2.5 1.0-4.0 10^3/uL Monocytes # (Auto) 0.5 0.0-1.0 10^3/uL Eosinophils # (Auto) 0.3 0.0-0.3 10^3/uL Basophils # (Auto) 0.0 0.0-0.1 10^3/uL Immature Granulocyte # (Auto) 0.0 0.0-0.1 10^3/uL Prothrombin Time 13.2 12.2-14.7 SEC INR Comment 1.0 0.8-1.4 Activated Partial Thromboplast Time 33 24-35 SEC D-Dimer 0.25 0.00-0.49 UG/ML Sodium Level 141 135-145 MMOL/L Potassium Level 3.8 3.6-5.0 MMOL/L Chloride Level 106 98-107 MMOL/L Carbon Dioxide Level 22 21-32 MMOL/L Anion Gap 13 5-14 MMOL/L Blood Urea Nitrogen 10 7-18 MG/DL Creatinine 0.86 0.60-1.30 MG/DL Estimat Glomerular Filtration Rate 94 BUN/Creatinine Ratio 12 Glucose Level 106 H 70-105 MG/DL Calcium Level 9.2 8.5-10.1 MG/DL Corrected Calcium 9.1 8.5-10.1 MG/DL Magnesium Level 2.1 1.6-2.4 MG/DL Total Bilirubin 0.2 0.1-1.0 MG/DL Aspartate Amino Transf (AST/SGOT) 16 5-34 U/L Alanine Aminotransferase (ALT/SGPT) 21 0-55 U/L Alkaline Phosphatase 112 40-136 U/L Total Creatine Kinase 43 29-168 U/L Creatine Kinase MB 0.5 <6.6 NG/ML Myoglobin 19.5 10.0-92.0 NG/ML Troponin I < 0.028 <0.028 NG/ML B-Type Natriuretic Peptide 13.2 <100.0 PG/ML Total Protein 7.2 6.4-8.2 GM/DL Albumin 4.1 3.2-4.5 GM/DL Amylase Level 50 25-125 U/L Lipase 7 L 8-78 U/L Serum Test, Qualitative NEGATIVE NEGATIVE Serum Alcohol < 10 <10 MG/DL Urine Color YELLOW Urine Clarity CLEAR Urine pH 6.5 5-9 Urine Specific [place] 1.015 L 1.016-1.022 Urine Protein NEGATIVE NEGATIVE Urine Glucose (UA) NEGATIVE NEGATIVE Urine Ketones NEGATIVE NEGATIVE Urine Nitrite NEGATIVE NEGATIVE Urine Bilirubin NEGATIVE NEGATIVE Urine Urobilinogen 0.2 < = 1.0 MG/DL Urine Leukocyte Esterase 1+ H NEGATIVE Urine RBC (Auto) 1+ H NEGATIVE Urine RBC NONE /HPF Urine WBC 10-25 H /HPF Urine Squamous Epithelial Cells 2-5 /HPF Urine Crystals NONE /LPF Urine Bacteria FEW H /HPF Urine Casts NONE /LPF Urine Mucus SMALL H /LPF Urine Culture Indicated YES Urine Opiates Screen NEGATIVE NEGATIVE Urine Oxycodone Screen NEGATIVE NEGATIVE Urine Methadone Screen NEGATIVE NEGATIVE Urine Propoxyphene Screen NEGATIVE NEGATIVE Urine Barbiturates Screen NEGATIVE NEGATIVE Ur Tricyclic Antidepressants Screen NEGATIVE NEGATIVE Urine Phencyclidine Screen NEGATIVE NEGATIVE Urine Amphetamines Screen NEGATIVE NEGATIVE Urine Methamphetamines Screen NEGATIVE NEGATIVE Urine Benzodiazepines Screen NEGATIVE NEGATIVE Urine Cocaine Screen NEGATIVE NEGATIVE Urine Cannabinoids Screen NEGATIVE NEGATIVE My Orders Orders - ROGER MÁRQUEZ DO Ed Iv/Invasive Line Start (11/01/22 22:45) Ekg Tracing (11/01/22 22:45) Monitor-Rhythm Ecg Trace Only (11/01/22 22:45) Alcohol (11/01/22 22:45) Bnp Kelly (11/01/22 22:45) Fibrin Degradation Products (11/01/22 22:45) Drug Screen Stat (Urine) (11/01/22 22:45) Hcg,Qualitative Serum (11/01/22 22:45) Magnesium (11/01/22 22:45) Ua Culture If Indicated (11/01/22 22:45) Cbc With Automated Diff (11/01/22 22:45) Chest 1 View, Ap/Pa Only (11/01/22 22:45) Comprehensive Metabolic Panel (11/01/22 22:45) Myoglobin Serum (11/01/22 22:45) Protime With Inr (11/01/22 22:45) Partial Thromboplastin Time (11/01/22 22:45) O2 (11/01/22 22:45) Ed Iv/Invasive Line Start (11/01/22 22:45) Creatine Kinase (11/01/22 22:45) Creatine Kinase Mb (11/01/22 22:45) Lipase (11/01/22 22:45) Amylase (11/01/22 22:45) Troponin I Kelly (11/01/22 22:45) Aspirin Chewable Tablet (Baby Aspirin Ch (11/01/22 22:45) Urine Culture (11/01/22 23:32) Medications Given in ED Current Medications Medications Dose Ordered Sig/Raj Route Start Time Stop Time Status Last Admin Dose Admin Aspirin 324 mg ONCE ONCE PO 11/01/22 22:45 11/01/22 22:48 DC 11/01/22 22:56 324 MG Vital Signs/I&O 11/01/22 22:39 Temp 37.1 Pulse 70 Resp 18 B/P (MAP) 123/82 (96) Pulse Ox 97 O2 Delivery Room Air Blood Pressure Mean: 96 Progress Progress Note : Progress Note VITALS ON ARRIVAL: HR 73, RR 14, BP 123/82, O2 SAT 97% ON ROOM AIR GIVEN: -ASPIRIN LABS INCLUDING CBC, CMP, TROPONIN, BNP, D-DIMER ORDERED, WELL EKG AND CXR. LABS ARE ALL UNREMARKABLE, INCLUDING CARDIAC ENZYMES AND D-DIMER EKG IS UNREMARKABLE, IS CXR PAIN RESOLVED SHORTLY AFTER ARRIVAL. DISCUSSED TEST RESULTS, ANTICIPATED COURSE, SYMPTOMATIC TREATMENT, MEDICATION, NEED FOR FOLLOW UP AND RETURN PRECAUTIONS. REVIEWED PRIOR RECORDS, INCLUDING ER VISITS, ADMITS/DELIVERY RECORDS, TESTS. Initial ECG Impression Date: Nov 01, 2022 Initial ECG Impression Time: 22:55 Initial ECG Rate: 65 Initial ECG Rhythm: Normal Sinus Initial ECG Intervals: Normal Initial ECG Impression: Normal Initial ECG Comparisson: No Previous ECG Available Comment INTERPRETED BY ME Diagnostic Imaging Comments CXR-- Departure Impression Primary Impression: Urinary tract infection Additional Impression: Left-sided chest pain Disposition: HOME, SELF-CARE Condition: Improved Departure-Patient Inst. Decision time for Depature: 00:04 [place]: [facility] [place] Primary Care Physician Patient Instructions: Chest Pain, Adult ED, Urinary Tract Infection, Adult (DC) Add. Discharge Instructions: TYLENOL AND MOTRIN NEEDED FOR PAIN LOTS OF WATER--NO COFFEE, POP OR TEA FOLLOW UP WITH YOUR DR IN 2-3 DAYS IF NO BETTER, RETURN TO ER IF WORSE All discharge instructions reviewed with patient and/or family. Voiced understanding. Scripts Nitrofurantoin Monohyd/M-Cryst (Macrobid 100 mg Capsule) 100 Mg Capsule 1 TAB PO BID, #20 CAP Prov: ROGER MÁRQUEZ DO 11/02/22 ROGER MÁRQUEZ DO Nov 01, 2022 23:00
[2022-11-01 23:08] LABS: ALBUMIN 4.1 GM/DL (3.2-4.5); CHLORIDE 106 MMOL/L (98-107); POTASSIUM 3.8 MMOL/L (3.6-5.0); SODIUM 141 MMOL/L (135-145)
[2022-11-01 23:10] LABS: AMYLASE 50 U/L (25-125); CALCIUM 9.2 MG/DL (8.5-10.1); PROTHROMBIN TIME PATIENT 13.2 SEC (12.2-14.7)
[2022-11-01 23:11] LABS: GLUCOSE 106 MG/DL (70-105); TOTAL PROTEIN 7.2 GM/DL (6.4-8.2)
[2022-11-01 23:12] LABS: CARBON DIOXIDE 22 MMOL/L (21-32)
[2022-11-01 23:13] LABS: BILIRUBIN,TOTAL 0.2 MG/DL (0.1-1.0)
[2022-11-01 23:14] LABS: ALKALINE PHOSPHATASE 112 U/L (40-136); CREATININE SERUM 0.86 MG/DL (0.60-1.30); GFR ESTIMATED 94
[2022-11-01 23:15] LABS: BUN/CREATININE RATIO 12
[2022-11-01 23:16] LABS: FIBRIN DEGRADATION PRODUCTS 0.25 UG/ML (0.00-0.49)
[2022-11-01 23:17] LABS: ALANINE AMINOTRANSFERASE 21 U/L (0-55); MAGNESIUM 2.1 MG/DL (1.6-2.4)
[2022-11-01 23:18] LABS: LIPASE 7 U/L (8-78)
[2022-11-01 23:19] LABS: CREATINE KINASE 43 U/L (29-168)
[2022-11-01 23:25] LABS: CREATINE KINASE MB 0.5 NG/ML (<6.6)
[2022-11-01 23:39] LABS: BILIRUBIN,URINE NEGATIVE (NEGATIVE); CLARITY,URINE CLEAR; COLOR,URINE YELLOW; GLUCOSE, URINE (UA) NEGATIVE (NEGATIVE); KETONES,URINE NEGATIVE (NEGATIVE); LEUKOCYTE ESTERASE ,URINE 1+ (NEGATIVE); NITRITE,URINE NEGATIVE (NEGATIVE); PH,URINE 6.5 (5-9); PROTEIN,URINE NEGATIVE (NEGATIVE)
[2022-11-01 23:55] LABS: AMPHETAMINE SCREEN, URINE NEGATIVE (NEGATIVE); BARBITURATE SCREEN URINE NEGATIVE (NEGATIVE); BENZODIAZEPINES SCREEN URINE NEGATIVE (NEGATIVE); CANNABINOID SCREEN, URINE NEGATIVE (NEGATIVE); COCAINE SCREEN URINE NEGATIVE (NEGATIVE); METHADONE STAT NEGATIVE (NEGATIVE); OPIATE SCREEN URINE NEGATIVE (NEGATIVE); OXYCODONE STAT NEGATIVE (NEGATIVE); PROPOXYPHENE STAT NEGATIVE (NEGATIVE); TRICYCLIC ANTIDEPRESSANTS SCRE NEGATIVE (NEGATIVE)
[2022-11-01 23:56] LABS: BACTERIA,URINE FEW /HPF
[2022-11-02] MEDS ORDERED: NITR-65 PO (00:05)
[2022-11-02 00:19] VITALS: BP 107/80
--- NOTE | 2022-11-02 07:38 | Diagnostic Imaging Report ---
INDICATION: Chest pain COMPARISON: 11/08/2019 FINDINGS: Lungs clear. No failure, effusion or pneumothorax. IMPRESSION: Negative. Dictated by: Dictated on workstation # [id number]
== END 2022-11-02 00:19 | disposition home or self-care (01) ==
LOC: EDUNIT# 22:37 → ER 22:38
DX: O86.20 Urinary tract infection following delivery, unspecified (principal); N39.0 Urinary tract infection, site not specified; O90.89 Other complications of the puerperium, not elsewhere classified; R07.89 Other chest pain
CPT/HCPCS: 71045; 80053; 80306; 81000; 82150; 82550; 82553; 83690; 83735; 83874; 83880; 84484; 84703; 85025; 85379; 85610; 85730; 87088; 93005; 93041; 99284; G0480; 36415; 80320

== ENCOUNTER 2022-11-05 21:35 | Emergency (ER) | payer MEDICAID ==
[~2022-11-05] VITALS: Ht 162.6 cm; Wt 65.3 kg
[2022-11-05] MEDS ORDERED: LACTATED RINGERS 1,000 ML IV ONE (22:15)
[2022-11-05] MEDS ORDERED: ONDANSETRON 4 MG/2 ML (SDV) Z0FRAN IVP ONE (22:15)
[2022-11-05 22:38] LABS: BASOPHILS % (AUTO) 0 % (0-10); EOSINOPHILS # (AUTO) 0.2 10^3/uL (0.0-0.3); EOSINOPHILS % (AUTO) 2 % (0-10); HEMATOCRIT 45 % (35-52); HEMOGLOBIN 15.4 g/dL (11.5-16.0); LYMPHOCYTES # (AUTO) 2.3 10^3/uL (1.0-4.0); LYMPHOCYTES % (AUTO) 20 % (12-44); MEAN CORPUSCULAR HEMOGLOBIN 31 pg (25-34); MEAN CORPUSCULAR HGB CONC 34 g/dL (32-36); MEAN CORPUSCULAR VOLUME 91 fL (80-99); MEAN PLATELET VOLUME 9.5 fL (9.0-12.2); MONOCYTES # (AUTO) 0.7 10^3/uL (0.0-1.0); MONOCYTES % (AUTO) 6 % (0-12); NEUTROPHILS # (AUTO) 8.1 10^3/uL (1.8-7.8); NEUTROPHILS % (AUTO) 71 % (42-75); PLATELET COUNT 295 10^3/uL (130-400); WHITE BLOOD COUNT 11.4 10^3/uL (4.3-11.0)
--- NOTE | 2022-11-05 22:55 | ED GI ---
General Chief Complaint: Back Problems Stated Complaint: BACK PAIN Nursing Triage Note: PT AMBULATE TO ROOM FT2 WITHOUT DIFFICULTY WITH C/O BILAT RIB AND BILAT BACK PAIN STARTING YESTERDAY. PT REPORTS VOMITING YESTERDAY THAT DECREASED THE PAIN. PT REPORTS VOMITING TODAY AND PAIN DID NOT IMPROVE. Source of Information: Patient History of Present Illness Date Seen by Provider: Nov 05, 2022 Time Seen by Provider: 22:00 Initial Comments PT ARRIVES VIA POV FROM HOME C/O Allergies and Home Medications Allergies Coded Allergies: Bleach (Sodium Hypochlorite) (Verified Allergy, Unknown, 06/24/22) adhesive tape (Verified Allergy, Unknown, Rash, 02/09/19) Patient Home Medication List Cephalexin (Cephalexin) 500 Mg Tablet, 500 MG PO BID Prescribed by: MIRYAM SHIELDS on 10/03/22 174 Dicyclomine HCl (Dicyclomine HCl) 20 Mg Tablet, 20 MG PO Q6H Prescribed by: ROGER MÁRQUEZ on 11/06/22 0044 Metoclopramide HCl (Reglan) 10 Mg Tablet, 10 MG PO Q6H Prescribed by: ROGER MÁRQUEZ on 11/06/22 0044 Nitrofurantoin Monohyd/M-Cryst (Macrobid 100 mg Capsule) 100 Mg Capsule, 1 TAB PO BID Prescribed by: ROGER MÁRQUEZ on 11/02/22 0005 Ondansetron (Ondansetron Odt) 4 Mg Tab.rapdis, 4 MG PO Q4H Prescribed by: ROGER MÁRQUEZ on 11/06/22 0044 Vit W-Ca,Fe,FA(<1 mg) ( Vitamins) 1 Each Tablet, 1 TAB PO DAILY, (Reported) Entered as Reported by: DORA HERNANDEZ on 11/27/18 1435 Past Fzwuvcb-Wbtlhd-Hqphth Hx Patient Social History Tobacco Use?: No Smoking Status: Never a Smoker Smokeless Tobacco Frequency: Never a User Use of E-Cig and/or Vaping dev: No Use of E-Cig and/or Vaping Dwain: Never a User Substance use?: No Alcohol Use?: No Pt feels they are or have been: No Immunizations Up To Date Tetanus Booster (TDap): Unknown PED Vaccines UTD: Yes First/Initial COVID19 Vaccinat: 2020 Second COVID19 Vaccination Kuldip: 2020 Third COVID19 Vaccination Date: NONE Seasonal Allergies Seasonal Allergies: Yes Past Medical History Surgeries: No Respiratory: No Cardiac: No Neurological: No Female Reproductive Disorders: Denies Sexually Transmitted Disease: Yes (hx: chlamydia and gonorrhea) HIV/AIDS: No Genitourinary: Yes (with pregnacy) UTI-Chronic Gastrointestinal: No Musculoskeletal: No Endocrine: No HEENT: No Cancer: No Psychosocial: No Integumentary: No Blood Disorders: No Adverse Reaction/Blood Tranf: No Family Medical History Diabetes mellitus 19 FATHER FH: breast cancer Grandparents FH: heart attack 19 MOTHER FH: lupus Grandparents (Paternal Grandmother) FH: prostate cancer Grandparents Hypertension 19 FATHER No Pertinent Family Hx Physical Exam Vital Signs Vital Signs - First Documented 11/05/22 21:46 Temp 36.8 Pulse 69 Resp 19 B/P (MAP) 120/85 (97) O2 Delivery Room Air Capillary Refill : Less Than 3 Seconds Height/Weight/BMI Height: 5'4.00" Weight: 124lbs. 6.0oz. 56.107376ie; 24.00 BMI Method:Stated Progress/Results/Core Measures Results/Orders Lab Results Laboratory Tests Test 11/05/22 22:21 11/05/22 23:19 Range/Units White Blood Count 11.4 H 4.3-11.0 10^3/uL Red Blood Count 4.94 3.80-5.11 10^6/uL Hemoglobin 15.4 11.5-16.0 g/dL Hematocrit 45 35-52 % Mean Corpuscular Volume 91 80-99 fL Mean Corpuscular Hemoglobin 31 25-34 pg Mean Corpuscular Hemoglobin Concent 34 32-36 g/dL Red Cell Distribution Width 11.9 10.0-14.5 % Platelet Count 295 130-400 10^3/uL Mean Platelet Volume 9.5 9.0-12.2 fL Immature Granulocyte % (Auto) 0 % Neutrophils (%) (Auto) 71 42-75 % Lymphocytes (%) (Auto) 20 12-44 % Monocytes (%) (Auto) 6 0-12 % Eosinophils (%) (Auto) 2 0-10 % Basophils (%) (Auto) 0 0-10 % Neutrophils # (Auto) 8.1 H 1.8-7.8 10^3/uL Lymphocytes # (Auto) 2.3 1.0-4.0 10^3/uL Monocytes # (Auto) 0.7 0.0-1.0 10^3/uL Eosinophils # (Auto) 0.2 0.0-0.3 10^3/uL Basophils # (Auto) 0.0 0.0-0.1 10^3/uL Immature Granulocyte # (Auto) 0.1 0.0-0.1 10^3/uL Sodium Level 140 135-145 MMOL/L Potassium Level 3.5 L 3.6-5.0 MMOL/L Chloride Level 104 98-107 MMOL/L Carbon Dioxide Level 23 21-32 MMOL/L Anion Gap 13 5-14 MMOL/L Blood Urea Nitrogen 9 7-18 MG/DL Creatinine 0.79 0.60-1.30 MG/DL Estimat Glomerular Filtration Rate 104 BUN/Creatinine Ratio 11 Glucose Level 92 70-105 MG/DL Calcium Level 9.6 8.5-10.1 MG/DL Corrected Calcium 9.3 8.5-10.1 MG/DL Magnesium Level 2.2 1.6-2.4 MG/DL Total Bilirubin 0.7 0.1-1.0 MG/DL Aspartate Amino Transf (AST/SGOT) 53 H 5-34 U/L Alanine Aminotransferase (ALT/SGPT) 33 0-55 U/L Alkaline Phosphatase 135 40-136 U/L Total Protein 7.7 6.4-8.2 GM/DL Albumin 4.4 3.2-4.5 GM/DL Amylase Level 49 25-125 U/L Lipase 6 L 8-78 U/L Serum Test, Qualitative NEGATIVE NEGATIVE Urine Color YELLOW Urine Clarity CLOUDY Urine pH 7.0 5-9 Urine Specific [place] 1.015 L 1.016-1.022 Urine Protein NEGATIVE NEGATIVE Urine Glucose (UA) NEGATIVE NEGATIVE Urine Ketones NEGATIVE NEGATIVE Urine Nitrite NEGATIVE NEGATIVE Urine Bilirubin NEGATIVE NEGATIVE Urine Urobilinogen 2.0 < = 1.0 MG/DL Urine Leukocyte Esterase TRACE H NEGATIVE Urine RBC (Auto) NEGATIVE NEGATIVE Urine RBC NONE /HPF Urine WBC 0-2 /HPF Urine Squamous Epithelial Cells 2-5 /HPF Urine Crystals NONE /LPF Urine Amorphous Sediment FEW ZOLTAN PHOSPHATE H /LPF Urine Bacteria NEGATIVE /HPF Urine Casts NONE /LPF Urine Mucus NEGATIVE /LPF Urine Culture Indicated NO Urine Opiates Screen NEGATIVE NEGATIVE Urine Oxycodone Screen NEGATIVE NEGATIVE Urine Methadone Screen NEGATIVE NEGATIVE Urine Propoxyphene Screen NEGATIVE NEGATIVE Urine Barbiturates Screen NEGATIVE NEGATIVE Ur Tricyclic Antidepressants Screen NEGATIVE NEGATIVE Urine Phencyclidine Screen NEGATIVE NEGATIVE Urine Amphetamines Screen NEGATIVE NEGATIVE Urine Methamphetamines Screen NEGATIVE NEGATIVE Urine Benzodiazepines Screen NEGATIVE NEGATIVE Urine Cocaine Screen NEGATIVE NEGATIVE Urine Cannabinoids Screen NEGATIVE NEGATIVE My Orders Orders - ROGER MÁRQUEZ DO Urine Bedside (11/05/22 22:03) Ua Culture If Indicated (11/05/22 22:03) Ed Iv/Invasive Line Start (11/05/22 22:13) Monitor-Rhythm Ecg Trace Only (11/05/22 22:13) Amylase (11/05/22 22:13) Cbc With Automated Diff (11/05/22 22:13) Comprehensive Metabolic Panel (11/05/22 22:13) Drug Screen Stat (Urine) (11/05/22 22:13) Lipase (11/05/22 22:13) Magnesium (11/05/22 22:13) Ed Iv/Invasive Line Start (11/05/22 22:13) Lactated Ringers (Lr 1000 Ml Iv Solution (11/05/22 22:15) Ondansetron Injection (Zofran Injectio (11/05/22 22:15) Hcg,Qualitative Serum (11/05/22 22:55) Metoclopramide Injection (Reglan Injecti (11/05/22 23:15) Ct Angio Chst/Abd/Pelv W (11/05/22 23:47) Medications Given in ED Current Medications Medications Dose Ordered Sig/Raj Route Start Time Stop Time Status Last Admin Dose Admin Lactated Ringer's 1,000 ml @ 0 mls/hr Q0M ONCE IV 11/05/22 22:15 11/05/22 22:16 DC 11/05/22 22:26 1,000 MLS/HR Metoclopramide HCl 10 mg ONCE ONCE IVP 11/05/22 23:15 11/05/22 23:16 DC 11/05/22 23:18 10 MG Ondansetron HCl 4 mg ONCE ONCE IVP 11/05/22 22:15 11/05/22 22:16 DC 11/05/22 22:26 4 MG Vital Signs/I&O 11/05/22 21:46 Temp 36.8 Pulse 69 Resp 19 B/P (MAP) 120/85 (97) O2 Delivery Room Air Blood Pressure Mean: 97 Progress Progress Note : Progress Note GIVEN: -IV FLUIDS -ZOFRAN -REGLAN SYMPTOM-FREE AND ABDOMEN IS NON-TENDER AT DISMISSAKL Departure Impression Primary Impression: Abdominal pain Additional Impressions: Nausea & vomiting COLITIS NOTED ON CT SCAN ESOPHAGITIS NOTED ON CT SCAN Disposition: HOME, SELF-CARE Condition: Improved Departure-Patient Inst. Decision time for Depature: 00:40 Referrals: [facility] [place] Primary Care Physician ESTEE THACKER DO Patient Instructions: Abdominal Pain, Adult ED, Colitis (DC), Esophagitis, Nausea and Vomiting, Adult (DC) Add. Discharge Instructions: CLEAR LIQUIDS--WATER, BROTH, JELLO, GATORADE BRATS DIET--BANANAS, RICE, APPLESAUCE, TOAST, SALTINES FOLLOW UP WITH DR. THACKER, SURGEON, NEXT WEEK FOR FURTHER CARE--CALL IN THE MORNING TO SCHEDULE AN APPOINTMENT All discharge instructions reviewed with patient and/or family. Voiced understanding. Scripts Pantoprazole Sodium (Protonix) 40 Mg Tablet.dr 40 MG PO DAILY, #15 TAB Prov: LURDES MÁRQUEZA K DO 11/06/22 Dicyclomine HCl (Dicyclomine HCl) 20 Mg Tablet 20 MG PO Q6H for Abdominal Pain, #20 TAB Prov: ROGER MÁRQUEZ K DO 11/06/22 Metoclopramide HCl (Reglan) 10 Mg Tablet 10 MG PO Q6H for Nausea/Vomiting, #10 TAB Prov: ROGER MÁRQUEZ K DO 11/06/22 Ondansetron (Ondansetron Odt) 4 Mg Tab.rapdis 4 MG PO Q4H for Nausea/Vomiting, #10 TAB Prov: WILLILURDESA K DO 11/06/22 WILLILURDESA K DO Nov 05, 2022 22:55
[2022-11-05 23:00] LABS: ALBUMIN 4.4 GM/DL (3.2-4.5); BILIRUBIN,TOTAL 0.7 MG/DL (0.1-1.0); CALCIUM 9.6 MG/DL (8.5-10.1); CREATININE SERUM 0.79 MG/DL (0.60-1.30); MAGNESIUM 2.2 MG/DL (1.6-2.4); POTASSIUM 3.5 MMOL/L (3.6-5.0); TOTAL PROTEIN 7.7 GM/DL (6.4-8.2)
[2022-11-05] MEDS ORDERED: METOCLOPRAMIDE INJ 10 MG/2 ML (REGLAN) IVP ONE (23:15)
[2022-11-05 23:31] LABS: BILIRUBIN,URINE NEGATIVE (NEGATIVE); CLARITY,URINE CLOUDY; COLOR,URINE YELLOW; GLUCOSE, URINE (UA) NEGATIVE (NEGATIVE); KETONES,URINE NEGATIVE (NEGATIVE); LEUKOCYTE ESTERASE ,URINE TRACE (NEGATIVE); NITRITE,URINE NEGATIVE (NEGATIVE); PROTEIN,URINE NEGATIVE (NEGATIVE)
[2022-11-05 23:58] LABS: AMPHETAMINE SCREEN, URINE NEGATIVE (NEGATIVE); BARBITURATE SCREEN URINE NEGATIVE (NEGATIVE); BENZODIAZEPINES SCREEN URINE NEGATIVE (NEGATIVE); CANNABINOID SCREEN, URINE NEGATIVE (NEGATIVE); COCAINE SCREEN URINE NEGATIVE (NEGATIVE); METHADONE STAT NEGATIVE (NEGATIVE); OPIATE SCREEN URINE NEGATIVE (NEGATIVE); OXYCODONE STAT NEGATIVE (NEGATIVE); PROPOXYPHENE STAT NEGATIVE (NEGATIVE); TRICYCLIC ANTIDEPRESSANTS SCRE NEGATIVE (NEGATIVE)
[2022-11-06 00:01] LABS: AMORPHOUS SEDIMENT,UR FEW AMOR PHOSPHATE /LPF; BACTERIA,URINE NEGATIVE /HPF; WBC,URINE 0-2 /HPF
[2022-11-06] MEDS ORDERED: DICY20TA PO (00:44)
[2022-11-06] MEDS ORDERED: METO-310 PO (00:44)
[2022-11-06] MEDS ORDERED: ONDA4TAB11 PO (00:44)
[2022-11-06] MEDS ORDERED: PANT40TA2 PO (00:45)
[2022-11-06 00:56] VITALS: BP 110/78
[2022-11-06] MEDS ORDERED: NS 100 ML (IVPB) BAG IV ONE (01:15)
[2022-11-06] MEDS ORDERED: HOLD METFORMIN - RECEIVED CONTRAST 20 ML VIAL IV SCH (01:15)
[2022-11-06] MEDS ORDERED: IOHEXOL 350 MG/ML 100 ML (OMNIPAQUE 350) VIAL IV ONE (01:15)
--- NOTE | 2022-11-06 07:49 | Diagnostic Imaging Report ---
PROCEDURE: CT angiography of the chest with contrast and CT abdomen and pelvis with contrast. TECHNIQUE: Multiple contiguous axial images were obtained through the chest, abdomen and pelvis after administration of intravenous contrast. 3D MIP reconstructed CT angiography acquisitions of the aorta were then performed. Auto Exposure Controls were utilized during the CT exam to meet ALARA standards for radiation dose reduction. INDICATION: Chest and abdominal pain. Nausea and vomiting. . COMPARISON: None. CTA chest: No aneurysm or dissection in the thoracic aorta. No evidence of pulmonary emboli to the subsegmental pulmonary arteries. The heart size is within normal limits. No pericardial effusion is present. There is no mediastinal, hilar, or axillary lymphadenopathy. The lungs demonstrate no pulmonary nodules or masses. There are no focal areas of consolidation. No pneumothoraces are present. No central endobronchial obstructing lesions are identified. There are no pleural effusions. No acute osseous abnormalities. CTA abdomen and pelvis: No aneurysm or dissection in the abdominal aorta. The liver, spleen, pancreas, adrenal glands, and kidneys have a normal appearance. There is no pathologically enlarged mesenteric or retroperitoneal adenopathy. The bowel loops are nondilated. There is wall thickening of the ascending and transverse colon. The appendix is visualized in the right lower quadrant and has a normal appearance. There is no free fluid or free air. No acute osseous abnormalities. Ureters and bladder are normal. The uterus is prominent, consistent with recent status. There is a small amount of fluid in the endometrial canal. No evidence of abscess or acute bleed. There is no free air, loculated collection, or adenopathy in the pelvis. IMPRESSION: 1. No evidence of pulmonary emboli to the subsegmental pulmonary arteries. 2. No aneurysm or dissection in the thoracic and abdominal aorta. 3. Wall thickening of the ascending and transverse colon. This can be seen with inadequate distention or colitis. No evidence of bowel obstruction. 4. Prominent uterus with fluid in the endometrial canal, consistent with recent status. No evidence of abscess or acute bleed. Agree with overnight report. Dictated by: Dictated on workstation # [id number]
== END 2022-11-06 00:56 | disposition home or self-care (01) ==
LOC: EDUNIT# 21:35 → ER 21:37
DX: K52.9 Noninfective gastroenteritis and colitis, unspecified (principal); K20.90 Esophagitis, unspecified without bleeding
CPT/HCPCS: 36415; 71275; 74174; 80053; 80306; 81000; 82150; 83690; 83735; 84703; 85025

== ENCOUNTER → 2023-01-09 | Outpatient (CLI) | payer MEDICAID ==
[~2023-01-09] MED LIST changes: +DICY20TA PO; +METO-310 PO; +ONDA4TAB11 PO; +PANT40TA2 PO
[2023-01-09 13:09] LABS: HEMATOCRIT 39 % (35-52); MEAN CORPUSCULAR HEMOGLOBIN 30 pg (25-34); MEAN CORPUSCULAR HGB CONC 33 g/dL (32-36); MEAN CORPUSCULAR VOLUME 92 fL (80-99); MEAN PLATELET VOLUME 9.8 fL (9.0-12.2); PLATELET COUNT 350 10^3/uL (130-400); WHITE BLOOD COUNT 5.8 10^3/uL (4.3-11.0)
== END ==
LOC: LAB 12:47
PROVIDERS: ATTEND Obstetrics & Gynecology
DX: Z30.2 Encounter for sterilization (principal)
CPT/HCPCS: 36415; 84703; 85027; 86850; 86900; 86901

== ENCOUNTER 2023-02-28 09:04 | Day surgery (SDC) | payer MEDICAID ==
[~2023-02-28] VITALS: Ht 162.5 cm; Wt 63.5 kg
[2023-02-28] VITALS (11 sets, daily range): BP systolic 110–145; BP diastolic 62–83
[2023-02-28] MEDS ORDERED: NS IV 1000 ML 1,000 ML IV STA (09:56)
[2023-02-28] MEDS ORDERED: ONDANSETRON INJECTION 4 MG/2 ML (SDV) IVP ONE (10:00)
[2023-02-28 10:01] LABS: BASOPHILS % (AUTO) 0 % (0-10); EOSINOPHILS % (AUTO) 0 % (0-10); HEMATOCRIT 44 % (35-52); HEMOGLOBIN 14.6 g/dL (11.5-16.0); LYMPHOCYTES % (AUTO) 11 % (12-44); MEAN CORPUSCULAR HEMOGLOBIN 31 pg (25-34); MEAN CORPUSCULAR HGB CONC 33 g/dL (32-36); MEAN CORPUSCULAR VOLUME 93 fL (80-99); MEAN PLATELET VOLUME 10.4 fL (9.0-12.2); MONOCYTES # (AUTO) 0.4 10^3/uL (0.0-1.0); MONOCYTES % (AUTO) 4 % (0-12); NEUTROPHILS # (AUTO) 7.6 10^3/uL (1.8-7.8); NEUTROPHILS % (AUTO) 84 % (42-75); PLATELET COUNT 388 10^3/uL (130-400)
--- NOTE | 2023-02-28 10:11 | ED General ---
General Chief Complaint: Abdominal/GI Problems Stated Complaint: MID-BACK PAIN | ABD PAIN Nursing Triage Note: PT AMB TO RM 7 WITH CC OF RIGHT LOWER BACK PAIN ON AND OFF SINCE OCTOBER. PT STATES THAT SHE STARTED VOMITING TODAY APPROX 10X. PT WAS TOLD IN OCTOBER THAT IT COULD BE HER GALLBLADDER. TYLENOL WAS TAKEN AT 0750. Source of Information: Patient, Family Exam Limitations: No Limitations (KYLEIGH OLIVERA) History of Present Illness Date Seen by Provider: Feb 28, 2023 Time Seen by Provider: 09:40 Initial Comments This is a 32 yo female that presents with epigastric abdominal pain, nausea, and vomiting for the last 12 hours. Pt states that she's had sx like this since October that "comes and goes" and only presented to ED for these sx back in october and today. Last night, patient ate a sandwich at 8pm, went to sleep at 9pm,and woke up around 10-11pm with sharp epigastric abdominal pain that "shoots through to back", nausea, and vomiting that has not gotten better. Currently, pain is constant since last night and pt has tried tylenol, naproxen, and reglan, but vomited each medication up shortly after ingesting. Pt is unable to tolerate food, but is drinking water. Pain is worse with lying flat. Pt reports that vomit "feels like acid" in her throat and has 1-2 vomits that were "brown" and "looked like coffee grounds". Pt has had associated heat intolerance and diaphoresis. Pt is not on any current daily medications. Denies tobacco, alcohol, and rec drug use. Does state that she drinks "a lot of soda". Follow up clarification indicates that she drinks "2L per day". Denies fever, sore throat, nasal congestion, chest pain, SOA, diarrhea, constipation, dysuria. Positive for dry cough that occurs before vomiting. Reports family history of 1 1/2 year younger brother recently had appendectomy and cholecystectomy. Mom had "heart attack in her 30s" Timing/Duration: 12 Hours Severity: Moderate (KYLEIGH OLIVERA) Allergies and Home Medications Allergies Coded Allergies: Bleach (Sodium Hypochlorite) (Verified Allergy, Unknown, 06/24/22) adhesive tape (Verified Allergy, Unknown, Rash, 02/09/19) Patient Home Medication List Home Medication List Reviewed: Yes (ALICIA PEREZ MD) Cephalexin (Cephalexin) 500 Mg Tablet, 500 MG PO BID Prescribed by: MIRYAM SHIELDS on 10/03/22 1749 Dicyclomine HCl (Dicyclomine HCl) 20 Mg Tablet, 20 MG PO Q6H Prescribed by: ROGER MÁRQUEZ on 11/06/2243 Docusate Sodium (Colace) 100 Mg Capsule, 100 MG PO BID Prescribed by: AYANNA JORGE on 02/28/23 172 Hydrocodone/Acetaminophen (Hydrocodone-Acetamin 5-325 mg) 5 Mg-325 Mg Tablet, 1 EACH PO Q4H PRN for PAIN-MODERATE (5-7) Prescribed by: AYANNA JORGE on 02/28/231724 Metoclopramide HCl (Reglan) 10 Mg Tablet, 10 MG PO Q6H Prescribed by: ROGER MÁRQUEZ on 11/06/2243 Nitrofurantoin Monohyd/M-Cryst (Macrobid 100 mg Capsule) 100 Mg Capsule, 1 TAB PO BID Prescribed by: ROGER MÁRQUEZ on 11/02/22 0005 Ondansetron (Ondansetron Odt) 4 Mg Tab.rapdis, 4 MG PO Q4H Prescribed by: ROGER MÁRQUEZ on 11/06/2243 Pantoprazole Sodium (Protonix) 40 Mg Tablet.dr, 40 MG PO DAILY Prescribed by: ROGER MÁRQUEZ on 11/06/2244 Vit W-Ca,Fe,FA(<1 mg) ( Vitamins) 1 Each Tablet, 1 TAB PO ZACH VIEIRA, (Reported) Entered as Reported by: DORA HERNANDEZ on 11/27/18 1435 Review of Systems Review of Systems Constitutional: see HPI EENTM: see HPI Respiratory: see HPI Cardiovascular: see HPI Gastrointestinal: see HPI Genitourinary: see HPI Musculoskeletal: see HPI Skin: no symptoms reported Psychiatric/Neurological: No Symptoms Reported Hematologic/Lymphatic: No Symptoms Reported Immunological/Allergic: no symptoms reported (KYLEIGH OLIVERA) Past Aptvogn-Matuhd-Thnwep Hx Patient Social History Tobacco Use?: No Substance use?: No Alcohol Use?: No (KYLEIGH OLIVERA) Immunizations Up To Date Tetanus Booster (TDap): Unknown PED Vaccines UTD: Yes First/Initial COVID19 Vaccinat: 2020 Second COVID19 Vaccination Kuldip: 2021 Third COVID19 Vaccination Date: NONE (KYLEIGH OLIVERA) Seasonal Allergies Seasonal Allergies: Yes (KYLEIGH OLIVERA) Past Medical History Surgery/Hospitalization HX: tubal ligation Surgeries: No Respiratory: No Cardiac: No Neurological: No Female Reproductive Disorders: Denies Sexually Transmitted Disease: Yes (hx: chlamydia and gonorrhea) HIV/AIDS: No Genitourinary: Yes (with pregnacy) UTI-Chronic Gastrointestinal: No Musculoskeletal: No Endocrine: No HEENT: No Cancer: No Psychosocial: No Integumentary: No Blood Disorders: No Adverse Reaction/Blood Tranf: No (KYLEIGH OLIVERA) Family Medical History Diabetes mellitus 19 FATHER FH: breast cancer Grandparents FH: heart attack 19 MOTHER FH: lupus Grandparents (Paternal Grandmother) FH: prostate cancer Grandparents Hypertension 19 FATHER No Pertinent Family Hx (KYLEIGH OLIVERA) Physical Exam Vital Signs (ALICIA PEREZ MD) Vital Signs Capillary Refill : (KYLEIGH OLIVERA) Height, Weight, BMI Height: 5'4.00" Weight: 124lbs. 6.0oz. 56.166311pi; 24.00 BMI Method:Stated General Appearance: WD/WN, Mild Distress HEENT: PERRL/EOMI, TMs Normal, Pharynx Normal (no erythema, cobblestoning, or lesions of posterior pharynx), Moist Mucous Membranes Neck: Full Range of Motion, Normal Inspection, Non Tender, Supple, Other (No anterior/posterior cervical lymphadenopathy) Respiratory: Chest Non Tender, Lungs Clear, Normal Breath Sounds, No Accessory Muscle Use, No Respiratory Distress Cardiovascular: Regular Rate, Rhythm, No Edema, No Murmur, Normal Peripheral Pulses (radialis and posterior tibialis pulses 2+ b/l) Gastrointestinal: No Organomegaly, No Pulsatile Mass, Soft (and non distended), Abnormal Bowel Sounds (Hyperactive), Tenderness (Epigastric and RUQ) Neurologic/Psychiatric: Alert, Oriented x3, No Motor/Sensory Deficits, Normal Mood/Affect Skin: Normal Color, Warm/Dry (KYLEIGH OLIVERA) Gastrointestinal: Abnormal Bowel Sounds (Hyperactive), Tenderness (Epigastric and RUQ) (ALICIA PEREZ MD) Progress/Results/Core Measures Suspected Sepsis SIRS Temperature: Pulse: 78 Respiratory Rate: Laboratory Tests 02/28/23 09:59: White Blood Count 9.0 Blood Pressure 128 /97 Mean: 107 Laboratory Tests 02/28/23 09:59: Creatinine 0.72, Platelet Count 388, Total Bilirubin 0.8 (KYLEIGH OLIVERA) Results/Orders Lab Results Laboratory Tests Test 02/28/23 09:40 02/28/23 09:59 Range/Units Urine Test NEGATIVE NEGATIVE White Blood Count 9.0 4.3-11.0 10^3/uL Red Blood Count 4.77 3.80-5.11 10^6/uL Hemoglobin 14.6 11.5-16.0 g/dL Hematocrit 44 35-52 % Mean Corpuscular Volume 93 80-99 fL Mean Corpuscular Hemoglobin 31 25-34 pg Mean Corpuscular Hemoglobin Concent 33 32-36 g/dL Red Cell Distribution Width 12.6 10.0-14.5 % Platelet Count 388 130-400 10^3/uL Mean Platelet Volume 10.4 9.0-12.2 fL Immature Granulocyte % (Auto) 0 % Neutrophils (%) (Auto) 84 H 42-75 % Lymphocytes (%) (Auto) 11 L 12-44 % Monocytes (%) (Auto) 4 0-12 % Eosinophils (%) (Auto) 0 0-10 % Basophils (%) (Auto) 0 0-10 % Neutrophils # (Auto) 7.6 1.8-7.8 10^3/uL Lymphocytes # (Auto) 1.0 1.0-4.0 10^3/uL Monocytes # (Auto) 0.4 0.0-1.0 10^3/uL Eosinophils # (Auto) 0.0 0.0-0.3 10^3/uL Basophils # (Auto) 0.0 0.0-0.1 10^3/uL Immature Granulocyte # (Auto) 0.0 0.0-0.1 10^3/uL Sodium Level 140 135-145 MMOL/L Potassium Level 3.8 3.6-5.0 MMOL/L Chloride Level 106 98-107 MMOL/L Carbon Dioxide Level 21 21-32 MMOL/L Anion Gap 13 5-14 MMOL/L Blood Urea Nitrogen 9 7-18 MG/DL Creatinine 0.72 0.60-1.30 MG/DL Estimat Glomerular Filtration Rate 115 BUN/Creatinine Ratio 13 Glucose Level 107 H 70-105 MG/DL Calcium Level 9.8 8.5-10.1 MG/DL Corrected Calcium 8.5-10.1 MG/DL Total Bilirubin 0.8 0.1-1.0 MG/DL Aspartate Amino Transf (AST/SGOT) 229 H 5-34 U/L Alanine Aminotransferase (ALT/SGPT) 198 H 0-55 U/L Alkaline Phosphatase 146 H 40-136 U/L Total Protein 8.6 H 6.4-8.2 GM/DL Albumin 4.9 H 3.2-4.5 GM/DL Lipase 4 L 8-78 U/L (ALICIA PEREZ MD) My Orders Orders - ALICIA PEREZ MD Ed Iv/Invasive Line Start (02/28/23 09:56) Cbc And Automated Diff (02/28/23 09:56) Comprehensive Metabolic Panel (02/28/23 09:56) Lipase (02/28/23 09:56) Ns Iv 1000 Ml (Ns Iv 1000 Ml) (02/28/23 09:56) Ondansetron Injection (Ondansetron Inj (02/28/23 10:00) Us Gallbladder [id number] (02/28/23 10:36) Ketorolac Injection (Ketorolac Injection (02/28/23 10:45) Ns (Ivpb) 250 Ml (Sodium Chloride 0.9% 2 (02/28/23 11:45) Promethazine Injection (Promethazine I (02/28/23 11:45) Fentanyl Injection (Fentanyl Injection (02/28/23 13:00) (ALICIA PEREZ MD) Medications Given in ED (ALICIA PEREZ MD) Vital Signs/I&O (ALICIA PEREZ MD) Vital Signs/I&O Capillary Refill : (KYLEIGH OLIVERA) Blood Pressure Mean: 107 Progress Note : Time: 12:00 Progress Note Patient seen and examined by me. Evaluation today includes history and physical exam with CBC, Chem-12, lipase level, GB ultrasound and urine test. Pertinent physical exam findings thin female in mild distress due to epigastric abdominal pain. She has a soft abdomen that is nondistended, tenderness in the right upper quadrant, equivocal Benites's. Bowel sounds are slightly hyperactive. She appears adequately hydrated. Differential diagnosis includes symptomatic cholelithiasis, biliary colic, cholecystitis, gastric ulcer Labs independently reviewed and interpreted by me. Her CBC is completely normal. Chem-12 is pertinent for elevated liver functions including AST of 229, ALT of 198, alk phos of 146. Her lipase is low at 4. Her urine test is negative. Gallbladder ultrasound demonstrates significant amount of gallstones with mildly dilated common bile duct. Patient is treated in the emergency department with normal saline x1 L, 4 mg of IV ondansetron. She is given 15 mg of Toradol which initially controlled her pain quite well. She later became nauseated and promethazine 25 mg was added. I discussed the case with Dr. Jorge on for general surgery, concern for acute cholecystitis. She did require an additional 25 mcg of fentanyl for pain control. Dr. Jorge indicated that he would indeed admit the patient for cholecystectomy. Patient is informed of the plan of care and is agreeable. All questions are sought and answered. (ALICIA PEREZ MD) Departure Communication (Admissions) Time/Spoke to Admitting Phy: 11:[address] Jorge (general surgery) will come to ED (ALICIA PEREZ MD) Impression Primary Impression: Symptomatic cholelithiasis Additional Impression: Transaminitis Disposition: ADMITTED INPATIENT Condition: Stable Admissions Decision to Admit Reason: Admit from ER (General) Decision to Admit/Date: Feb 28, 2023 Time/Decision to Admit Time: 12:00 (ALICIA PEREZ MD) Departure-Patient Inst. Referrals: [facility] [place] (PCP/Family) Primary Care Physician Scripts Hydrocodone/Acetaminophen (Hydrocodone-Acetamin 5-325 mg) 5 Mg-325 Mg Tablet 1 EACH PO Q4H PRN for PAIN-MODERATE (5-7), #30 TAB Prov: AYANNA JORGE DO 02/28/23 Docusate Sodium (Colace) 100 Mg Capsule 100 MG PO BID, #30 CAP Prov: AYANNA JORGE DO 02/28/23 Verification and Attestation of Medical Student E/M Service A medical student performed and documented this service in my presence. I reviewed and verified all information documented by the medical student and made modifications to such information, when appropriate. I personally performed the physical exam and medical decision making. Alicia Perez, Feb 28, 2023,13:51 (ALICIA PEREZ MD) Copy Copies To 1: JOEL PICKETT DO Copies To 2: AYANNA JORGE DO KYLEIGH OLIVERA Feb 28, 2023 10:11 ALICIA PEREZ MD Feb 28, 2023 11:57
[2023-02-28 10:12] LABS: ALBUMIN 4.9 GM/DL (3.2-4.5); CHLORIDE 106 MMOL/L (98-107); POTASSIUM 3.8 MMOL/L (3.6-5.0); SODIUM 140 MMOL/L (135-145)
[2023-02-28 10:13] LABS: CALCIUM 9.8 MG/DL (8.5-10.1)
[2023-02-28 10:14] LABS: GLUCOSE 107 MG/DL (70-105)
[2023-02-28 10:15] LABS: TOTAL PROTEIN 8.6 GM/DL (6.4-8.2)
[2023-02-28 10:16] LABS: BILIRUBIN,TOTAL 0.8 MG/DL (0.1-1.0); CARBON DIOXIDE 21 MMOL/L (21-32)
[2023-02-28 10:18] LABS: ALKALINE PHOSPHATASE 146 U/L (40-136); CREATININE SERUM 0.72 MG/DL (0.60-1.30); GFR ESTIMATED 115
[2023-02-28 10:19] LABS: BUN/CREATININE RATIO 13
[2023-02-28 10:21] LABS: ALANINE AMINOTRANSFERASE 198 U/L (0-55); LIPASE 4 U/L (8-78)
[2023-02-28] MEDS ORDERED: KETOROLAC INJ 15 MG/ML VIAL IVP ONE (10:45)
[2023-02-28] MEDS ORDERED: PROMETHAZINE INJ 25 MG/ML VIAL IVP ONE (11:45)
[2023-02-28] MEDS ORDERED: NS (IVPB) 250 ML 250 ML IV ONE (11:45)
--- NOTE | 2023-02-28 12:04 | Diagnostic Imaging Report ---
PROCEDURE: US Gallbladder. TECHNIQUE: Multiple real-time grayscale images were obtained over the right upper quadrant in various projections. INDICATION: Epigastric and right upper quadrant pain. COMPARISON: Exam is correlated with CT 11/05/2022. FINDINGS: Liver parenchyma appeared normal. There are tiny stones layering dependently within the gallbladder. The gallbladder wall is non-thickened. The Benites's sign is reportedly negative. There is no intra- or visible extra-hepatic bile duct dilatation. The distal common duct is obscured by gas as well as much of the pancreas. The unobstructed right kidney at 10.7 cm appeared normal. There is no ascites. No acute fluid collection. The visible aorta and IVC are unremarkable. IMPRESSION: Cholelithiasis. No other abnormality identified. Dictated by: Dictated on workstation # [id number]
--- NOTE | 2023-02-28 12:43 | Consultation - Surgery ---
KIT HERNANDEZ 02/28/23 1243: History of Present Illness History of Present Illness Patient Consulted On(anish/time) 02/28/23 12:37 Date Seen by Provider: Feb 28, 2023 Time Seen by Provider: 12:37 History of Present Illness 32-year-old female pt. who is presenting with abdominal pain, nausea, and vomiting. This has been an ongoing issue that first started back in October that was worked up as colitis, esophagitis, with the gallbladder showing no pathology. The pain had been on-off since her last ER visit, usually occur at night, and would resolve with vomiting. Yesterday, the pain started again and has not gone away, despite vomiting 10x. She describes the pain as 6/10 sharp & constant, that radiates to her back. Tylenol and naproxen have not helped. Cannot tolerate food, can drink liquids, specifically 2L of soda a day. Negative Benites's sign. Denies fever, chills. US shows tiny stones w/in gallbladder Allergies and Home Medications Allergies Coded Allergies: Bleach (Sodium Hypochlorite) (Verified Allergy, Unknown, 06/24/22) adhesive tape (Verified Allergy, Unknown, Rash, 02/09/19) Patient Home Medication List Cephalexin (Cephalexin) 500 Mg Tablet, 500 MG PO BID Prescribed by: MIRYAM SHIELDS on 10/03/221748 Dicyclomine HCl (Dicyclomine HCl) 20 Mg Tablet, 20 MG PO Q6H Prescribed by: ROGER MÁRQUEZ on 11/06/2243 Metoclopramide HCl (Reglan) 10 Mg Tablet, 10 MG PO Q6H Prescribed by: ROGER MÁRQUEZ on 11/06/2243 Nitrofurantoin Monohyd/M-Cryst (Macrobid 100 mg Capsule) 100 Mg Capsule, 1 TAB PO BID Prescribed by: ROGER MÁRQUEZ on 11/02/22 0005 Ondansetron (Ondansetron Odt) 4 Mg Tab.rapdis, 4 MG PO Q4H Prescribed by: ROGER MÁRQUEZ on 11/06/2243 Pantoprazole Sodium (Protonix) 40 Mg Tablet.dr, 40 MG PO DAILY Prescribed by: ROGER MÁRQUEZ on 11/06/22 004 Vit W-Ca,Fe,FA(<1 mg) ( Vitamins) 1 Each Tablet, 1 TAB PO DAILY, (Reported) Entered as Reported by: DORA HERNANDEZ on 11/27/18 3488 Past Xcaazwv-Fyhhws-Fzhgxz Hx Patient Social History Smoking Status: Never a Smoker 2nd Hand Smoke Exposure: Yes Recent Hopitalizations: No Alcohol Use?: No Immunizations Up To Date Tetanus Booster (TDap): Unknown PED Vaccines UTD: Yes Date of Influenza Vaccine: Jan 30, 2019 Seasonal Allergies Seasonal Allergies: Yes Surgeries History of Surgeries: No Surgeries: Tubal Ligation Respiratory History of Respiratory Disorde: No Cardiovascular History of Cardiac Disorders: No Neurological History of Neurological Disord: No Reproductive System Sexually Transmitted Disease: Yes (hx: chlamydia and gonorrhea) HIV/AIDS: No Female Reproductive Disorders: Denies Genitourinary History of Genitourinary Disor: Yes (with pregnacy) Genitourinary Disorders: UTI-Chronic Gastrointestinal History of Gastrointestinal Di: No Musculoskeletal History of Musculoskeletal Dis: No Endocrine History of Endocrine Disorders: No HEENT History of HEENT Disorders: No Cancer History of Cancer: No Psychosocial History of Psychiatric Problem: No Integumentary History of Skin or Integumenta: No Blood Transfusions History of Blood Disorders: No Adverse Reaction to a Blood Tr: No Family Medical History Significant Family History: No Pertinent Family Hx Family Medial History: Diabetes mellitus 19 FATHER FH: breast cancer Grandparents FH: heart attack 19 MOTHER FH: lupus Grandparents (Paternal Grandmother) FH: prostate cancer Grandparents Hypertension 19 FATHER Review of Systems-General Constitutional: No chills, No fever EENTM: No eye pain, No throat pain Respiratory: cough (Coughs right before she vomits); No short of breath Cardiovascular: No chest pain, No edema Gastrointestinal: abdominal pain (RUQ, LUQ); No diarrhea, No hematemesis; nausea, vomiting Genitourinary: No dysuria, No frequency Musculoskeletal: No back pain, No joint pain Skin: No change in color, No dryness Psychiatric/Neurological: Denies Anxiety, Denies Headache Physical Exam-General Problems Physical Exam Vital Signs Vital Signs - First Documented 02/28/23 09:16 Temp 36.4 Pulse 78 B/P (MAP) 128/97 (107) Pulse Ox 97 O2 Delivery Room Air Capillary Refill : General Appearance: WD/WN, mild distress Eyes: Bilateral Eye Normal Inspection, Bilateral Eye PERRL, Bilateral Eye EOMI HEENT: PERRL/EOMI Neck: non-tender Respiratory: chest non-tender, normal breath sounds, no respiratory distress, no accessory muscle use Cardiovascular: regular rate, rhythm, no murmur Peripheral Pulses: 2+ Dorsalis Pedis (R), 2+ Left Dors-Pedis (L), 2+ Radial Pulses (R), 2+ Radial Pulses (L) Gastrointestinal: soft; No distended, No guarding; tenderness (RUQ, epigastric) Extremities: non-tender Neurologic/Psychiatric: alert, normal mood/affect, oriented x 3 Skin: normal color, warm/dry Data Review Labs Laboratory Tests 02/28/23 09:59: White Blood Count 9.0, Red Blood Count 4.77, Hemoglobin 14.6, Hematocrit 44, Mean Corpuscular Volume 93, Mean Corpuscular Hemoglobin 31, Mean Corpuscular Hemoglobin Concent 33, Red Cell Distribution Width 12.6, Platelet Count 388, Mean Platelet Volume 10.4, Immature Granulocyte % (Auto) 0, Neutrophils (%) (Auto) 84H, Lymphocytes (%) (Auto) 11L, Monocytes (%) (Auto) 4, Eosinophils (%) (Auto) 0, Basophils (%) (Auto) 0, Neutrophils # (Auto) 7.6, Lymphocytes # (Auto) 1.0, Monocytes # (Auto) 0.4, Eosinophils # (Auto) 0.0, Basophils # (Auto) 0.0, Immature Granulocyte # (Auto) 0.0, Sodium Level 140, Potassium Level 3.8, Chloride Level 106, Carbon Dioxide Level 21, Anion Gap 13, Blood Urea Nitrogen 9, Creatinine 0.72, Estimat Glomerular Filtration Rate 115, BUN/Creatinine Ratio 13, Glucose Level 107H, Calcium Level 9.8, Corrected Calcium , Total Bilirubin 0.8, Aspartate Amino Transf (AST/SGOT) 229H, Alanine Aminotransferase (ALT/SGPT) 198H, Alkaline Phosphatase 146H, Total Protein 8.6H, Albumin 4.9H, Lipase 4L Assessment/Plan Assessment/Plan Assessment/Plan Cholelithiasis Abdominal pain Nausea, vomiting NPO - had a sandwich at 8 pm last night Pain management Antiemetics IVF Evaluation for elective lap cholecystectomy AYANNA JORGE DO 02/28/23 1526: History of Present Illness History of Present Illness History of Present Illness 32 year old female with right upper quadrant abdominal pain that radiates to back. Has had several episodes of this type pain. [place] and vomiting associated with it. Rates 6/10 sharp pain. Food makes worse. This episode started to be constant around 12 today. Denies fever sweats chills shortness of breath or chest pain. U/s demonstrating gallstones. Allergies and Home Medications Allergies Coded Allergies: Bleach (Sodium Hypochlorite) (Verified Allergy, Unknown, 06/24/22) adhesive tape (Verified Allergy, Unknown, Rash, 02/09/19) Patient Home Medication List Home Medication List Reviewed: Yes Cephalexin (Cephalexin) 500 Mg Tablet, 500 MG PO BID Prescribed by: MIRYAM SHIELDS on 10/03/22 174 Dicyclomine HCl (Dicyclomine HCl) 20 Mg Tablet, 20 MG PO Q6H Prescribed by: ROGER MÁRQUEZ on 11/06/2243 Metoclopramide HCl (Reglan) 10 Mg Tablet, 10 MG PO Q6H Prescribed by: ROGER MÁRQUEZ on 11/06/2243 Nitrofurantoin Monohyd/M-Cryst (Macrobid 100 mg Capsule) 100 Mg Capsule, 1 TAB PO BID Prescribed by: ROGER MÁRQUEZ on 11/02/22 0005 Ondansetron (Ondansetron Odt) 4 Mg Tab.rapdis, 4 MG PO Q4H Prescribed by: ROGER MÁRQUEZ on 11/06/2243 Pantoprazole Sodium (Protonix) 40 Mg Tablet.dr, 40 MG PO DAILY Prescribed by: ROGER MÁRQUEZ on 11/06/22 004 Vit W-Ca,Fe,FA(<1 mg) ( Vitamins) 1 Each Tablet, 1 TAB PO DAILY, (Reported) Entered as Reported by: DORA HERNANDEZ on 11/27/18 1765 Past Pkrvinr-Gvmlbh-Gpkcfj Hx Reviewed Nursing Assessment Reviewed/Agree w Nursing PMH: Yes Family Medical History Significant Family History: No Pertinent Family Hx Family Medial History: Diabetes mellitus 19 FATHER FH: breast cancer Grandparents FH: heart attack 19 MOTHER FH: lupus Grandparents (Paternal Grandmother) FH: prostate cancer Grandparents Hypertension 19 FATHER Review of Systems-General Constitutional: No chills, No fever EENTM: No blurred vision, No double vision Respiratory: No dyspnea on exertion, No short of breath Cardiovascular: No chest pain, No palpitations Gastrointestinal: abdominal pain (RUQ), nausea, vomiting Genitourinary: No decreased output, No discharge Musculoskeletal: back pain; No joint pain Skin: No change in color, No change in hair/nails Psychiatric/Neurological: Denies Anxiety, Denies Depressed, Denies Emotional Problems All Other Systems Reviewed Negative Unless Noted: Yes (Negative excepted noted.) Physical Exam-General Problems Physical Exam General Appearance: WD/WN, no apparent distress HEENT: PERRL/EOMI, normal ENT inspection Neck: non-tender, supple Respiratory: chest non-tender, no respiratory distress, no accessory muscle use Cardiovascular: regular rate, rhythm, no JVD Gastrointestinal: soft, tenderness (RUQ, epigastric) Back: normal inspection, no CVA tenderness Extremities: non-tender, no pedal edema Neurologic/Psychiatric: alert, normal mood/affect, oriented x 3 Skin: normal color, warm/dry Lymphatic: no adenopathy Assessment/Plan Assessment/Plan Assessment/Plan Symptomatic Cholelithiasis Abdominal pain-RUQ Nausea, vomiting NPO Pain management Antiemetics IVF Discussed risks and benefits of lap cholecystectomy with ioc all other indicated procedures she understands and wishes to proceed. To or Supervisory-Addendum Brief Verification & Attestation Participated in pt care: history, MDM, physical Personally performed: exam, history, MDM, supervision of care Care discussed with: Medical Student Procedures: n/a Results interpretation: Verified all documentation Verification and Attestation of Medical Student E/M Service A medical student performed and documented this service in my presence. I reviewed and verified all information documented by the medical student and made modifications to such information, when appropriate. I personally performed the physical exam and medical decision making. Ayanna Jorge, Feb 28, 2023,15:26 KIT HERNANDEZ Feb 28, 2023 12:43 AYANNA JORGE DO Feb 28, 2023 15:26
[2023-02-28] MEDS ORDERED: fentaNYL INJECTION 100 MCG/2 ML VIAL IVP ONE ×2 (13:00→15:15)
[2023-02-28] MEDS ORDERED: morphine INJ 4 MG/ML 1 ML (VIAL/SYRINGE) IV PRN (14:45)
[2023-02-28] MEDS ORDERED: PROMETHAZINE INJ 25 MG/ML VIAL IV PRN (14:45)
[2023-02-28] MEDS ORDERED: D5 1/2 NS 1,000 ML IV 1,000 ML IV SCH (14:45)
[2023-02-28] MEDS ORDERED: LIDOCAINE 2% w/EPI 1:100,000 20 ML VIAL ONE (14:50)
[2023-02-28] MEDS ORDERED: ONDANSETRON INJECTION 4 MG/2 ML (SDV) ONE ×2 (15:14→15:22)
[2023-02-28] MEDS ORDERED: SEVOFLURANE (ULTANE) 15 ML INHAL SOLN ONE ×2 (15:14→16:48)
[2023-02-28] MEDS ORDERED: proPOfol INJECTION 200 MG/20 ML VIAL IV ONE (15:14)
[2023-02-28] MEDS ORDERED: fentaNYL INJECTION 100 MCG/2 ML VIAL ONE ×2 (15:14→15:21)
[2023-02-28] MEDS ORDERED: LIDOCAINE PF 2% 5 ML VIAL ONE (15:14)
[2023-02-28] MEDS ORDERED: MIDAZOLAM INJ 2 MG/2 ML VIAL ONE (15:14)
[2023-02-28] MEDS ORDERED: MEPERIDINE INJ 50 MG/ML VIAL IVP ONE (15:15)
[2023-02-28] MEDS ORDERED: LACTATED RINGERS 1,000 ML 1,000 ML IV PRN (15:15)
[2023-02-28] MEDS ORDERED: ONDANSETRON INJECTION 4 MG/2 ML (SDV) IVP PRN (15:15)
[2023-02-28] MEDS ORDERED: morphine INJ 10 MG/ML 1ML (SYR OR VIAL) IVP ONE (15:15)
[2023-02-28] MEDS ORDERED: morphine INJ 10 MG/ML 1ML (SYR OR VIAL) ONE (15:21)
[2023-02-28] MEDS ORDERED: MEPERIDINE INJ 50 MG/ML VIAL ONE (15:22)
[2023-02-28] MEDS ORDERED: LIDOCAINE 2% w/EPI 1:100,000 20 ML VIAL INJ ONE (15:25)
[2023-02-28] MEDS ORDERED: IOHEXOL 300 MG/ML 30 ML (OMNIPAQUE 300) VIAL IV ONE (15:26)
[2023-02-28] MEDS ORDERED: ceFAZolin INJECTION 1,000 MG in NS (IVPB) 50 ML 50 ML IV SCH (15:30)
[2023-02-28] MEDS ORDERED: ceFAZolin INJECTION 1,000 MG ONE (16:01)
[2023-02-28] MEDS ORDERED: ceFAZolin INJECTION 1,000 MG IV ONE (16:07)
[2023-02-28] MEDS ORDERED: GLUCAGON EMERGENCY 1 MG/KIT ONE (16:25)
[2023-02-28] MEDS ORDERED: NEOSTIGMINE 1 MG/1ML 10 ML VIAL ONE (16:43)
[2023-02-28] MEDS ORDERED: GLYCOPYRROLATE INJ 0.2 MG/ML 2 ML VIAL ONE (16:43)
[2023-02-28] MEDS ORDERED: ROCURONIUM 50 MG/5 ML VIAL IV ONE (16:49)
[2023-02-28] MEDS ORDERED: SUGAMMADEX INJ 100 MG/ML 5 ML VIAL IV ONE (16:49)
--- NOTE | 2023-02-28 17:16 | Progress Note-Post Operative ---
Post-Operative Progess Note Surgeon (s)/Still Pump Operator (s) Surgeon AYANNA JORGE DO Still Pump Operator: Dr. Bhat to assist in retraction dissection and closure Pre-Operative Diagnosis symptomatic cholelithiasis Post-Operative Diagnosis symptomatic cholelithiasis, acute cholecystitis, distal cbd obstruction Procedure & Operative Findings Date of Procedure 02/28/23 Procedure Performed/Findings PROCEDURE: Laparoscopic cholecystectomy with intraoperative cholangiogram, transcystic duct common bile duct exploration . COMPLICATIONS: None. PROCEDURE: The patient was taken to the operating suite and was prepped and draped in sterile fashion. A surgical pause was performed. Just superior to the umbilicus, a 12 mm incision was made. Dissection was taken down to the fascia, which was then scored and grasped with a Javier and the abdomen was then entered. A 0 Vicryl suture was placed in a [id number]-[id number] fashion and a Clark trocar was placed and secured. Pneumoperitoneum was achieved. A 5mm trochar place in the subxyphoid and 2 in the right upper quadrant. The gallbladder was then grasped and elevated. Dr. Bhat retracted the gallbladde. The cystic duct, and cystic artery were then dissected out. Clip was placed on the distal portion of the cystic duct which was then partially transected. An arrow catheter was inserted into the duct. The cholangiogram was then performed. There was a distal common bile duct obstruction. Tried flushing it and reshot cholangiogram still with distal common bile duct obstruction. Did trancystic common bile duct exploration. Ballon catheter was inserted through cyst duct into common bile duct and tried several attempts of retrieving obstucting material. The catheter was then slowly advanced and was able to be visualized into the small bowel. This was then tomás back out. Cholangiogram was then performed again and noted no filling defects and contrast made its way into the duodenum. Catheter removed. Clips were placed on proximal portion of the cystic duct and then the duct was then transected. Clips were placed along the proximal and distal portion of the cystic artery which was then transected. Hook cautery was used to dissect the gallbladder from the gallbladder fossa achieving hemostasis. There was some edema around the gallbladder while removing it. The gallbladder was placed in an Endobag and removed through the 12 mm trocar site. The abdomen was then reinspected. Copious amounts of irrigation were used to irrigate the abdomen and there were no signs of active bleeding. Hemostasis had been achieved. The 12 mm fascial defect was then closed with 0 Vicryl suture that had been placed in a [id number] fashion. The abdomen was then desufflated, the trocars were removed. The abdomen was then washed and dried. The skin was then closed using 4-0 Monocryl in a subcuticular fashion. The abdomen was washed and dried and Skin Affix was place over incisions. Patient tolerated the procedure well without any complications and was taken to the recovery room in stable condition. Anesthesia Type general Estimated Blood Loss Estimated blood loss (mL): minimal Specimens/Packing Specimens Removed gallbladder AYANNA JORGE DO Feb 28, 2023 17:16
--- NOTE | 2023-02-28 17:16 | Diagnostic Imaging Report ---
INDICATION: Laparoscopic cholecystectomy. COMPARISON: 02/28/2023. TECHNIQUE: Intraoperative cholangiogram was performed on 02/28/2023. FINDINGS: Intraoperative imaging was performed without radiologist present. Opacification of the intra- and extra-hepatic biliary tree is noted with contrast extending into the duodenum. No focal filling defect within the common bile duct. IMPRESSION: Intraoperative cholangiogram as described above from cholecystectomy. See surgical note for full details. Fluoroscopy Time: 35.3 seconds; Cumulative Dose: 13.86 mGy. Dictated by: Dictated on workstation # [id number]
[2023-02-28] MEDS ORDERED: DOCU-143 PO (17:24)
[2023-02-28] MEDS ORDERED: ACHD5005 PO (17:24)
--- NOTE | 2023-02-28 17:27 | Discharge Inst-Simple/Standard ---
Discharge Inst-Standard Discharge Medications New, Converted or Re-Newed RX: Transmitted to Pharmacy Patient Instructions/Follow Up Plan of Care/Instructions/FU: 2 weeks Aranza Activity as Tolerated: No Discharge Diet: Regular Diet Other Inst to Patient Follow up Appt: Make appointment for 2 weeks. Instructions: No lifting greater than 10 pounds. No strenuous activity. May shower in 24 hours, no tub bath or soaking. Use incentive spirometer at home as directed. No Smoking Skin/Wound Care: You have special glue over incision, it will fall off on it's own. Symptoms to Report: Appetite Changes, Extremity Discoloration, Numbness/Tingling, Swelling Increased, Bleeding Excessive, Eyesight Changes, Pain Increased, Urine Color Change, Constipation(Persistent), Fever over 101 degree F, Pain/Pressure in chest, Urinating Difficulty, Cough Up/Vomit Blood, Heart Beat Irreg/Pounding, Pain/Pressure in jaw, Vaginal Bleeding Increase, Cramps in feet or legs, Lightheadedness, Pain/Pressure in shoulder, Diarrhea(Persistent), Memory Changes Suddenly, Questions/Concerns, Weight gain consecutive days, Dizziness/Fainting, Nausea/Vomiting, Shortness of Breath, Weight gain over 2 pounds. If eyes or skin turn yellow notify physician. If questions or concerns contact your physician Or seek help at emergency department. AYANNA JORGE DO Feb 28, 2023 17:27
--- NOTE | 2023-03-01 14:24 | Anesthesia-General Post-Op ---
General Post Op Complications Complications None Follow Up Care/Instructions Patient Instructions None needed. Anesthesia/Patient Condition Patient Condition Chart reviewed and no apparent adverse anesthesia problems noted. READING,CEE Wilson CRNA Mar 01, 2023 14:24
== END 2023-02-28 21:00 | disposition home or self-care (01) ==
LOC: EDUNIT# 09:04 → ER 09:06 → UNDOADMOB 14:09 → 4TH 14:09 → SDC 14:09 → UNDODISOB 21:00
PROVIDERS: ATTEND Surgery
DX: K80.13 Calculus of gallbladder with acute and chronic cholecystitis with obstruction (principal)
CPT/HCPCS: 36415; 76000; 76705; 80053; 83690; 84703; 85025; 88304; 96361; 96374; 96375